=== PATIENT | female | born 1955 | race Caucasian/White ===

== ENCOUNTER 2025-03-24 12:26 | Outpatient (CLI) | payer MEDICARE, SELFPAY ==
--- NOTE | ~2025-03-24 | MMUS_ITS ---
EXAMINATION: MM diagnostic yvette RT w melina, US breast RT complete HISTORY: Palpable right breast mass TECHNIQUE: Additional 3-D tomosynthesis images of the right breast were performed and synthetic 2-D i mages were generated. CAD analysis was submitted and interpreted. High resolution complete right hardeep st ultrasound was performed. COMPARISON: Comparison to multiple prior studies sequentially, with oldest reviewed study dated 11/29. BREAST PARENCHYMAL COMPOSITION: Dense: The breasts are heterogeneously dense, which may obscure small masses FINDINGS: MAMMOGRAPHIC FINDINGS: There is a new irregular shaped mass in the subareolar location of the right breast. There are enlarg ed right axillary lymph nodes. There are no suspicious calcifications. ULTRASOUND: Complete US of all 4 quadrants of the right breast/s and retroareolar region was reviewed. At C7-9:00 , 3 cm from the nipple there is a complex irregular shaped hypoechoic vascular mass with parallel erica entation, mixed posterior attenuation measuring 4.6 x 1.4 x 3.2 cm. At 10:00, 8 cm from the nipple th ere is an oval parallel oriented hypoechoic 7 mm mass with no significant posterior features. There i s internal and marginal vascularity. There are multiple pathologic appearing lymph nodes which are en larged in the right axilla with effacement of the fatty hilum, suspicious for metastatic disease. IMPRESSION: 1. Complex right breast mass at 7-9:00, 3 cm from the nipple measuring up to 4.6 cm. Additional mass present at 10:00, 8 cm from the nipple measuring 7 mm, likely a satellite nodule. Multiple abnormal r ight axillary lymph nodes measuring up to 1.9 cm greatest dimension. 2. Ultrasound-guided biopsy of dominant right breast mass at 7-9:00 position as well as largest right axillary lymph node recommended. BI-RADS category 4, suspicious findings. Reviewed, dictated and finalized at location A. IMPRESSION: 1. Complex right breast mass at 7-9:00, 3 cm from the nipple measuring up to 4. 6 cm. Additional mass present at 10:00, 8 cm from the nipple measuring 7 mm, li clementine a satellite nodule. Multiple abnormal right axillary lymph nodes measuring up to 1.9 cm greatest dimension. 2. Ultrasound-guided biopsy of dominant right breast mass at 7-9:00 position as well as largest right axillary lymph node recommended. BI-RADS category 4, suspicious findings.
--- OUTSIDE RECORDS SUMMARY | 2025-03-24 12:31 | XMS_ITS | Clinical Summary ---
Author Organization [facility] Address [facility] [place] [address] Care Team Providers Care Plumbing Engineering Draftsperson Name Role Phone Leonard Morales MD Primary Care Provider [phone] Immunizations Immunization Administration Dates Next Due MODERNA COVID-19 (12+) MRNA, LNP-S, PF, 100 MCG/ 0.5 ML DOSE 12/13/2020,11/15/2020 Social History Tobacco Use Types Packs/Day Years Used Date Smoking Tobacco: Never Assessed Comments Unknown Sex and Gender Information Value Date Recorded Sex Assigned at Not on file Legal Sex Female 5:57 PM CDT Gender Identity Not on file Sexual Orientation Not on file Plan of Treatment Health Maintenance Due Date Last Done Comments Colorectal Cancer Screening Colonoscopy (10 Years) 1956 Hepatitis C 1974 DTaP, Tdap and Td Vaccines ( 1 - Tdap) 1975 Mammogram Screening 1996 Pneumococcal Vaccine: 50+ Years (1 of 1 - PCV) 2006 Zoster Vaccines (1 of 2) 2006 Dexa Scan (General) 2021 COVID-19 Vaccine (2023-2 5 season) 2024 12/13/2020, 11/15/2020 RSV Immunization or 60+ Years (1 - 1-dose 75+ series) 2031 Meningococcal B Vaccine Aged Out No l onger eligible based on patient's age to complete this topic Meningococcal Vaccine Aged Out No lorenzo manisha eligible based on patient's age to complete this topic RSV Immunizations Under 20 Months Aged Out No longer eligible b ased on patient's age to complete this topic Care Teams Plumbing Engineering Draftsperson Relationship Specialty Start Date End Date Leonard Morales MD [facility] General 04/10/16
--- OUTSIDE RECORDS SUMMARY | 2025-03-24 12:31 | XMS_ITS | Encounter Summary ---
Author Organization [facility] Care Team Providers Care Subassembly Assembler Name Role Phone Leonard Morales MD Primary Care Provider [phone] Kyle Rodriguez Primary Care Provider [phone] Lloyd Carrasco MD Unavailable [phone] Encounter Details Date Type Department Care Team (Latest Contact Info) Description 01/14/2019 Orders Only [facility]INCONV Provider, MD Dominga [address] [place], [place] [id number] Social History Tobacco Use Types Packs/Day Years Used Date Smoking Tobacco: Never Assessed Comments Unknown Sex and Gender Information Value Date Recorded Sex Assigned at Not on file Legal Sex Female 10:10 PM LOG ROPER Gender Identity Female 04/26/2022 10:45 AM CDT Sexual Orientation Straight 04/26/2022 10 :45 AM CDT documented as of this encounter Plan of Treatment Not on file documented as of this encounter Procedures Procedure Name Priority Date/Time Associated Diagnosis Comments SCAN - LABS 01/15/2019 12:00 AM LOG ROPER SCAN - LABS 01/15/2019 12:00 AM LOG ROPER documented in this encounter Results * SCAN - LABS (01/15/2019 12:00 AM LOG ROPER) Narrative 01/15/2019 12:00 AM LOG ROPER Ordered by an unspecified provider. Historical Provider Final Res ult * SCAN - LABS (01/15/2019 12:00 AM LOG ROPER) Narrative 01/15/2019 12:00 AM LOG ROPER Ordered by an unspecified provider. us Historical Provider Final Res ult documented in this encounter Visit Diagnoses Not on filedocumented in this encounter Care Teams Subassembly Assembler Relationship Specialty Start Date End Date Leonard Morales MD PCP - General Family Medicine 01/31/19 08/07/22 Kyle Rodriguez PA [address] [place] [address] PCP - General Family Medicine 08/08/22 Lloyd Carrasco MD [address] [place] [address] [place] [address] Dermatology 02/24/24 documented as of this encounter
--- OUTSIDE RECORDS SUMMARY | 2025-03-24 12:31 | XMS_ITS | Clinical Summary ---
Author Organization [facility] [facility] Address [address] [place] [address] Care Team Providers Care Small Offset Printer Name Role Phone Kyle Rodriguez Primary Care Provider [phone] Lloyd Carrasco MD Unavailable [phone] Allergies No known active allergies Medications methylPREDNISolo ne (MEDROL DOSEPACK) 4 mg DosepackIndicati ons:SI (sacroiliac) joint dysfunction Take as directed on package. 21 tablet 3 Active Additional Information Patient not taking.Reported on 03/08/2025 diclofenac sodium (VOLTAREN) 1 % gelIndications:S I (sacroiliac) joint dysfunction Apply 4 g topically 4 (four) times a day 100 g 2 3 Active Additional Information Patient not taking.Reported on 03/08/2025 ALPRAZolam (XANAX) 0.5 mg tabletIndication s:Anxiety Take 1 tablet (0.5 mg total) by mouth daily as needed for anxiety 30 tablet 4 Active risedronate (ACTONEL) 35 mg tabletIndication s:Age-related osteoporosis without current pathological fracture Take 1 tablet (35 mg total) by mouth every 7 days with water on empty stomach, nothing by mouth or lie down for next 30 minutes. 4 tablet 11 4 Active ciprofloxacin (CIPRO) 500 mg tablet Take 1 tablet (500 mg total) by mouth 2 (two) times a day for 5 days 10 tablet 5 025 Active Problems Problem Noted Date Diagnosed Date Kyphoscoliosis deformity of spine 08/26/2023 DDD (degenerative disc disease), lumbar 08/26/20 23 Age-related osteoporosis wit hout current pathological fracture 05/07/2022 Assessment & Plan (08/31/2024 3:44 PM CDT): Chronic condition not well controlled P.o. form Fosamax unable to tolerate Assessment & Plan (02/24/2024 1:56 PM CDT): Stat liquid fosamax. Assessment & Plan (08/26/2023 2:19 PM CDT): Chronic Intolerant to fosamax. Cannot swallow. Will need alternate. Patient given option and she will respond back on decision Assessment & Plan (05/07/2022 12:44 PM CDT): Chronic Start ca 1500mg a day Start vit d 5000 international units a day Start prolia Pure hypercholesterolemia 09/18/2021 Assessment & Plan (08/31/2024 11:09 PM CDT): Chronic and currently monitoring diet. Will follow labs. Assessment & Plan (05/07/2022 12:54 PM CDT): Chronic condition not at goal Patient prefers not to start statin therapy. She does agree to use red yeast rice and repeat in 6 months along with increasing exercise work on diet. Assessment & Plan (09/18/2021 2:30 PM AWNING MAKER): Chronic Work on diet and exercise. Repeat lipid panel in 6 mo. ANA (generalized anxiety disorder) 11/13/2019 Assessment & Plan (08/31/2024 11:07 PM CDT): Chronic Stable Continue xanax prn Assessment & Plan (11/14/2021 2:57 PM AWNING MAKER): Chronic Stable Continue xanax prn Assessment & Plan (01/27/2021 10:36 AM CDT): Chronic condition improved with use of buspirone. Continue with current regimen including BuSpar and Viibryd. Assessment & Plan (12/09/2020 9:09 AM AWNING MAKER): Refill xanax with #15 Start buspar 7.5mg bid for 1 week then increase 2tablets bid, Second script at 15mg bid Assessment & Plan (12/25/2019 10:09 AM AWNING MAKER): Start buspar 7.5mg bid She has not taken any xanax in the past 4 weeks. Assessment & Plan (11/13/2019 10:47 AM AWNING MAKER): Xanax 0.5mg every day prn #5 Flexural eczema 11/13/2019 Assessment & Plan (11/14/2021 2:52 PM AWNING MAKER): Chronic condition with current exerbation Start betamethasone lotion Assessment & Plan (11/13/2019 10:47 AM AWNING MAKER): Start betamethasone diproprionate oint Abnormal mammogram of left breast 01/16/2019 Age-related cataract of both eyes 09/12/2018 Grief at loss of child 09/12/2018 Assessment & Plan (12/25/2019 10:09 AM AWNING MAKER): Refer to [facility] counseling Assessment & Plan (11/13/2019 10:47 AM AWNING MAKER): Start viibryd starter stephanie and copay card Encounters Date Type Department Care Team Description 03/17/2025 Telephone [facility] Medical [facility] at [address] [place] [address] Kyle Rodriguez PA Additional Services Or Orders 03/08/2025 8:00 AM CDT Office Visit [facility] at [address] [place] [address] Kyle Rodriguez PA Medicare annual wellness visit, subsequent (Primary Dx); Mass of lower outer quadrant of right breast; Urethritis; Pure hypercholesterolemia from Last 3 Months Immunizations Immunization Administration Dates Next Due Influenza, Unspecified 08/31/2024(Deferr ed: Patient decision),08/26/2023(Deferred: Patient decision),07/12/2022(Deferred: Patient decision),07/12/2022(Deferred: Patient decision),09/18/2021(Deferred: Patient Refused) Moderna SARS-CoV-2 Monovalen t Vaccination (12+ YRS) 12/13/2020,11/15/2020 Pneumococcal Conjugate PCV 13 08/26/2023(Deferre d: Patient decision) Pneumococcal Conjugate Pcv20 08/26/2023( Deferred: Patient decision),02/18/2023(Deferred: Patient Refused) Pneumococcal Polysaccharide PPV23 2022(Deferred: Patient decision),02/18/2023(Deferred: Patient Refused) Surgical History Surgery Date Site/Laterality Comments CATARACT EXTRACTION Bilateral CHOLECYSTECTOMY BREAST EXCISIONAL BIOPSY 03/18/2014 Right Benign-several specimens. ([facility]) Medical History Medical History Date Comments Reactive depression Family History Medical History Relation Name Comments Hypertension Daughter Obesity Daughter Diabetes Father Prostate cancer Father Breast cancer Maternal cousin Breast cancer Mother 50's Diverticulitis Mother Breast cancer Mother's Sister Breast cancer Sister 1 Mental illness Sister 1 Other Sister 2 Breast cancer Sister 3 Relation Name Status Comments Daughter Alive Father Maternal cousin Mother Mother's Sister Sister 1 Alive Sister 2 Sister 3 Alive Son SUICIDE Social History Tobacco Use Types Packs/Day Years Used Date Smoking Tobacco: Former Cigarettes Q uit: 02/20/2019 Smokeless Tobacco: Never Tobacco Cessation:Counseling Given: Not Answered Alcohol Use Standard Drinks/Week Comments Yes 1 (1 standard drink = 0.6 oz pur e alcohol) 3-4 Times a week AUDIT-C Answer Date Recorded Q1: How often do you have a drink containing alc ohol? 2-3 times a week 03/08/2025 Q2: How many drinks containi ng alcohol do you have on a typical day when you are drinking? 1 or 2 03/08/2025 Q3: How often do you have si x or more drinks on one occasion? Never 03/08/2025 PHQ-2 Answer Date Recorded PHQ-2 Total Score (If total score is 3 or more points, staff should administer the PHQ-9) 3 03/08/2025 PHQ-9 Answer Date Recorded PHQ-9 Total Score 6 03/08/2025 Comments No Sex and Gender Information Value Date Recorded Sex Assigned at Not on file Legal Sex Female 10:10 PM AWNING MAKER Gender Identity Female 04/26/2022 10:45 AM CDT Sexual Orientation Straight 04/26/2022 10 :45 AM CDT Obstetrics History Para Term AB IAB SAB Ectopic Multiple Livin g Live Births 2 2 2 Date Outcome GA Total Labor Labor/2nd/3rd Weight Sex Type Anes PTL Gisel A1 A5 Name Clin Term Term Last Filed Vital Signs Vital Sign Reading Time Taken Comments Blood Pressure 152/60 03/08/2025 7:59 AM CDT Pulse 89 03/08/2025 7:59 AM CDT Temperature 36.3 C (97.3 F) 02/24/2024 1:00 PM CDT Respiratory Rate 16 03/08/2025 7:59 AM CDT Oxygen Saturation 98% 03/08/2025 7:59 AM CDT Inhaled Oxygen Concentration - - Weight 57.9 kg (127 lb 11.2 oz) 03/08/2025 7:59 AM CDT Height 165.1 cm (5' 5 ) 03/08/2025 7:59 AM CDT Body Mass Index 21.25 03/08/2025 7:59 AM CDT Plan of Treatment Health Maintenance Due Date Last Done Comments DTaP/Tdap/Td Vaccine (1 - Tdap) 1967 Hepatitis B Screening 1974 Pneumococcal vaccine 65+ (1 of 1 - PCV) 2006 Zoster Vaccine (1 of 2) 2006 Covid-19 Vaccine (5 - 2023-2 5 season) 2024 03/30/2022, 10/18/2021, 12/13/2020, Additional history exists Influenza Vaccine (Season Ended) 2025 Breast Cancer Screening-Mammogram 07/27/2025 07/27/2024, 07/25/2023, 11/29/2021, Additional history exists Depression Screening 03/08/2026 03/08/2025, 03/08/2025, 02/24/2024, Additional history exists Fall Risk Assessment 03/08/2026 03/08/2025, 02/24/2024, 02/18/2023, Additional history exists Well Visit 65+ 03/08/2026 03/08/2025, 02/09, 02/18/2023, Additional history exists Colon Cancer Screening-DNA Stool 04/21/2026 04/21/20 23, 03/19/2020 Osteoporosis Screening-Bone Density Scan 08/26/2026 08/26/2024, 03/23/2022 Hepatitis C Screening Completed 08/31/2021 Colon Cancer Screening-FIT Discontinued 04/21/2023, Procedures Procedure Name Priority Date/Time Associated Diagnosis Comments LIPID PANEL Routine 03/23/2025 12:41 PM CDT Medicare annual wellness visit, subsequent Pure hypercholesterolemia COMPREHENSIVE METABOLIC PANEL Routine 03/23/2025 12:41 PM CDT Medicare annual wellness visit, subsequent Pure hypercholesterolemia CBC WITH AUTO DIFFERENTIAL Routine 03/23/2025 12:41 PM CDT Medicare annual wellness visit, subsequent Pure hypercholesterolemia POCT URINALYSIS DIPSTICK Routine 03/08/2025 9:13 AM CDT Urethritis DEXA AXIAL SKELETON BONE DENSITY 1 OR MORE SITES Schedule Routine, Read Routine (OP Routine) 08/26/2024 3:37 PM CDT Age-related osteoporosis without current pathological fracture SCREENING MAMMOGRAM BILATERAL W SHIVAM Schedule Routine, Read Routine (OP Routine) 07/27/2024 8:21 AM CDT Screening mammogram, encounter for STOOL DNA COLOGUARD Routine 04/21/2023 6:30 AM CDT Colon cancer screening HEPATITIS C ANTIBODY Routine 08/31/2021 9:45 AM CDT Need for hepatitis C screening test from Last 3 Months or Most Recently Relevant to Health Maintenance Results * CBC with auto differential (03/23/2025 12:41 PM CDT) [facility] WBC 8.5 3.4 - 10.8 x10E3/uL [facility] - 01 RBC 4.46 3.77 - 5.28 x10E6/uL [facility] - 01 Hgb 14.2 11.1 - 15.9 g/dL [facility] - 01 Hct 42.9 34.0 - 46.6 % [facility] - 01 MCV 96 79 - 97 fL [facility] - 01 MCH 31.8 26.6 - 33.0 pg [facility] - 01 MCHC 33.1 31.5 - 35.7 g/dL [facility] - 01 Rdw 12.6 11.7 - 15.4 % [facility] - 01 Platelets 211 150 - 450 x10E3/uL [facility] - 01 Neutrophils pct 58 Not Estab. % [facility] - 01 Lymphs pct 27 Not Estab. % [facility] - 01 Monocytes pct 10 Not Estab. % [facility] - 01 Eosinophils pct 3 Not Estab. % [facility] - 01 Basophil pct 1 Not Estab. % [facility] - 01 Neutrophil abs 5.0 1.4 - 7.0 x10E3/uL [facility] - 01 Lymphs (Absolute) 2.3 0.7 - 3.1 x10E3/uL [facility] - 01 Monocyte abs 0.9 0.1 - 0.9 x10E3/uL [facility] - 01 Eosinophils, abs 0.3 0.0 - 0.4 x10E3/uL [facility] - 01 Basophils, abs 0.1 0.0 - 0.2 x10E3/uL [facility] - 01 Immature Granulocytes 1 Not Estab. % [facility] - 01 Immature Grans (Abs) 0.1 0.0 - 0.1 x10E3/uL [facility] - 01 Blood 03/23/2025 12:4 1 PM CDT 03/23/2025 Comment:KAUSHAL Quijano [facility] - 03/24/2025 5:08 AM CDT Performed at: 01 - [facility] [address] [id number] Channel Development Director: Albert Shore PhD, Phone: [phone] us Kyle KAT LAB BLOOD ORDERABLES Final Resu lt Performing Organization Address [facility]/ZIP Co de Phone Number [facility] - * (ABNORMAL) Lipid panel (03/23/2025 12:41 PM CDT) Cholesterol 193 100 - 199 mg/dL [facility] - 01 Triglycerides 145 0 - 149 mg/dL [facility] - 01 HDL Cholesterol 57 >39 mg/dL [facility] - 01 VLDL 25 5 - 40 mg/dL [facility] - 01 LDL, calculated 111(H) 0 - 99 mg/dL [facility] - 01 Blood 03/23/2025 12:4 1 PM CDT 03/23/2025 Comment:KAUSHAL Quijano [facility] - 03/24/2025 8:11 AM CDT Performed at: 01 - [address] [id number] Channel Development Director: Albert Shore PhD, Phone: [phone] us Kyle KAT LAB BLOOD ORDERABLES Final Resu lt Performing Organization Address [facility] Co de Phone Number [facility] - * (ABNORMAL) Comprehensive metabolic panel (03/23/2025 12:41 PM CDT) Pathologist [facility] Glucose 86 70 - 99 mg/dL [facility] - 01 BUN 7(L) 8 - 27 mg/dL [facility] - 01 Creatinine, Serum 0.53(L) 0.57 - 1.00 mg/dL [facility] - 01 eGFR 101 >59 mL/min/1.7 3 [facility] - 01 BUN/creat ratio 13 12 - 28 [facility] - 01 Sodium 141 134 - 144 mmol/L [facility] - 01 Potassium, sr 4.0 3.5 - 5.2 mmol/L [facility] - 01 Chloride 104 96 - 106 mmol/L [facility] - 01 CO2 25 20 - 29 mmol/L [facility] - 01 Calcium 9.4 8.7 - 10.3 mg/dL [facility] - 01 Protein, sr 6.3 6.0 - 8.5 g/dL [facility] - 01 Albumin 4.2 3.9 - 4.9 g/dL [facility] - 01 Globulin, Total 2.1 1.5 - 4.5 g/dL [facility] - 01 Bilirubin, Total 0.7 0.0 - 1.2 mg/dL [facility] - 01 Alk phos 78 44 - 121 IU/L [facility] - 01 AST 19 0 - 40 IU/L [facility] - 01 ALT 13 0 - 32 IU/L [facility] - 01 Blood 03/23/2025 12:4 1 PM CDT 03/23/2025 Comment:UC Narrative [facility] - 03/24/2025 8:11 AM CDT Performed at: - [address] [id number] Channel Development Director: Albert Shore PhD, Phone: [phone] Kyle KAT LAB BLOOD ORDERABLES Final Resu lt [facility] - * (ABNORMAL) POCT urinalysis dipstick (03/08/2025 9:13 AM CDT) Color, Urine, POC Dark Yellow Clarity, ur, POC Clear Clear Glucose, ur, POC Negative Negative MG/DL Bilirubin, ur, POC Small Negative, Small, Moderate, Large Ketones, ur, POC Trace(A) Negative Specific [place], POC 1.030 1.003 - 1.030 Blood, ur, POC Small(A) Negative pH, ur, POC 5.5 5.0 - 8.0 Protein, ur, POC 30.(A) Negative Urobilinogen, urine, POC 0.2 0.2 - 1.0 mg/dL Nitrite, ur, POC Negative Negative Leukocytes, ur, POC Trace(A) Negative Lot Number [id number] Urine 03/08/2025 9:13 AM CDT us Kyle KAT POINT OF CARE TEST ORDERABLES F inal Result * Dexa Axial Skeleton Bone Density 1 or 2 Site (08/26/2024 3:37 PM CDT) Anatomical Region Laterality Modality Body N/A Mammography 08/26/2024 6:31 PM CDT Narrative 08/26/2024 6:32 PM CDT EXAM DESCRIPTION: DEXA AXIAL SKELETON BONE DENSITY 1 OR MORE SITES REASON FOR STUDY: 69 y/o year old F with given history of: Post menopausal status. Patient has taken/is taking vitamin-D and calcium. Can Technician/Model: LucidEra A (S/N [id number]) CLINICAL INFORMATION: Current height: 64 inches Maximum height: 66.5 inches Weight: 136 pounds Risk factors: None COMPARISON: 03/23/2022 FINDINGS: AP LUMBAR SPINE L1-L4: Total BMD is 0.804 g/cm2 T-score is -2.2 This is a 6.9% increase in comparison to prior exam which is statistically significant. LEFT HIP: Total BMD is 0.580 g/cm2 T-score is -3.0 This is a 4.2% decrease in comparison to prior exam which is not statistically significant. Femoral neck BMD is 0.505 g/cm2 T-score is -3.1 FRAX: FRAX not reported due to T-scores of hip, femoral neck and/or spine being at or below -2.5 (Osteoporosis). IMPRESSION: Osteoporosis. REFERENCE: Bone mineral density: T-Score: Normal (T-score above or = -1.0) Low bone mass (T-score between -1.0 and -2.5) replaces the previously used term osteopenia Osteoporosis (T-score = or below -2.5) Z-Score: Within the expected range for age (Z-score above -2.0) Below the expected range for age (Z-score is -2.0 or below) Please see below follow up recommendations. Medical evaluation for secondary causes of low bone mineral density may be appropriate. FRAX is a World Health Organization validated fracture risk assessment tool that calculates a person's 10 year probability of a major osteoporosis related fracture and hip fracture. According to the National Osteoporosis Foundation guidelines, postmenopausal women and men age 50 or older with low bone mass and a 10 year probability of a major osteoporosis related fracture = or greater than 20% or a 10 year probability of a hip fracture = or greater than 3% should be considered for pharmacological treatment for the prevention of osteoporosis. For further information, including treatment recommendations, please refer to the 2019 ISCD Official Positions (http://www.iscd.org) and the NOF's Clinician's Guide to Prevention and Treatment of Osteoporosis (http://www.nof.org/professionals/clinical-guidelines) THIS IS AN ELECTRONICALLY VERIFIED FINAL REPORT 08/26/2024 6:32 PM - Electronically signed by Bonnie Travis M.D. TW: TW Report ID: [id number] Reading Location: [id number] Procedure Note Bonnie Travis MD - 08/26/2024 EXAM DESCRIPTION: DEXA AXIAL SKELETON BONE DENSITY 1 OR MORE SITES REASON FOR STUDY: 69 y/o year old F with given history of: Post menopausal status. Patient has taken/is taking vitamin-D and calcium. Can Technician/Model: LucidEra A (S/N [id number]) CLINICAL INFORMATION: Current height: 64 inches Maximum height: 66.5 inches Weight: 136 pounds Risk factors: None COMPARISON: 03/23/2022 FINDINGS: AP LUMBAR SPINE L1-L4: Total BMD is 0.804 g/cm2 T-score is -2.2 This is a 6.9% increase in comparison to prior exam which is statistically significant. LEFT HIP: Total BMD is 0.580 g/cm2 T-score is -3.0 This is a 4.2% decrease in comparison to prior exam which is notstatistically significant. Femoral neck BMD is 0.505 g/cm2 T-score is -3.1 FRAX: FRAX not reported due to T-scores of hip, femoral neck and/or spine beingat or below -2.5 (Osteoporosis). IMPRESSION: Osteoporosis. REFERENCE: Bone mineral density: T-Score: Normal (T-score above or = -1.0) Low bone mass (T-score between -1.0 and -2.5) replaces thepreviously used term osteopenia Osteoporosis (T-score = or below -2.5) Z-Score: Within the expected range for age (Z-score above -2.0) Below the expected range for age (Z-score is -2.0 or below) Please see below follow up recommendations. Medical evaluation forsecondary causes of low bone mineral density may be appropriate. FRAX is a World Health Organization validated fracture risk assessmenttool that calculates a person's 10 year probability of a major osteoporosisrelated fracture and hip fracture. According to the National OsteoporosisFoundation guidelines, postmenopausal women and men age 50 or older with low bonemass and a 10 year probability of a major osteoporosis related fracture = or greater than 20% or a 10 year probability of a hip fracture = or greaterthan 3% should be considered for pharmacological treatment for the preventionof osteoporosis. For further information, including treatment recommendations, please referto the 2019 ISCD Official Positions (http://www.iscd.org) and the NOF's Clinician's Guide to Prevention and Treatment of Osteoporosis (http://www.nof.org/professionals/clinical-guidelines) THIS IS AN ELECTRONICALLY VERIFIED FINAL REPORT 08/26/2024 6:32 PM - Electronically signed by Bonnie Travis M.D. TW: FLORI Report ID: [id number] Reading Location: [id number] Kyle KAT IM DXA PROCEDURES Final Result * Screening Mammogram Bilateral W Shivam (07/27/2024 8:21 AM CDT) Anatomical Region Laterality Modality Breast Bilateral Mammography Impressions 07/27/2024 9:00 AM CDT BI-RADS ATLAS category (overall): 2 - Benign There is no mammographic evidence of malignancy. A 1 year screening mammogram is recommended. The patient has been or will be contacted. We recommend annual screening mammography for women at average risk of breast cancer beginning at age 40, based on guidelines of the [place] [employer] (ACR Practice Parameter for the Performance of Screening and Diagnostic Mammography) and [place] [employer]. For women with and elevated risk of breast cancer, please refer to the ACR Practice Parameter for specific screening recommendations. The patient will be entered into a reminder system with a target due date of 1 year for her next screening exam. Narrative 07/27/2024 9:00 AM CDT Screening Mammogram Bilateral W Shivam: 07/27/24 The study was acquired using full field digital technology and interpreted from soft copy. 2D digital mammographic views, as well as 3D digital tomosynthesis were performed in the CC and MLO projections. CLINICAL: Screening mammogram. No relevant medical history has been documented for this patient. History of breast cancer in Mother, Sister, Sister, Mother's Sister, Maternal cousin. COMPARISONS: 07/25/2023 SCREENING MAMMOGRAM BILATERAL W SHIVAM 11/29/2021 SCREENING MAMMOGRAM BILATERAL W SHIVAM 10/01/2014 Diagnostic Mammogram 2D Right 03/18/2014 Radiologic Examination of Surgical Specimen 03/12/2014 Diagnostic Mammogram 2D Right 03/10/2014 Screening Mammogram 2D Bilateral BREAST TISSUE: The breasts are heterogeneously dense, which may obscure small masses. FINDINGS: Suboptimal examination secondary to difficulty with patient positioning related to the patient's physical condition/body habitus. There are postoperative findings in the right breast. There is no new suspicious finding in either breast within the limitations of this exam. us Kyle KAT IMG MAMMO PROCEDURES Final Resu lt * Stool DNA - Cologuard (04/21/2023 6:30 AM CDT) Stool DNA - Cologuard Negative Negative [employer] (CLIA #:[id number]) Comment: NEGATIVE TEST RESULT. A negative Cologuard result indicates a low likelihood that a colorectal cancer (CRC) or advanced adenoma (adenomatous polyps with more advanced pre-malignant features) is present. The chance that a person with a negative Cologuard test has a colorectal cancer is less than 1 in 1500 (negative predictive value >99.9%) or has an advanced adenoma is less than 5.3% (negative predictive value 94.7%). These data are based on a prospective cross-sectional study of 10,000 individuals at average risk for colorectal cancer who were screened with both Cologuard and colonoscopy. (Esteban Velez al, N Engl J Med 2014;370(14):6897-6094) The normal value (reference range) for this assay is negative. COLOGUARD RE-SCREENING RECOMMENDATION: Periodic colorectal cancer screening is an important part of preventive healthcare for asymptomatic individuals at average risk for colorectal cancer. Following a negative Cologuard result, the [place] [employer] and U.S. Multi-Society Task Force screening guidelines recommend a Cologuard re-screening interval of 3 years. References: [place] [employer] Guideline for Colorectal Cancer Screening: https://www.cancer.org/cancer/wncqe-wurqaa-yplrfz/ahuhbvzxh-ltjkyyqig-xcvajim/ac s-rec ommendations.html.; Jake DK, Cece CR, Jayde NavasK, Colorectal Cancer Screening: Recommendations for Physicians and Patients from the U.S. Multi-Society Task Force on Colorectal Cancer Screening , Am J Gastroenterology 2017; 112:4695-2356. TEST DESCRIPTION: Composite algorithmic analysis of stool DNA-biomarkers with hemoglobin immunoassay. Quantitative values of individual biomarkers are not reportable and are not associated with individual biomarker result reference ranges. Cologuard is intended for colorectal cancer screening of adults of either sex, 45 years or older, who are at average-risk for colorectal cancer (CRC). Cologuard has been approved for use by the U.S. FDA. The performance of Cologuard was established in a cross sectional study of average-risk adults aged 50-84. Cologuard performance in patients ages 45 to 49 years was estimated by sub-group analysis of near-age groups. Colonoscopies performed for a positive result may find as the most clinically significant lesion: colorectal cancer [4.0%], advanced adenoma (including sessile serrated polyps greater than or equal to 1cm diameter) [20%] or non- advanced adenoma [31%]; or no colorectal neoplasia [45%]. These estimates are derived from a prospective cross-sectional screening study of 10,000 individuals at average risk for colorectal cancer who were screened with both Cologuard and colonoscopy. (Esteban Velez al, N Engl J Med 2014;370(14):0404-9454.) Cologuard may produce a false negative or false positive result (no colorectal cancer or precancerous polyp present at colonoscopy follow up). A negative Cologuard test result does not guarantee the absence of CRC or advanced adenoma (pre-cancer). The current Cologuard screening interval is every 3 years. ([place] [employer] and U.S. Multi-Society Task Force). Cologuard performance data in a 10,000 patient pivotal study using colonoscopy as the reference method can be accessed at the following location: www.[employer].MeetCast/results. Additional description of the Cologuard test process, warnings and precautions can be found at www.cologuard.com. Stool 04/21/2023 6:30 AM CDT 04/23/2023 5:11 PM CDT us Kyle KAT LAB BODY FLUIDS AND STOOLS ORDE RABQAMAR Final Result [employer] (CLIA #:[id number]) [address] [place] [address] * Hepatitis C antibody (08/31/2021 9:45 AM CDT) [place] [facility] Hep C Ab <0.1 0.0 - 0.9 s/co ratio [facility] - 01 Comment: Negative: < 0.8 Indeterminate: 0.8 - 0.9 Positive: > 0.9 The CDC recommends that a positive HCV antibody result be followed up with a HCV Nucleic Acid Amplification test (113801). Blood specimen (specimen) 08/31/2021 9:45 AM CDT 08/31/2021 Narrative [facility] - 09/01/2021 5:07 AM CDT Performed at: 01 - [facility] [id number] Channel Development Director: Albert Shore PhD, Phone: [phone] us Kyle KAT LAB MICROBIOLOGY - GENERAL ORDChris RABLES Final Result [facility] - 01 from Last 3 Months or Most Recently Relevant to Health Maintenance [place] [address] MEDICARE AETNA SENIOR SUPPLEMENT Care Teams Small Offset Printer Relationship Specialty Start Date End Date Kyle Rodriguez PA [address] [facility] [place] [address] PCP - General Family Medicine 08/08/22 Lloyd Carrasco MD [address] [place] [address] [place] [address] Dermatology 02/24/24
--- OUTSIDE RECORDS SUMMARY | 2025-03-24 12:32 | XMS_ITS | Continuity of Care Document ---
Author Organization [facility] Address [address] [place] [address] [address] [place] [address] Phone Care Team Providers Care Supervisor Color Paste Mixing Name Role Phone Quintin Calvo MD Unavailable Unavailable Procedures Procedure Date CATARACT SURG W/IOL, 1 STAGE CATARACT SURG W/IOL, 1 STAGE OFFICE/OUTPATIENT VISIT, [facility] OPHTHALMIC BIOMETRY OPHTHALMIC BIOMETRY Advance Directives Directive Yes / No Effective Date File Name No Information Encounters Encounter Description Practice Location Reason(s) For Visit Diagnoses Date Provider Providers Copied on Encounter Ophthalmology [facility], [address] [place] [address], [place], [place], [address] [place] [address], tel:[phone] [facility] [place] No Information 8 Lubna Ribeiro. [address] [facility], [address], [place], [place], [id number], . tel:[phone] Referring Provider: Quintin Perez, [address] [place] [address] [address], [place], [address]. tel:[phone] [facility], [address] [place] [address] [address], [id number], tel:[phone] [facility] [place] No Information 8 Lubna Ribeiro. [address] [place] [address], [facility] [address], [id number], . tel:[phone] Referring Provider: Quintin Perez, [address] [place] [address] [address], [place], [address]. tel:[phone] OFFICE/OUTPAT IENT VISIT, NEW [facility], [address] [facility] [address], [place], [place], [id number], [place] tel:[phone] [facility] [place] No Information 8 Lubna Ribeiro. [address] [facility], [address], [place], [place], [address], [place]. tel:[phone] Referring Provider: Quintin ePrez, [address] [facility] [address], [place], [address]. tel:[phone] Family History Family Member Type Diagnosis Age At Onset No Information Payers Payer name Insurance type Covered libertarian ID Authoriza tion(s) No Information Social History [...]
--- OUTSIDE RECORDS SUMMARY | 2025-03-24 12:32 | XMS_ITS | Referral Summary ---
Author Organization [facility] [address] [facility] Address [address] [place] [address] Care Team Providers Care Flatwork Supervisor Name Role Phone Kyle Rodriguez Primary Care Provider [phone] Lloyd Carrasco MD Unavailable [phone] Encounters Date Type Department Care Team Description 03/17/[address] [facility] Family Medicine at [address] [place] [phone] Kyle Rodriguez PA Additional Services Or Orders 03/08/2025 8:00 AM CDT Office Visit [facility] Family Medicine at [address] [place] [phone] Kyle Rodriguez PA Medicare annual wellness visit, subsequent (Primary Dx); Mass of lower outer quadrant of right breast; Urethritis; Pure hypercholesterolemia from Last 3 Months Allergies No known active allergies Medications methylPREDNISolo [...] diet. Assessment & Plan (09/18/2021 2:30 PM LABEL CUTTER): Chronic Work on diet and exercise. Repeat lipid panel in 6 mo. ANA (generalized anxiety disorder) 11/13/2019 Assessment & Plan (08/31/2024 11:07 PM CDT): Chronic Stable Continue xanax prn Assessment & Plan (11/14/2021 2:57 PM LABEL CUTTER): Chronic Stable Continue xanax prn Assessment & Plan (01/27/2021 10:36 AM CDT): Chronic condition improved with use of buspirone. Continue with current regimen including BuSpar and Viibryd. Assessment & Plan (12/09/2020 9:09 AM LABEL CUTTER): Refill xanax with #15 Start buspar 7.5mg bid for 1 week then increase 2tablets bid, Second script at 15mg bid Assessment & Plan (12/25/2019 10:09 AM LABEL CUTTER): Start buspar 7.5mg bid She has not taken any xanax in the past 4 weeks. Assessment & Plan (11/13/2019 10:47 AM LABEL CUTTER): Xanax 0.5mg every day prn #5 Flexural eczema 11/13/2019 Assessment & Plan (11/14/2021 2:52 PM LABEL CUTTER): Chronic condition with current exerbation Start betamethasone lotion Assessment & Plan (11/13/2019 10:47 AM LABEL CUTTER): Start betamethasone diproprionate oint Abnormal mammogram of left breast 01/16/2019 Age-related cataract of both eyes 09/12/2018 Grief at loss of child 09/12/2018 Assessment & Plan (12/25/2019 10:09 AM LABEL CUTTER): Refer to [facility] counseling Assessment & Plan (11/13/2019 10:47 AM LABEL CUTTER): Start viibryd starter stephanie and copay card Immunizations Immunization Administration Dates Next Due Influenza, Unspecified 08/31/2024(Deferr ed: Patient decision),08/26/2023(Deferred: Patient decision),07/12/2022(Deferred: Patient decision),07/12/2022(Deferred: Patient decision),09/18/2021(Deferred: Patient Refused) Moderna SARS-CoV-2 Monovalen t Vaccination (12+ YRS) 12/13/2020,11/15/2020 Pneumococcal Conjugate PCV 13 08/26/2023(Deferre d: Patient decision) Pneumococcal Conjugate Pcv20 08/26/2023( Deferred: Patient decision),02/18/2023(Deferred: Patient Refused) Pneumococcal Polysaccharide PPV23 2022(Deferred: Patient decision),02/18/2023(Deferred: Patient Refused) Social History Tobacco Use Types Packs/Day Years [...] on file Legal Sex Female 10:10 PM LABEL CUTTER Gender Identity Female 04/26/2022 10:45 AM CDT Sexual Orientation Straight 04/26/2022 10 :45 AM CDT Last Filed Vital Signs Vital Sign Reading [...] 03/08/2025 7:59 AM CDT Plan of Treatment Not on file Procedures Procedure Name Priority Date/Time Associated Diagnosis [...] with auto differential (03/23/2025 12:41 PM CDT) [facility] WBC 8.5 3.4 - 10.8 x10E3/uL [...] - 03/24/2025 5:08 AM CDT Performed at: - [facility] [address] [id number] Lime Mixer Tender: Albert Shore PhD, Phone: [phone] Kyle KAT LAB BLOOD ORDERABLES Final Resu lt [facility] - * (ABNORMAL) Lipid panel [...] 03/24/2025 8:11 AM CDT Performed at: - [place] [id number] Lime Mixer Tender: Albert Shore PhD, Phone: [phone] Kyle KAT LAB BLOOD ORDERABLES Final Resu lt Performing Organization Address [facility]/ZIP Co de Phone Number [facility] - 01 * (ABNORMAL) Comprehensive metabolic panel (03/23/2025 12:41 PM CDT) Glucose 86 70 - 99 mg/dL [facility] [...] Blood 03/23/2025 12:4 1 PM CDT 03/23/2025 Comment: Narrative [facility] - 03/24/2025 8:11 AM CDT Performed at: [address] [id number] Lime Mixer Tender: Albert Shore PhD, Phone: [phone] Kyle KAT LAB BLOOD ORDERABLES Final [facility] * (ABNORMAL) POCT urinalysis dipstick (03/08/2025 9:13 AM CDT) Color, Urine, POC Dark Yellow Clarity, ur, POC Clear Clear Glucose, ur, POC Negative Negative MG/DL Bilirubin, ur, POC Small Negative, Small, Moderate, Large Ketones, ur, POC Trace(A) Negative Specific [place], POC 1.030 1.003 - 1.030 Blood, ur, POC Small(A) Negative pH, ur, POC 5.5 5.0 - 8.0 Protein, ur, POC 30.(A) Negative Urobilinogen, urine, POC 0.2 0.2 - 1.0 mg/dL Nitrite, ur, POC Negative Negative Leukocytes, ur, POC Trace(A) Negative Lot Number [id number] Urine 03/08/2025 9:13 AM CDT Kyle KAT POINT OF CARE TEST ORDERABLES [...] Patient has taken/is taking vitamin-D and calcium. Continuous Loft Operator/Model: [employer]ant[employer] A (S/N [id number]) CLINICAL INFORMATION: Current height: 64 inches Maximum [...] Bonnie Travis M.D. TW: TW Report ID: [id number] Reading Location: [place] [address] Procedure Note Bonnie Travis MD - 08/26/2024 EXAM DESCRIPTION: DEXA AXIAL SKELETON BONE DENSITY 1 OR MORE SITES REASON FOR STUDY: 69 y/o year old F with given history of: Post menopausal status. Patient has taken/is taking vitamin-D and calcium. Continuous Loft Operator/Model: [employer]ant[employer] A (S/N [id number]) CLINICAL INFORMATION: Current height: 64 inches Maximum [...] Bonnie Travis M.D. TW: FLORI Report ID: [id number] Reading Location: [id number] Kyle KAT IM DXA PROCEDURES Final Result [...] age 40, based on guidelines of the [place] [employer] (ACR Practice Parameter for the Performance of Screening and Diagnostic Mammography) and [place] [employer]nec[employer]. For women [...] CDT) Stool DNA - Cologuard Negative Negative [employer] (CLIA #:[id number]) Comment: NEGATIVE TEST RESULT. A negative Cologuard [...] (Esteban Velez al, N Engl J Med 2014;370(14):8036-3971) The normal value (reference range) for this assay is negative. COLOGUARD RE-SCREENING RECOMMENDATION: Periodic colorectal cancer screening is an important part of preventive healthcare for asymptomatic individuals at average risk for colorectal cancer. Following a negative Cologuard result, the [place] [employer] Society and U.S. Multi-Society Task Force screening guidelines recommend a Cologuard re-screening interval of 3 years. References: [place] [employer] Guideline for Colorectal Cancer Screening: https://www.cancer.org/cancer/frbfm-ovwiwy-brievh/kkiqpoqal-uzawuagsm-janbdnk/ac s-rec ommendations.html.; Jake DK, Cece WATKINS, Jayde NavasK, Colorectal Cancer Screening: Recommendations for Physicians and Patients from the U.S. Multi-Society Task Force on Colorectal Cancer Screening , Am J Gastroenterology 2017; 112:4658-0800. TEST DESCRIPTION: Composite algorithmic analysis of stool [...] screened with both Cologuard and colonoscopy. (Esteban Hernandez et al, N Engl J Med 2014;370(14):1180-6177.) Cologuard may produce a false negative or false positive result (no colorectal cancer or precancerous polyp present at colonoscopy follow up). A negative Cologuard test result does not guarantee the absence of CRC or advanced adenoma (pre-cancer). The current Cologuard screening interval is every 3 years. ([place] [employer] and U.S. Multi-Society Task Force). Cologuard performance data in a 10,000 patient pivotal study using colonoscopy as the reference method can be accessed at the following location: www.[employer].ProMed/results. Additional description of the Cologuard test process, warnings and precautions can be found at www.cologuard.com. Stool 04/21/2023 6:30 AM CDT 04/23/2023 5:11 PM CDT us Kyle KAT LAB BODY FLUIDS AND STOOLS ORDChris RABQAMAR Final Result [employer] [facility] (CLIA #:[id number]) [address] [place] [address] * Hepatitis C antibody (08/31/2021 9:45 AM CDT) [facility] Hep C Ab <0.1 0.0 - 0.9 s/co ratio [facility] - 01 Comment: Negative: < 0.8 Indeterminate: 0.8 - 0.9 Positive: > 0.9 The CDC recommends that a positive HCV antibody result be followed up with a HCV Nucleic Acid Amplification test (320113). Blood specimen (specimen) 08/31/2021 9:45 AM CDT 08/31/2021 Narrative [facility] - 09/01/2021 5:07 AM CDT Performed at: - [facility] [id number] Lime Mixer Tender: Albert Shore PhD, Phone: [phone] us Kyle KAT LAB MICROBIOLOGY - GENERAL ORDChris RABLES Final Result [facility] - 01 from Last 3 Months or Most Recently Relevant to Health [place] [address] MEDICARE AETNA SENIOR SUPPLEMENT Care Teams Flatwork Supervisor Relationship Specialty Start Date End Date Kyle Rodriguez PA [address] [facility] [place] [address] PCP - General Family Medicine 08/08/22 Lloyd Carrasco MD [address] [place] [address] [place] [address] Dermatology 02/24/24
== END 2025-03-24 12:27 | disposition home or self-care (01) ==
LOC: ANHIMG 12:30
PROVIDERS: PCP Physician Assistant Medical; Visit Provider Physician Assistant Medical
DX: N63.13 Unspecified lump in the right breast, lower outer quadrant (principal); N63.11 Unspecified lump in the right breast, upper outer quadrant
CPT/HCPCS: 76641; 77061; 77065; G0279

== ENCOUNTER 2025-04-23 09:53 | Outpatient (CLI) | payer MEDICARE, SELFPAY ==
--- NOTE | 2025-04-23 | ECHO_ITS ---
Patient Info Name: Love Mata Age: 70 years : 1955 Gender: Female Ht: 64 in Wt: 121 lbs BSA: 1.57 m2 HR: 84 bpm BP: 139 / 91 mmHg Technical Quality: Fair Exam Date: 04/23/2025 11:02 AM Patient Status: O Admit Date: 04/23/2025 Exam Type: CA echo doppler color flow Complete two-dimensional, color flow and Doppler transthoracic echocardiogram is performed. Sales Review Clerk: Anabel Sultana Attending Provider: Lilly Aguilar Summary 1. Complete two-dimensional, color flow and Doppler transthoracic echocardiogram is performed. 2. Left ventricular chamber dimension is normal. 3. Left ventricular systolic function is normal, estimated at 65-70. 4. The left ventricular diastolic function is grade I diastolic dysfunction. 5. Global longitudinal strain is normal at -21.1%. 6. E/e' 13 is mildly elevated. 7. The mitral valve has a mildly calcified annulus. 8. No pulmonary hypertension, estimated pulmonary arterial systolic pressure is 25 mmHg. 9. There is trace pulmonic regurgitation. Left Ventricle E/e' 13 is mildly elevated. Left ventricular chamber dimension is normal. Left ventricular systolic function is normal, estimated at 65-70. The left ventricular diastolic function is grade I diastolic dysfunction. Global longitudinal strain is normal at -21.1%. Right Ventricle Right ventricular chamber dimension is normal. Right ventricular systolic function is normal. Left Atria Left atrial chamber dimension is normal. Right Atria Right atrial chamber dimension is normal. Aortic Valve The aortic valve is trileaflet. There is no aortic valve stenosis. There is no aortic valve regurgitation. Pulmonic Valve There is trace pulmonic regurgitation. Mitral Valve The mitral valve has a mildly calcified annulus. There is no mitral valve stenosis. There is no mitral valve regurgitation. Tricuspid Valve There is no tricuspid valve regurgitation. No pulmonary hypertension, estimated pulmonary arterial systolic pressure is 25 mmHg. Pericardium/Pleural There is no pericardial effusion. Inferior Vena Cava Normal inferior vena cava with >50% collapse upon inspiration consistent with normal right atrial pressure, 5 mmHg. Aorta The aortic root size at the sinus of Valsalva is normal. Left Ventricular Outflow Tract Name Value Normal LVOT 2D LVOT Diameter 1.9 cm LVOT Doppler LVOT Peak Velocity 94 cm/s LVOT Peak Gradient 4 mmHg LVOT Mean Gradient 2 mmHg LVOT VTI 18 cm LVOT VTI/AV VTI Ratio 0.9 LVOT Stroke Volume 54 ml LVOT CO 4.0 l/min LVOT CI 2.5 l/min/m2 Pulmonic Valve Name Value Normal RVOT Doppler RVOT Peak Velocity 65 cm/s RVOT Peak Gradient 2 mmHg PV Doppler PV Peak Velocity 84 cm/s PV Peak Gradient 3 mmHg Mitral Valve Name Value Normal MV Regurgitation Doppler MR Peak Gradient 68 mmHg MV Diastolic Function MV E Peak Velocity 83 cm/s MV A Peak Velocity 141 cm/s MV E/A 0.6 MV Decel Time (PW) 256 ms Tricuspid Valve Name Value Normal TV Regurgitation Doppler TR Peak Velocity 222 cm/s TR Peak Gradient 20 mmHg Estimated PAP/RSVP RA Pressure 5 mmHg <=5 PA Systolic Pressure 25 mmHg <36 RV Systolic Pressure 25 mmHg <36 Aorta Name Value Normal Ascending Aorta Ao Root Diameter (MM) 3.6 cm Ao Root Diam Index (MM) 2.3 cm/m2 Aortic Valve Name Value Normal AV Doppler AV Peak Velocity 102 cm/s AV Peak Gradient 4 mmHg AV Mean Gradient 2 mmHg AV VTI 20 cm AV Area (Cont Eq VTI) 2.7 cm2 >=3.0 AV Area (Cont Eq Sunny) 2.7 cm2 AV DI (Sunny) 0.92 AV Regurgitation 2D LVOT Area 3.0 cm2 Ventricles Name Value Normal LV Dimensions 2D/MM IVS Diastolic Thickness (2D) 0.6 cm 0.6-1.0 LVID Diastole (2D) 3.8 cm 3.8-5.2 LVIW Diastolic Thickness (2D) 0.6 cm 0.6-0.9 LVID Systole (2D) 2.0 cm 2.2-3.5 LVOT Diameter 1.9 cm LV Mass (2D Cubed) 62.31 g 67.00-162.00 LV Mass Index (2D Cubed) 40 g/m2 43-95 Relative Wall Thickness (2D) 0.34 <=0.42 LV Fractional Shortening/Ejection Fraction 2D/MM LV Fractional Shortening (2D) 46 % 27-45 LV EF (2D Teichholz) 78 % LV Diastolic Volume (4C MOD) 55 ml LV EF (4C MOD) 56 % LV Diastolic Volume (2C MOD) 54 ml LV EF (2C MOD) 68 % LV Diastolic Volume (BP MOD) 56 ml 46-106 LV Diastolic Volume Index (BP MOD) 35 ml/m2 29-61 LV Systolic Volume (BP MOD) 21 ml 14-42 LV Systolic Volume Index (BP MOD) 13 ml/m2 8-24 LV EF (BP MOD) 62 % 54-74 LV Diastolic Length (4C) 6.3 cm LV Systolic Length (4C) 5.2 cm LV Stroke Volume (4C MOD) 31 ml Atria Name Value Normal LA Dimensions LA Dimension (MM) 2.4 cm 2.7-3.8 LA Volume (4C A-L) 32 ml LA Volume (BP A-L) 41 ml RA Dimensions RA Systolic Major [place] Length (4C) 3.0 cm 2.2-2.8 RA Area (4C) 7.0 cm2 <=18.0 EchoPAC Name Value Normal AutoEF LVCO_BiP_Q (Sess3HTQ) 2.8 l/min LVEF_BiP_Q (Wuzv2JZK) 64 % LVSV_BiP_Q (Tsnw6KUK) 38 ml LVVED_BiP_Q (Vppf9CBC) 59 ml LVVES_BiP_Q (Svtr1NDI) 22 ml HR_4Ch_Q (Okwv0TNW) 76 bpm LVCO_4Ch_Q (Jtty1LCJ) 2.5 l/min LVEF_4Ch_Q (Gxpu0IAF) 62 % LVLd_4Ch_Q (Tioa6TLZ) 6.7 cm LVLs_4Ch_Q (Fwun0GQO) 5.4 cm LVSV_4Ch_Q (Holk2HQX) 33 ml LVVED_4Ch_Q (Bdaq8UKR) 53 ml LVVES_4Ch_Q (Beox8KJF) 20 ml HR_2Ch_Q (Glgt5VKO) 72 bpm LVCO_2Ch_Q (Iqxc2DAA) 3.1 l/min LVEF_2Ch_Q (Xclg0PVX) 64 % LVLd_2Ch_Q (Lutd9AGV) 7.0 cm LVLs_2Ch_Q (Qdyd1ARC) 5.4 cm LVSV_2Ch_Q (Rkkh2WHL) 42 ml LVVED_2Ch_Q (Keer9KMK) 66 ml LVVES_2Ch_Q (Bcyg1ZMI) 23 ml TANIA LV Apical Anterior Longitudinal Strain (TANIA) -18.3 % LV Apical Anteroseptal Longitudinal Strain (TANIA) -29.1 % LV Apical Inferior Longitudinal Strain (TANIA) -33.3 % LV Apical Lateral Longitudinal Strain (TANIA) -18.7 % LV Apical Posterior Longitudinal Strain (TANIA) -24.0 % LV Apical Septal Longitudinal Strain (TANIA) -22.0 % AV Closure (TANIA) 354 ms LV Basal Anterior Longitudinal Strain (TANIA) -21.9 % LV Basal Anteroseptal Longitudinal Strain (TANIA) -21.4 % LV Basal Inferior Longitudinal Strain (TANIA) -20.6 % LV Basal Anterolateral Longitudinal Strain (TANIA) -17.2 % LV Basal Inferolateral Longitudinal Strain (TANIA) -21.4 % LV Basal Inferoseptal Longitudinal Strain (TANIA) -17.8 % LV Global Longitudinal Strain (2C TANIA) -21.6 % LV Global Longitudinal Strain (4C TANIA) -19.3 % LV Global Longitudinal Strain (APLAX TANIA) -22.5 % LV Global Longitudinal Strain (TANIA) -21.2 % LV Mid Anterior Longitudinal Strain (TANIA) -13.8 % LV Mid Anteroseptal Longitudinal Strain (TANIA) -22.6 % LV Mid Inferior Longitudinal Strain (TANIA) -25.3 % LV Mid Anterolateral Longitudinal Strain (TANIA) -21.3 % LV Mid Inferolateral Longitudinal Strain (TANIA) -21.0 % LV Mid Inferoseptal Longitudinal Strain (TANIA) -23.5 % Report Signatures
--- OUTSIDE RECORDS SUMMARY | 2025-04-23 10:03 | XMS_ITS | Clinical Summary ---
Author Organization [facility] [address] [facility] Address [address] [place] [address] Care Team Providers Care Blister Rust Eradicator Name Role Phone Kyle Rodriguez Primary Care Provider [phone] Lloyd Carrasco MD Unavailable [phone] Allergies No known active allergies Medications methylPREDNISolo [...] 30 minutes. 4 tablet 11 4 Active Active Problems Problem Noted Date Diagnosed Date [...] diet. Assessment & Plan (09/18/2021 2:30 PM COLOR CORRECTOR): Chronic Work on diet and exercise. Repeat lipid panel in 6 mo. ANA (generalized anxiety disorder) 11/13/2019 Assessment & Plan (08/31/2024 11:07 PM CDT): Chronic Stable Continue xanax prn Assessment & Plan (11/14/2021 2:57 PM COLOR CORRECTOR): Chronic Stable Continue xanax prn Assessment & Plan (01/27/2021 10:36 AM CDT): Chronic condition improved with use of buspirone. Continue with current regimen including BuSpar and Viibryd. Assessment & Plan (12/09/2020 9:09 AM COLOR CORRECTOR): Refill xanax with #15 Start buspar 7.5mg bid for 1 week then increase 2tablets bid, Second script at 15mg bid Assessment & Plan (12/25/2019 10:09 AM COLOR CORRECTOR): Start buspar 7.5mg bid She has not taken any xanax in the past 4 weeks. Assessment & Plan (11/13/2019 10:47 AM COLOR CORRECTOR): Xanax 0.5mg every day prn #5 Flexural eczema 11/13/2019 Assessment & Plan (11/14/2021 2:52 PM COLOR CORRECTOR): Chronic condition with current exerbation Start betamethasone lotion Assessment & Plan (11/13/2019 10:47 AM COLOR CORRECTOR): Start betamethasone diproprionate oint Abnormal mammogram of left breast 01/16/2019 Age-related cataract of both eyes 09/12/2018 Grief at loss of child 09/12/2018 Assessment & Plan (12/25/2019 10:09 AM COLOR CORRECTOR): Refer to glenroy herrera counseling Assessment & Plan (11/13/2019 10:47 AM COLOR CORRECTOR): Start viibryd starter stephanie and copay card Encounters Date Type Department Care Team Description 03/31/2025 Telephone [facility] Family Medicine at [address] [place] [address] Kyle Rodriguez PA Urine Culture not picked up from lock box 03/25/2025 Results Follow-Up [facility] Family Medicine at [address] [place] [address] Kyle Rodriguez PA Diagnostic Mammogram Right W Shivam 03/25/2025 Orders Only [facility] Family Medicine at [address] [place] [address] Kyle Rodriguez PA 03/25/2025 Orders Only [facility] Family Medicine at [address] [place] [address] Kyle Rodriguez PA Mass of lower outer quadrant of right breast 03/17/2025 Telephone [facility] Family Medicine at [address] [place] [address] Kyle Rodriguez PA Additional Services Or Orders 03/08/2025 8:00 AM CDT Office Visit [facility] Family Medicine at [address] [place] [address] Kyle Rodriguez PA Medicare annual wellness visit, [...] on file Legal Sex Female 10:10 PM COLOR CORRECTOR Gender Identity Female 04/26/2022 10:45 AM CDT [...] 7:59 AM CDT Height 165.1 cm (5' 5) 03/08/2025 7:59 AM CDT Body Mass Index [...] history exists Colon Cancer Screening-DNA Stool 04/21/2026 04/21/20, 03/19/2020 Osteoporosis Screening-Bone Density Scan 08/26/2026 08/26/2024, 03/23/2022 Hepatitis C Screening Completed 08/31/2021 Colon Cancer Screening-FIT Discontinued 04/21/2023, Procedures Procedure Name Priority Date/Time Associated Diagnosis Comments US BREAST RIGHT LIMITED Schedule Routine, Read Routine (OP Routine) 03/24/2025 Mass of lower outer quadrant of right breast DIAGNOSTIC MAMMOGRAM RIGHT W SHIVAM Schedule Routine, Read Routine (OP Routine) 03/24/2025 Mass of lower outer quadrant of right breast LIPID PANEL Routine 03/23/2025 12:41 PM CDT Medicare annual wellness visit, subsequent Pure hypercholesterolemia COMPREHENSIVE METABOLIC PANEL Routine 03/23/2025 12:41 PM CDT Medicare annual wellness visit, subsequent Pure hypercholesterolemia CBC WITH AUTO DIFFERENTIAL Routine 03/23/2025 12:41 PM CDT Medicare annual wellness visit, subsequent Pure hypercholesterolemia URINE CULTURE Routine 03/23/2025 12:41 PM CDT POCT URINALYSIS DIPSTICK Routine 03/08/2025 9:13 AM [...] Recently Relevant to Health Maintenance Results * Diagnostic Mammogram Right W Shivam (03/24/2025) Anatomical Region Laterality Modality Breast Right Mammography us Kyle KAT IMG MAMMO PROCEDURES Final Resu lt * US Breast Right Limited (03/24/2025) Anatomical Region Laterality Modality Breast Right Mammography Impressions 03/24/2025 See diagnostic mammogram results us Kyle KAT IMG MAMMO PROCEDURES Final Resu lt * CBC with auto differential (03/23/2025 12:41 PM CDT) WBC 8.5 3.4 - 10.8 x10E3/uL [facility] [...] CDT 03/23/2025 Comment:UC Narrative [facility] - 03/24/2025 5:08 AM CDT Performed at: [facility] [address] [id number] Bobbin Loose End Finder: Albert Shore PhD, Phone: [phone] us Kyle KAT LAB BLOOD ORDERABLES Final Resu lt [facility] - 01 * Urine culture (03/23/2025 12:41 PM CDT) Urine culture Final report [facility] - 01 Result 1 Comment [facility] - 01 Comment: Mixed urogenital krissy 10,000-25,000 colony forming units per mL 03/23/2025 12:4 1 PM CDT 03/23/2025 Comment:KAUSHAL Quijano [facility] - 03/25/2025 4:07 AM CDT Performed at: [address] [id number] Bobbin Loose End Finder: Albert Shore PhD, Phone: [phone] Kyle KAT LAB MICROBIOLOGY - GENERAL ORDE RABLES Final Result Performing Organization Address [facility] de Phone Number [facility] * (ABNORMAL) Lipid panel (03/23/2025 12:41 PM [...] - 03/24/2025 8:11 AM CDT Performed at: [address] [id number] Bobbin Loose End Finder: Albert Shore PhD, Phone: [phone] Kyle KAT LAB BLOOD ORDERABLES Final Resu lt Performing Organization Address [facility] de Phone Number [facility] - * [...] 8:11 AM CDT Performed at: 01 - [facility] [place] [id number] Bobbin Loose End Finder: Albert Shore PhD, Phone: [phone] us Kyle KAT LAB BLOOD ORDERABLES Final Resu lt [facility] - 01 * (ABNORMAL) POCT urinalysis dipstick (03/08/2025 9:13 AM CDT) Color, Urine, POC Dark Yellow Clarity, ur, POC Clear Clear Glucose, ur, POC Negative Negative MG/DL Bilirubin, ur, POC Small Negative, Small, Moderate, Large Ketones, ur, POC Trace(A) Negative Specific [place], POC 1.030 1.003 - 1.030 Blood, ur, POC Small(A) Negative pH, ur, POC 5.5 5.0 - 8.0 Protein, ur, POC 30.(A) Negative Urobilinogen, urine, POC 0.2 0.2 - 1.0 mg/dL Nitrite, ur, POC Negative Negative Leukocytes, ur, POC Trace(A) Negative Lot Number [id number] Urine 03/08/2025 9:13 AM CDT Kyle KAT [...] Patient has taken/is taking vitamin-D and calcium. Buffet Server/Model: TripleLift A (S/N [id number]) CLINICAL INFORMATION: Current height: 64 inches Maximum [...] Bonnie Travis M.D. TW: TW Report ID: [id number] Reading Location: [id number] Procedure Note Bonnie Travis MD - 08/26/2024 EXAM DESCRIPTION: DEXA AXIAL SKELETON BONE DENSITY 1 OR MORE SITES REASON FOR STUDY: 69 y/o year old F with given history of: Post menopausal status. Patient has taken/is taking vitamin-D and calcium. Buffet Server/Model: Hologic Horizon A (S/N [id number]) CLINICAL INFORMATION: Current height: 64 inches Maximum [...] Bonnie Travis M.D. TW: FLORI Report ID: [id number] Reading Location: [id number] Kyle KAT IMHannah DXA PROCEDURES Final Result * Screening Mammogram [...] age 40, based on guidelines of the [place] [employer] (ACR Practice Parameter for the Performance of Screening and Diagnostic Mammography) and [place] [employer]. For women [...] CDT) Stool DNA - Cologuard Negative Negative [facility] (CLIA #:[id number]) Comment: NEGATIVE TEST RESULT. A negative Cologuard [...] screened with both Cologuard and colonoscopy. (Esteban Whitehead, N Engl J Med 2014;370(14):6013-4610) The normal value (reference range) for this assay is negative. COLOGUARD RE-SCREENING RECOMMENDATION: Periodic colorectal cancer screening is an important part of preventive healthcare for asymptomatic individuals at average risk for colorectal cancer. Following a negative Cologuard result, the [place] Cancer Society and U.S. Multi-Society Task Force screening guidelines recommend a Cologuard re-screening interval of 3 years. References: [place] [employer] Guideline for Colorectal Cancer Screening: https://www.cancer.org/cancer/radnd-muruwj-uavzcq/swytyfykg-pnjmnpxwh-sycspna/ac s-rec ommendations.html.; Jake DK, Cece CR, Jayde NavasK, Colorectal Cancer Screening: Recommendations for Physicians and Patients from the U.S. Multi-Society Task Force on Colorectal Cancer Screening , Am J Gastroenterology 2017; 112:8611-7066. TEST DESCRIPTION: Composite algorithmic analysis of stool [...] were screened with both Cologuard and colonoscopy. (Imperiale T. et al, N Engl J Med 2014;370(14):1107-0864.) Cologuard may produce a false negative or false positive result (no colorectal cancer or precancerous polyp present at colonoscopy follow up). A negative Cologuard test result does not guarantee the absence of CRC or advanced adenoma (pre-cancer). The current Cologuard screening interval is every 3 years. ([place] Cancer Society and U.S. Multi-Society Task Force). Cologuard performance data in a 10,000 patient pivotal study using colonoscopy as the reference method can be accessed at the following location: www.NavSemi Energy.GenQual Corporation/results. Additional description of the Cologuard test process, warnings and precautions can be found at www.cologuard.com. Stool 04/21/2023 6:30 AM CDT 04/23/2023 5:11 PM CDT Kyle KAT LAB BODY FLUIDS AND STOOLS EMORY GILBERT Final Result Performing Organization Address [facility] de Phone Number [facility] (CLIA #:[id number]) [address] [place] [address] * Hepatitis C antibody (08/31/2021 9:45 AM CDT) Pathologist [facility] Hep C Ab <0.1 0.0 - 0.9 s/co ratio [facility] - 01 Comment: Negative: < 0.8 Indeterminate: 0.8 - 0.9 Positive: > 0.9 The CDC recommends that a positive HCV antibody result be followed up with a HCV Nucleic Acid Amplification test (156150). Blood specimen (specimen) 08/31/2021 9:45 AM CDT 08/31/2021 Narrative [facility] - 09/01/2021 5:07 AM CDT Performed at: [facility] [id number] Bobbin Loose End Finder: Albert Shore PhD, Phone: [phone] Kyle KAT LAB MICROBIOLOGY - GENERAL EMORY GILBERT Final Result [facility] - 01 from Last 3 Months or Most Recently Relevant to Health Maintenance Insurance MEDICARE AETNA SENIOR SUPPLEMENT Care Teams Blister Rust Eradicator Relationship Specialty Start Date End Date Kyle Rodriguez PA [address] [facility] [place] [address] PCP - General Family Medicine 08/08/22 Lloyd Carrasco MD [address] [place] [address] [place] [address] Dermatology 02/24/24
--- OUTSIDE RECORDS SUMMARY | 2025-04-23 10:03 | XMS_ITS | Encounter Summary ---
Author Organization [facility] Address [address] [place] [address] Care Team Providers Care Carpentry Specialist Name Role Phone Kyle Rodriguez Primary Care Provider [phone] Lloyd Carrasco MD Unavailable [phone] Encounter Details Date Type Department Care Team (Late st Contact Info) Description 03/25/2025 Results Follow-Up [facility] Family Medicine at [address] [place] [address] Kyle Rodriguez PA [address] [place] [address] Diagnostic Mammogram Right W Shivam Social History Tobacco Use Types Packs/Day Years Used Date Smoking Tobacco: Former Cigarettes Q uit: 02/20/2019 Smokeless Tobacco: Never Alcohol Use Standard Drinks/Week Comments Yes 1 [...] on file Legal 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
--- OUTSIDE RECORDS SUMMARY | 2025-04-23 10:03 | XMS_ITS | Referral Summary ---
Author Organization [facility] [address] [facility] Address [address] [place] [address] Care Team Providers Care Contour Stitcher Name Role Phone Kyle Rodriguez Primary Care Provider [phone] Lloyd Carrasco MD Unavailable [phone] Encounters Date Type Department Care Team Description 03/31/2025 Telephone [facility] Family Medicine at [address] [place] [address] Kyle Rodriguez PA Urine Culture not picked up from lock box 03/25/2025 Results Follow-Up [facility] Family Medicine at [address] [place] [address] Kyle Rodriguez PA Diagnostic Mammogram Right W Shivam 03/25/2025 Orders Only [facility] Family Medicine at [address] [place] [address] Kyle Rodriguez PA 03/25/2025 Orders Only [facility] Medical [facility] Family Medicine at [address] [place] [address] Kyle Rodriguez PA Mass of lower outer quadrant of right breast 03/17/2025 Telephone [facility] Family Medicine at [address] [place] [address] Kyle Rodriguez PA Additional Services Or Orders 03/08/2025 8:00 AM CDT Office Visit [facility] Family Medicine at [address] [place] [address] Kyle Rodriguez PA Medicare annual wellness visit, [...] diet. Assessment & Plan (09/18/2021 2:30 PM WATER LEAK REPAIRER): Chronic Work on diet and exercise. Repeat lipid panel in 6 mo. ANA (generalized anxiety disorder) 11/13/2019 Assessment & Plan (08/31/2024 11:07 PM CDT): Chronic Stable Continue xanax prn Assessment & Plan (11/14/2021 2:57 PM WATER LEAK REPAIRER): Chronic Stable Continue xanax prn Assessment & Plan (01/27/2021 10:36 AM CDT): Chronic condition improved with use of buspirone. Continue with current regimen including BuSpar and Viibryd. Assessment & Plan (12/09/2020 9:09 AM WATER LEAK REPAIRER): Refill xanax with #15 Start buspar 7.5mg bid for 1 week then increase 2tablets bid, Second script at 15mg bid Assessment & Plan (12/25/2019 10:09 AM WATER LEAK REPAIRER): Start buspar 7.5mg bid She has not taken any xanax in the past 4 weeks. Assessment & Plan (11/13/2019 10:47 AM WATER LEAK REPAIRER): Xanax 0.5mg every day prn #5 Flexural eczema 11/13/2019 Assessment & Plan (11/14/2021 2:52 PM WATER LEAK REPAIRER): Chronic condition with current exerbation Start betamethasone lotion Assessment & Plan (11/13/2019 10:47 AM WATER LEAK REPAIRER): Start betamethasone diproprionate oint Abnormal mammogram of left breast 01/16/2019 Age-related cataract of both eyes 09/12/2018 Grief at loss of child 09/12/2018 Assessment & Plan (12/25/2019 10:09 AM WATER LEAK REPAIRER): Refer to glenroy herrera counseling Assessment & Plan (11/13/2019 10:47 AM WATER LEAK REPAIRER): Start viibryd starter stephanie and copay card [...] on file Legal Sex Female 10:10 PM WATER LEAK REPAIRER Gender Identity Female 04/26/2022 10:45 AM CDT [...] - 03/24/2025 5:08 AM CDT Performed at: [facility] [id number] Rocket Motor Tester: Albert Shore PhD, Phone: [phone] us Kyle KAT LAB BLOOD ORDERABLES Final Resu lt [facility] - * Urine culture (03/23/2025 12:41 PM CDT) Urine culture Final report [facility] - Result 1 Comment [facility] - Comment: Mixed urogenital krissy 10,000-25,000 colony forming units per mL 03/23/2025 12:4 1 PM CDT 03/23/2025 Comment:KAUSHAL Quijano [facility] - 03/25/2025 4:07 AM CDT Performed at: [facility] [id number] Rocket Motor Tester: Albert Shore PhD, Phone: [phone] us Kyle KAT LAB MICROBIOLOGY - GENERAL ORDE RABLES Final Result Performing Organization Address [facility] Co de Phone Number [facility] - [...] - 03/24/2025 8:11 AM CDT Performed at: [facility] [id number] Rocket Motor Tester: Albert Shore PhD, Phone: [phone] Kyle KAT LAB BLOOD ORDERABLES Final Resu lt Performing Organization Address [facility]/ZIP Co de Phone Number [facility] - [...] 8:11 AM CDT Performed at: 01 - [address] [id number] Rocket Motor Tester: Albert Shore PhD, Phone: [phone] us Kyle KAT LAB BLOOD ORDERABLES Final Resu lt [facility] - 01 * (ABNORMAL) POCT urinalysis dipstick (03/08/2025 9:13 AM CDT) [facility] Signature Color, Urine, POC Dark Yellow Clarity, ur, POC Clear Clear Glucose, ur, POC Negative Negative MG/DL Bilirubin, ur, POC Small Negative, Small, Moderate, Large Ketones, ur, POC Trace(A) Negative Specific [place], POC 1.030 1.003 - 1.030 Blood, ur, POC Small(A) Negative pH, ur, POC 5.5 5.0 - 8.0 Protein, ur, POC 30.(A) Negative Urobilinogen, urine, POC 0.2 0.2 - 1.0 mg/dL Nitrite, ur, POC Negative Negative Leukocytes, ur, POC Trace(A) Negative Lot Number [id number] Urine 03/08/2025 9:13 AM CDT Kyle KAT [...] Patient has taken/is taking vitamin-D and calcium. Business Analytics Intern/Model: Parametric Sound A (S/N [id number]) CLINICAL INFORMATION: Current height: 64 inches Maximum [...] Bonnie Travis M.D. TW: TW Report ID: [id number] Reading Location: [id number] Procedure Note Bonnie Travis MD - 08/26/2024 EXAM DESCRIPTION: DEXA AXIAL SKELETON BONE DENSITY 1 OR MORE SITES REASON FOR STUDY: 69 y/o year old F with given history of: Post menopausal status. Patient has taken/is taking vitamin-D and calcium. Business Analytics Intern/Model: [employer] Horizon A (S/N [id number]) CLINICAL INFORMATION: Current height: 64 inches Maximum [...] see below follow up recommendations. [facility] causes of low bone mineral density may [...] Bonnie Travis M.D. TW: TW Report ID: [id number] Reading Location: [id number] Kyle KAT IMHannah DXA PROCEDURES Final Result [...] age 40, based on guidelines of the [place] [employer] (ACR Practice Parameter for the Performance of Screening and Diagnostic Mammography) and [place] [employer]stetricians and Gynecologists. For women [...] breast within the limitations of this exam. Kyle KAT IMG MAMMO PROCEDURES Final Resu lt * Stool DNA - Cologuard (04/21/2023 6:30 AM CDT) Stool DNA - Cologuard Negative Negative [facility] [employer] (CLIA #:[id number]) Comment: NEGATIVE TEST RESULT. A negative Cologuard [...] (Esteban Velez al, N Engl J Med 2014;370(14):4949-5870) The normal value (reference range) for this assay is negative. COLOGUARD RE-SCREENING RECOMMENDATION: Periodic colorectal cancer screening is an important part of preventive healthcare for asymptomatic individuals at average risk for colorectal cancer. Following a negative Cologuard result, the [place] Cancer Society and U.S. Multi-Society Task Force screening guidelines recommend a Cologuard re-screening interval of 3 years. References: [place] [employer] Guideline for Colorectal Cancer Screening: https://www.cancer.org/cancer/iekus-ytfftq-ljavce/ohnqhufyr-qpmyyaytg-abyulqz/ac s-rec ommendations.html.; Jake DK, Cece WATKINS, Jayde NavasK, Colorectal Cancer Screening: Recommendations for Physicians and Patients from the U.S. Multi-Society Task Force on Colorectal Cancer Screening , Am J Gastroenterology 2017; 112:0579-2408. TEST DESCRIPTION: Composite algorithmic analysis of stool [...] (Esteban Velez al, N Engl J Med 2014;370(14):9762-8382.) Cologuard may produce a false negative or false positive result (no colorectal cancer or precancerous polyp present at colonoscopy follow up). A negative Cologuard test result does not guarantee the absence of CRC or advanced adenoma (pre-cancer). The current Cologuard screening interval is every 3 years. ([place] [employer] Society and U.S. Multi-Society Task Force). Cologuard performance data in a 10,000 patient pivotal study using colonoscopy as the reference method can be accessed at the following location: www.Sykio.NewGoTos/results. Additional description of the Cologuard test process, warnings and precautions can be found at www.Servis1st Bankoguard.NewGoTos. Stool 04/21/2023 6:30 AM CDT 04/23/2023 5:11 PM CDT Kyle KAT LAB BODY FLUIDS AND STOOLS EMORY GILBERT Final Result [facility] (CLIA #:[id number]) [address] [place] [address] * Hepatitis C antibody (08/31/2021 9:45 AM CDT) [facility] Hep C Ab <0.1 0.0 - 0.9 s/co ratio [facility] - 01 Comment: Negative: < 0.8 Indeterminate: 0.8 - 0.9 Positive: > 0.9 The CDC recommends that a positive HCV antibody result be followed up with a HCV Nucleic Acid Amplification test (686158). Blood specimen (specimen) 08/31/2021 9:45 AM CDT 08/31/2021 Narrative [facility] - 09/01/2021 5:07 AM CDT Performed at: [facility] [id number] Rocket Motor Tester: Albert Shore PhD, Phone: [phone] Kyle KAT LAB MICROBIOLOGY - GENERAL EMORY GILBERT Final Result [facility] - 01 from Last 3 Months or Most Recently Relevant to Health Maintenance Insurance MEDICARE AETNA SENIOR SUPPLEMENT Care Teams Contour Stitcher Relationship Specialty Start Date End Date Kyle Rodriguez PA [address] [place] [address] PCP - General Family Medicine 08/08/22 Lloyd Carrasco MD [address] [place] [address] [place] [address] Dermatology 02/24/24
--- OUTSIDE RECORDS SUMMARY | 2025-04-23 10:03 | XMS_ITS | Encounter Summary ---
Author Organization [facility] Care Team Providers Care Complaint Supervisor Name Role Phone Leonard Morales MD Primary Care Provider [phone] Kyle Rodriguez Primary Care Provider [phone] Lloyd Carrasco MD Unavailable [phone] Encounter Details Date Type Department Care Team (Latest Contact Info) Description 01/14/2019 Orders Only [facility] Provider, MD Dominga [address] [place], [place] [id number] Social History Tobacco Use Types Packs/Day Years Used Date Smoking Tobacco: Never Assessed Comments Unknown Sex and Gender Information Value Date Recorded Sex Assigned at Not on file 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 Historical Provider Final Res ult * SCAN - LABS (01/15/2019 12:00 AM SNOWSPORT INSTRUCTOR) Narrative 01/15/2019 12:00 AM SNOWSPORT INSTRUCTOR Ordered by an unspecified provider. us Historical Provider Final Res ult documented in this encounter Visit Diagnoses Not on filedocumented in this encounter Care Teams Complaint Supervisor Relationship Specialty Start Date End Date Leonard Morales MD PCP - General Family Medicine 01/31/19 08/07/22 Kyle Rodriguez PA [address] [facility] [place] [address] PCP - General Family Medicine 08/08/22 Lloyd Carrasco MD [address] [place] [address] [place] [address] Dermatology 02/24/24 documented as of this encounter
--- OUTSIDE RECORDS SUMMARY | 2025-04-23 10:03 | XMS_ITS | Clinical Summary ---
Author Organization [facility] Kelvin meneses [facility] Address [address] [place] [address] Care Team Providers Care Tank Officer Name Role Phone Unavailable Primary Care Provider Unavailabl e Social History Tobacco Use Types Packs/Day Years Used Date Smoking Tobacco: Never Assessed Comments Unknown Sex and Gender Information Value Date Recorded Sex Assigned at Not on file Legal Sex Female 8:44 AM CDT Gender Identity Not on file Sexual Orientation Not on file Plan of Treatment Upcoming Encounters Date Type Department Care Team (Late st Contact Info) Description 05/06/2025 4:00 PM CDT Office Visit [facility] Oncology and Hematology - [place] [address] [address] Deandre Duff MD [address] [facility] [address] [place] [address] Health Maintenance Due Date Last Done Comments DTAP/TDAP/TD VACCINES (1 - Tdap) 1975 BREAST CANCER SCREENING 1996 COLORECTAL SCREENING 2001 Colorectal Cancer Screening 2001 FIT-DNA Q 3 years 2001 FIT/FOBT Q 1 year 2001 Flex Sig/CT Colonography Q 5 years 2001 PNEUMOCOCCAL VACCINE 50+ YEARS (1 of 1 - PCV) 04/02/20 06 ZOSTER VACCINE (1 of 2) 2006 OSTEOPOROSIS SCREENING 2021 INFLUENZA VACCINE (#1) 2024 RSV VACCINE (60+ or ) (1 - 1-dose 75+ series) 2031 Insurance MEDICARE PART A AND B T MEDICARE SUPP AESSI
--- OUTSIDE RECORDS SUMMARY | 2025-04-23 10:03 | XMS_ITS | Continuity of Care Document ---
Author Organization [facility] Address [address] [place] [address] [address] [place] [address] Phone Care Team Providers Care Display Fabrication Supervisor Name Role Phone Quintin Calvo MD Unavailable Unavailable Procedures Procedure Date CATARACT SURG W/IOL, 1 STAGE CATARACT SURG W/IOL, 1 STAGE OFFICE/OUTPATIENT VISIT, [facility] OPHTHALMIC BIOMETRY OPHTHALMIC BIOMETRY Advance Directives Directive Yes / No Effective Date File Name No Information Encounters Encounter Description Practice Location Reason(s) For Visit Diagnoses Date Provider Providers Copied on Encounter Ophthalmology [facility], [address] [place] [address], [place], [place], [address] [place] [address], tel:[phone] [facility] [place] No Information 8 Lubna Ribeiro. [address] [facility], [address], [place], [place], [id number], . tel:[phone] Referring Provider: Quintin Perez, [address] [place] [address] [address], [place], [address]. tel:[phone] Ophthalmology [facility], [address] [place] [address] [address], [place], [id number], tel:[phone] [facility] [place] No Information 8 Lubna Ribeiro. [address] [place] [address], [facility] [address], [id number], . tel:[phone] Referring Provider: Quintin Perez, [address] [place] [address] [address], [place], [address]. tel:[phone] OFFICE/OUTPAT IENT VISIT, NEW [facility], [address] [facility] [address], [place], [place], [id number], [place] tel:[phone] [facility] [place] No Information 8 Lubna Ribeiro. [address] [facility], [address], [place], [place], [id number], [place]. tel:[phone] Referring Provider: Quintin Perez, [address] [facility] [address], [place], [address]. tel:[phone] Family History Family Member Type Diagnosis Age [...]
== END 2025-04-23 09:54 | disposition home or self-care (01) ==
PROVIDERS: PCP Physician Assistant Medical; Visit Provider Surgery
DX: C50.911 Malignant neoplasm of unspecified site of right female breast (principal); C77.3 Secondary and unspecified malignant neoplasm of axilla and upper limb lymph nodes; Z51.11 Encounter for antineoplastic chemotherapy
CPT/HCPCS: 93306

== ENCOUNTER 2025-04-23 09:59 | Outpatient (CLI) | payer MEDICARE, SELFPAY ==
--- OUTSIDE RECORDS SUMMARY | 2025-04-23 10:09 | XMS_ITS | Continuity of Care Document ---
Author Organization [facility] Address [address] [place] [address] [address] [place] [address] Phone Care Team Providers Care Front Desk Auxiliary Name Role Phone Quintin Calvo MD Unavailable Unavailable Procedures Procedure Date CATARACT SURG W/IOL, 1 STAGE CATARACT SURG W/IOL, 1 STAGE OFFICE/OUTPATIENT VISIT, [facility] OPHTHALMIC BIOMETRY OPHTHALMIC BIOMETRY Advance Directives Directive Yes / No Effective Date File Name No Information Encounters Encounter Description Practice Location Reason(s) For Visit Diagnoses Date Provider Providers Copied on Encounter Ophthalmology [facility], [address] [place] [address], [place], [place], [address] [place] [address], tel:[phone] [facility] [place] No Information 8 Lubna Ribeiro. [address] [facility], [address], [place], [place], [id number], . tel:[phone] Referring Provider: Quintin Perez, [address] [place] [address] [address], [place], [address]. tel:[phone] Ophthalmology [facility], [address] [place] [address] [address], [place], [id number], tel:[phone] [facility] [place] No Information 8 Lubna Ribeiro. [address] [place] [address], [facility] [address], [place], [id number], . tel:[phone] Referring Provider: Quintin Perez, [address] [place] [address] [address], [place], [address]. tel:[phone] OFFICE/OUTPAT IENT VISIT, NEW [facility], [address], [place], [place], [id number], [place] tel:[phone] [facility] [place] No Information 8 Lubna Ribeiro. [address] [facility], [address], [place], [place], [address], [place]. tel:[phone] Referring Provider: Quintin Perez, [address] [facility] [address], [place], [address]. tel:[phone] Family History Family Member Type Diagnosis Age At Onset No Information Payers Payer name Insurance type Covered constitution party ID Authoriza tion(s) No Information Social [...]
[2025-04-23 10:24] LABS: Basophils Absolute Auto 0.1 K/mm3 (0.0-0.1); Basophils Percent Auto 1.2 % (0.2-1.2); Eosinophils Absolute Auto 0.2 K/mm3 (0-0.3); Eosinophils Percent Auto 2.1 % (0-4.4); Hematocrit 45.9 % (37.0-47.0); Hemoglobin 15.3 g/dL (12.0-15.0); Immature Granulocyte Absolute 0.02 K/mm3 (0.00-0.031); Immature Granulocyte Percent A 0.3 % (0-0.5); Lymphocytes Absolute Auto 1.74 K/mm3 (0.9-3.2); Lymphocytes Percent Auto 22.4 % (18.3-44.2); Mean Corpuscular HGB Conc 33.3 g/dl (32-36); Mean Corpuscular Hemoglobin 31.3 pg (26-34); Mean Corpuscular Volume 93.9 fl (80-100); Mean Platelet Volume 10.2 fl (7.4-10.4); Monocytes Absolute Auto 0.6 K/mm3 (0.1-0.6); Monocytes Percent Auto 7.6 % (2.6-8.5); Neutrophils Absolute Auto 5.2 K/mm3 (1.3-6.7); Neutrophils Percent Auto 66.4 % (45.5-73.1); Platelet Count Result 229 k/mm3 (150-375); Red Blood Count 4.89 M/mm3 (4.2-5.4); Red Cell Distribution Width 12.5 % (11.5-14.5); White Blood Count 7.8 K/mm3 (4.5-10.0)
[2025-04-23 10:35] LABS: INR 0.9; Prothrombin Time 12.6 Seconds (11.1-14.7)
[2025-04-23 10:36] LABS: Partial Thromboplastin Time 31.7 Seconds (22.3-36.8)
== END 2025-04-23 10:00 | disposition home or self-care (01) ==
LOC: ANHSURGERY 10:02 → ANHLAB 10:05 → ANHSURGERY 10:13
PROVIDERS: Anesthesiology; PCP Physician Assistant Medical; Visit Provider Surgery
DX: C50.911 Malignant neoplasm of unspecified site of right female breast (principal)
CPT/HCPCS: 36415; 85025; 85610; 85730

== ENCOUNTER 2025-04-27 08:57 | Outpatient (CLI) | payer MEDICARE, SELFPAY ==
--- NOTE | ~2025-04-27 | PE_ITS ---
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 Right-s ided breast cancer. TECHNIQUE: Blood glucose level was 94 mg/dL. 10.508 mCi of 18-fluorodeoxyglucose (18-FDG) was adminis tered i.v. Low dose computed tomography (CT) images were acquired from the base of the brain to the p roximal thighs for attenuation correction and anatomic localization. Positron emission tomography (PE T) images were acquired in the same distribution beginning 53 minutes after injection. Images includi ng fused PET/CT images were reconstructed in axial, coronal, and sagittal planes. Automated exposure control technique was employed. The dose-length product was 484.81mGy-cm. COMPARISON: None FINDINGS: Head/neck: There is symmetric increased activity in the oral cavity and ocular muscles without CT correlate, lik francesca physiologic. A few subcentimeter bilateral thyroid nodules without abnormal FDG activity. There a re few normal-sized but mildly FDG avid inferior right jugular chain and right supraclavicular lymph nodes with maximal SUV values of 5.3 and 4.9 respectively, nonetheless suspicious for metastatic dise ase. Chest: Asymmetric severe left upper lobe emphysema with very large left apical bulla. Mild bibasilar discoid atelectasis. No suspicious pulmonary nodules, pneumonia, pulmonary edema or pleural effusion. Mild c ardiomegaly. No pericardial effusion. Thoracic aorta is normal in caliber. No pathologically enlarged or FDG avid lymphadenopathy at the mediastinum, bilateral nelli and left side of the chest. There are multiple normal-sized but FDG avid right subpectoral lymph nodes and enlarged and FDG avid right axi llary lymph nodes consistent with metastatic disease. For reference the largest right axillary lymph node measures 2.5 x 2.1 cm with maximal SUV of 20.7. There is also increased FDG uptake such with asy mmetric soft tissue densities at the right breast underlying and extending laterally from the right n ipple with maximal SUV values of 9.5 consistent with primary breast cancer. Abdomen/pelvis/proximal thighs: Physiologic renal accumulation and excretion of FDG activity in the kidneys, bladder and along portio ns of ureters. Cholecystectomy clips at the gallbladder fossa. Normal degree and heterogenous pattern of increased uptake throughout the liver without radiologic correlate or dominant FDG avid lesion. T he pancreas, spleen and bilateral adrenal glands are normal. Mild uptake scattered throughout the bow els without radiologic correlate, also likely physiologic. Normal appendix. Uterus and bilateral adne xa are unremarkable. No other abnormal foci of increased FDG uptake or pathologically enlarged lympha denopathy in the abdomen, pelvis or proximal thighs. Musculoskeletal: There is approximately 35 degree upper thoracic levoscoliosis with moderate spondylosis. No suspiciou s lytic, blastic or abnormally FDG avid bone lesions to suggest osseous metastatic disease. IMPRESSION: 1. FDG avid asymmetric soft tissue densities at the right breast consistent with primary breast cance r. 2. Multiple enlarged and prominently FDG avid right axillary lymph nodes with additional normal-sized but FDG avid lymph nodes in the right subpectoral, supraclavicular and inferior right jugular region consistent with metastatic disease. Reviewed, dictated and finalized at location A. IMPRESSION: 1. FDG avid asymmetric soft tissue densities at the right breast consistent wit h primary breast cancer. 2. Multiple enlarged and prominently FDG avid right axillary lymph nodes with a dditional normal-sized but FDG avid lymph nodes in the right subpectoral, supra clavicular and inferior right jugular region consistent with metastatic disease .
--- OUTSIDE RECORDS SUMMARY | 2025-04-27 09:27 | XMS_ITS | Encounter Summary ---
Author Organization [facility] Address [address] [place] [address] Care Team Providers Care Chain Mortiser Operator Name Role Phone Kyle Rodriguez Primary Care Provider [phone] Lloyd Carrasco MD Unavailable [phone] Encounter Details Date Type Department Care Team (Late st Contact Info) Description 03/25/2025 Results Follow-Up [facility] Family Medicine at [address] [place] [address] Kyle Rodriguez PA [address] [place] [address] Diagnostic Mammogram Right W Shivam Social [...] on file Legal Sex Female 10:10 PM STOCK CONTROLLER Gender Identity Female 04/26/2022 10:45 AM CDT Sexual Orientation Straight 04/26/2022 10 :45 AM CDT documented as of this encounter Plan of Treatment Not on file documented as of this encounter Visit Diagnoses Not on filedocumented in this encounter Care Teams Chain Mortiser Operator Relationship Specialty Start Date End Date Kyle Rodriguez PA [address] [facility] [place] [address] PCP - General Family Medicine 08/08/22 Lloyd Carrasco MD [address] [place] [address] Dermatology 02/24/24 documented as of this encounter
--- OUTSIDE RECORDS SUMMARY | 2025-04-27 09:27 | XMS_ITS | Clinical Summary ---
Author Organization [facility] [facility] Address [address] [place] [address] Care Team Providers Care Gas Engineer Name Role Phone Kyle Rodriguez Primary Care Provider [phone] Lloyd Carrasco MD Unavailable [phone] Allergies No known active allergies Medications methylPREDNISolo [...] diet. Assessment & Plan (09/18/2021 2:30 PM EDGE KITTER): Chronic Work on diet and exercise. Repeat lipid panel in 6 mo. ANA (generalized anxiety disorder) 11/13/2019 Assessment & Plan (08/31/2024 11:07 PM CDT): Chronic Stable Continue xanax prn Assessment & Plan (11/14/2021 2:57 PM EDGE KITTER): Chronic Stable Continue xanax prn Assessment & Plan (01/27/2021 10:36 AM CDT): Chronic condition improved with use of buspirone. Continue with current regimen including BuSpar and Viibryd. Assessment & Plan (12/09/2020 9:09 AM EDGE KITTER): Refill xanax with #15 Start buspar 7.5mg bid for 1 week then increase 2tablets bid, Second script at 15mg bid Assessment & Plan (12/25/2019 10:09 AM EDGE KITTER): Start buspar 7.5mg bid She has not taken any xanax in the past 4 weeks. Assessment & Plan (11/13/2019 10:47 AM EDGE KITTER): Xanax 0.5mg every day prn #5 Flexural eczema 11/13/2019 Assessment & Plan (11/14/2021 2:52 PM EDGE KITTER): Chronic condition with current exerbation Start betamethasone lotion Assessment & Plan (11/13/2019 10:47 AM EDGE KITTER): Start betamethasone diproprionate oint Abnormal mammogram of left breast 01/16/2019 Age-related cataract of both eyes 09/12/2018 Grief at loss of child 09/12/2018 Assessment & Plan (12/25/2019 10:09 AM EDGE KITTER): Refer to [facility] counseling Assessment & Plan (11/13/2019 10:47 AM EDGE KITTER): Start viibryd starter stephanie and copay card Encounters Date Type Department Care Team Description 03/31/2025 Telephone [facility] Family Medicine at [address] [place] [address] Kyle Rodriguez PA Urine Culture not picked up from lock box 03/25/2025 Results Follow-Up [facility] Family Medicine at [address] [place] [address] Kyle Rodriguez PA Diagnostic Mammogram Right W Shivam 03/25/2025 Orders Only [facility] Family Medicine at [address] [place] [address] Kyle Rodriguez PA 03/25/2025 Orders Only [facility] Family Medicine at [address] [place] [address] Kyle Rodriguez PA Mass of lower outer quadrant of right breast 03/17/2025 Telephone [facility] Family Medicine at [address] [place] [address] Kyle Rodriguez PA Additional Services Or Orders 03/08/2025 8:00 AM CDT Office Visit [facility] Family Medicine at [address] [place] [address] Kyle Rodriguez PA Medicare annual wellness visit, [...] on file Legal Sex Female 10:10 PM EDGE KITTER Gender Identity Female 04/26/2022 10:45 AM CDT [...] 03/24/2025 5:08 AM CDT Performed at: [facility] [address] [id number] Community Support Associate: Albert Shore PhD, Phone: [phone] us Kyle KAT LAB BLOOD ORDERABLES Final Resu lt [facility] - 01 * Urine culture (03/23/2025 12:41 PM CDT) Urine culture Final report [facility] - 01 Result 1 Comment [facility] - 01 Comment: Mixed urogenital krissy 10,000-25,000 colony forming units per mL 03/23/2025 12:4 1 PM CDT 03/23/2025 Comment:KAUSHAL Quijano [facility] - 03/25/2025 4:07 AM CDT Performed at: [facility] [id number] Community Support Associate: Albert Shore PhD, Phone: [phone] Kyle KAT LAB MICROBIOLOGY - GENERAL ORDE RABLES Final Result Performing Organization Address [facility] de Phone Number [facility] * (ABNORMAL) [...] - 03/24/2025 8:11 AM CDT Performed at: [facility] [id number] Community Support Associate: Albert Shore PhD, Phone: [phone] Kyle KAT LAB BLOOD ORDERABLES Final Resu lt Performing Organization Address [facility] de Phone Number [facility] - * [...] 8:11 AM CDT Performed at: 01 - [place] [id number] Community Support Associate: Albert Shore PhD, Phone: [phone] us Kyle KAT LAB BLOOD ORDERABLES Final Resu lt [facility] - 01 * (ABNORMAL) POCT urinalysis dipstick (03/08/2025 9:13 AM CDT) Color, Urine, POC Dark Yellow Clarity, ur, POC Clear Clear Glucose, ur, POC Negative Negative MG/DL Bilirubin, ur, POC Small Negative, Small, Moderate, Large Ketones, ur, POC Trace(A) Negative Specific [place], POC 1.030 1.003 - 1.030 Blood, ur, POC Small(A) Negative pH, ur, POC 5.5 5.0 - 8.0 Protein, ur, POC 30.(A) Negative Urobilinogen, urine, POC 0.2 0.2 - 1.0 mg/dL Nitrite, ur, POC Negative Negative Leukocytes, ur, POC Trace(A) Negative Lot Number [id number] Urine 03/08/2025 9:13 AM CDT Kyle KAT [...] Patient has taken/is taking vitamin-D and calcium. Paving Machine Operator/Model: Opsona A (S/N [id number]) CLINICAL INFORMATION: Current height: 64 inches Maximum [...] Bonnie Travis M.D. TW: TW Report ID: [id number] Reading Location: [id number] Procedure Note Bonnie Travis MD - 08/26/2024 EXAM DESCRIPTION: DEXA AXIAL SKELETON BONE DENSITY 1 OR MORE SITES REASON FOR STUDY: 69 y/o year old F with given history of: Post menopausal status. Patient has taken/is taking vitamin-D and calcium. Paving Machine Operator/Model: Hologic Horizon A (S/N [id number]) CLINICAL INFORMATION: Current height: 64 inches Maximum [...] Bonnie Travis M.D. TW: FLORI Report ID: [id number] Reading Location: [id number] Kyle KAT IMHannah DXA PROCEDURES Final Result [...] age 40, based on guidelines of the [place] [employer] (ACR Practice Parameter for the Performance of Screening and Diagnostic Mammography) and [place] [employer]nec[employer]. For women [...] CDT) Stool DNA - Cologuard Negative Negative [facility] (CLIA #:[id number]) Comment: NEGATIVE TEST RESULT. A negative Cologuard [...] colonoscopy. (Esteban Whitehead, N Engl J Med 2014;370(14):3888-9231) The normal value (reference range) for this assay is negative. COLOGUARD RE-SCREENING RECOMMENDATION: Periodic colorectal cancer screening is an important part of preventive healthcare for asymptomatic individuals at average risk for colorectal cancer. Following a negative Cologuard result, the [place] Cancer Society and U.S. Multi-Society Task Force screening guidelines recommend a Cologuard re-screening interval of 3 years. References: [place] [employer] Guideline for Colorectal Cancer Screening: https://www.cancer.org/cancer/duwfh-sueiwi-wzpsba/xtihjyeka-qperedwng-utglfra/ac s-rec ommendations.html.; Jake DK, Cece CR, Jayde NavasK, Colorectal Cancer Screening: Recommendations for Physicians and Patients from the U.S. Multi-Society Task Force on Colorectal Cancer Screening , Am J Gastroenterology 2017; 112:1582-0728. TEST DESCRIPTION: Composite algorithmic analysis of stool [...] T. et al, N Engl J Med 2014;370(14):4547-3503.) Cologuard may produce a false negative or false positive result (no colorectal cancer or precancerous polyp present at colonoscopy follow up). A negative Cologuard test result does not guarantee the absence of CRC or advanced adenoma (pre-cancer). The current Cologuard screening interval is every 3 years. ([place] Cancer Society and U.S. Multi-Society Task Force). Cologuard performance data in a 10,000 patient pivotal study using colonoscopy as the reference method can be accessed at the following location: www.Entrenarme.Dekkun/results. Additional description of the Cologuard test process, warnings and precautions can be found at www.cologuard.com. Stool 04/21/2023 6:30 AM CDT 04/23/2023 5:11 PM CDT Kyle KAT LAB BODY FLUIDS AND STOOLS EMORY GILBERT Final Result Performing Organization Address [facility] de Phone Number [facility] (CLIA #:[id number]) [address] [place] [address] * Hepatitis C antibody (08/31/2021 9:45 AM CDT) Pathologist [facility] Hep C Ab <0.1 0.0 - 0.9 s/co ratio [facility] - 01 Comment: Negative: < 0.8 Indeterminate: 0.8 - 0.9 Positive: > 0.9 The CDC recommends that a positive HCV antibody result be followed up with a HCV Nucleic Acid Amplification test (153105). Blood specimen (specimen) 08/31/2021 9:45 AM CDT 08/31/2021 Narrative [facility] - 09/01/2021 5:07 AM CDT Performed at: [facility] [address] [id number] Community Support Associate: Albert Shore PhD, Phone: [phone] Kyle KAT LAB MICROBIOLOGY - GENERAL EMORY GILBERT Final Result [facility] - 01 from Last 3 Months or Most Recently Relevant to Health Maintenance Insurance MEDICARE AET[employer] SENIOR SUPPLEMENT Care Teams Gas Engineer Relationship Specialty Start Date End Date Kyle Rodriguez PA [address] [place] [address] PCP - General Family Medicine 08/08/22 Lloyd Carrasco MD [address] [place] [address] [place] [address] Dermatology 02/24/24
--- OUTSIDE RECORDS SUMMARY | 2025-04-27 09:27 | XMS_ITS | Encounter Summary ---
Author Organization [facility] Facility Care Team Providers Care Project Scheduler Name Role Phone Leonard Morales MD Primary Care Provider [phone] Kyle Rodriguez Primary Care Provider [phone] Lloyd Carrasco MD Unavailable [phone] Encounter Details Date Type Department Care Team (Latest Contact Info) Description 01/14/2019 Orders Only [facility] Provider, MD Dominga [address] [place], [place] [id number] Social History Tobacco Use Types Packs/Day Years Used Date Smoking Tobacco: Never Assessed Comments Unknown Sex and Gender Information Value Date Recorded Sex Assigned at Not on file Legal Sex Female 10:10 PM PASSENGER LOCOMOTIVE ENGINEER Gender Identity Female 04/26/2022 10:45 AM CDT Sexual Orientation Straight 04/26/2022 10 :45 AM CDT documented as of this encounter Plan of Treatment Not on file documented as of this encounter Procedures Procedure Name Priority Date/Time Associated Diagnosis Comments SCAN - LABS 01/15/2019 12:00 AM PASSENGER LOCOMOTIVE ENGINEER SCAN - LABS 01/15/2019 12:00 AM PASSENGER LOCOMOTIVE ENGINEER documented in this encounter Results * SCAN - LABS (01/15/2019 12:00 AM PASSENGER LOCOMOTIVE ENGINEER) Narrative 01/15/2019 12:00 AM PASSENGER LOCOMOTIVE ENGINEER Ordered by an unspecified provider. Historical Provider Final Res ult * SCAN - LABS (01/15/2019 12:00 AM PASSENGER LOCOMOTIVE ENGINEER) Narrative 01/15/2019 12:00 AM PASSENGER LOCOMOTIVE ENGINEER Ordered by an unspecified provider. us Historical Provider Final Res ult documented in this encounter Visit Diagnoses Not on filedocumented in this encounter Care Teams Project Scheduler Relationship Specialty Start Date End Date Leonard Morales MD PCP - General Family Medicine 01/31/19 08/07/22 Kyle Rodriguez PA [address] [place] [address] PCP - General Family Medicine 08/08/22 Lloyd Carrasco MD [address] [place] [address] [place] [address] Dermatology 02/24/24 documented as of this encounter
--- OUTSIDE RECORDS SUMMARY | 2025-04-27 09:27 | XMS_ITS | Clinical Summary ---
Author Organization [facility] Kelvin meneses [facility] Address [address] [place] [address] Care Team Providers Care Bioinformatics Team Member Name Role Phone Unavailable Primary Care Provider [...] Description 05/06/2025 4:00 PM CDT Office Visit [facility] Oncology and Hematology - [place] [address] [address] Deandre Duff MD [address] [facility] [address] [place] [address] Health Maintenance Due Date Last [...]
--- OUTSIDE RECORDS SUMMARY | 2025-04-27 09:27 | XMS_ITS | Referral Summary ---
Author Organization [facility] [place] [address] [facility] Address [address] [place] [address] Care Team Providers Care Condenser Tube Tender Name Role Phone Kyle Rodriguez Primary Care Provider [phone] Lloyd Carrasco MD Unavailable [phone] Encounters Date Type Department Care Team Description 03/31/2025 Telephone [facility] Family Medicine at [address] [place] [address] Kyle Rodriguez PA Urine Culture not picked up from lock box 03/25/2025 Results Follow-Up [facility] Family Medicine at [address] [place] [address] Kyle Rodriguez PA Diagnostic Mammogram Right W Shivam 03/25/2025 Orders Only [facility] Family Medicine at [address] [place] [address] Kyle Rodriguez PA 03/25/2025 Orders Only [facility] Medical [facility] Family Medicine at [address] [place] [address] Kyle Rodriguez PA Mass of lower outer quadrant of right breast 03/17/2025 Telephone [facility] Family Medicine at [address] [place] [address] Kyle Rodriguez PA Additional Services Or Orders 03/08/2025 8:00 AM CDT Office Visit [facility] Family Medicine at [address] [place] [address] Kyle Rodriguez PA Medicare annual [...] diet. Assessment & Plan (09/18/2021 2:30 PM ALTERNATIVE DISPUTE RESOLUTION MEDIATOR): Chronic Work on diet and exercise. Repeat lipid panel in 6 mo. ANA (generalized anxiety disorder) 11/13/2019 Assessment & Plan (08/31/2024 11:07 PM CDT): Chronic Stable Continue xanax prn Assessment & Plan (11/14/2021 2:57 PM ALTERNATIVE DISPUTE RESOLUTION MEDIATOR): Chronic Stable Continue xanax prn Assessment & Plan (01/27/2021 10:36 AM CDT): Chronic condition improved with use of buspirone. Continue with current regimen including BuSpar and Viibryd. Assessment & Plan (12/09/2020 9:09 AM ALTERNATIVE DISPUTE RESOLUTION MEDIATOR): Refill xanax with #15 Start buspar 7.5mg bid for 1 week then increase 2tablets bid, Second script at 15mg bid Assessment & Plan (12/25/2019 10:09 AM ALTERNATIVE DISPUTE RESOLUTION MEDIATOR): Start buspar 7.5mg bid She has not taken any xanax in the past 4 weeks. Assessment & Plan (11/13/2019 10:47 AM ALTERNATIVE DISPUTE RESOLUTION MEDIATOR): Xanax 0.5mg every day prn #5 Flexural eczema 11/13/2019 Assessment & Plan (11/14/2021 2:52 PM ALTERNATIVE DISPUTE RESOLUTION MEDIATOR): Chronic condition with current exerbation Start betamethasone lotion Assessment & Plan (11/13/2019 10:47 AM ALTERNATIVE DISPUTE RESOLUTION MEDIATOR): Start betamethasone diproprionate oint Abnormal mammogram of left breast 01/16/2019 Age-related cataract of both eyes 09/12/2018 Grief at loss of child 09/12/2018 Assessment & Plan (12/25/2019 10:09 AM ALTERNATIVE DISPUTE RESOLUTION MEDIATOR): Refer to [facility] counseling Assessment & Plan (11/13/2019 10:47 AM ALTERNATIVE DISPUTE RESOLUTION MEDIATOR): Start viibryd starter stephanie and copay card [...] on file Legal Sex Female 10:10 PM ALTERNATIVE DISPUTE RESOLUTION MEDIATOR Gender Identity Female 04/26/2022 10:45 AM CDT [...] - 03/24/2025 5:08 AM CDT Performed at: [facility] [id number] Performance Management Consultant: Albert Shore PhD, Phone: [phone] us Kyle KAT LAB BLOOD ORDERABLES Final Resu lt [facility] - * Urine culture (03/23/2025 12:41 PM CDT) Urine culture Final report [facility] - Result 1 Comment [facility] - Comment: Mixed urogenital krissy 10,000-25,000 colony forming units per mL 03/23/2025 12:4 1 PM CDT 03/23/2025 Comment:KAUSHAL Quijano [facility] - 03/25/2025 4:07 AM CDT Performed at: [facility] [id number] Performance Management Consultant: Albert Shore PhD, Phone: [phone] us Kyle KAT LAB MICROBIOLOGY - GENERAL ORDE RABLES Final Result Performing Organization Address [facility] Co de Phone Number [facility] - [...] - 03/24/2025 8:11 AM CDT Performed at: [facility] [id number] Performance Management Consultant: Albert Shore PhD, Phone: [phone] Kyle KAT LAB BLOOD ORDERABLES Final Resu lt Performing Organization Address [facility]/ZIP Co de Phone Number [facility] - [...] 8:11 AM CDT Performed at: 01 - [facility] [id number] Performance Management Consultant: Albert Shore PhD, Phone: [phone] us Kyle KAT LAB BLOOD ORDERABLES Final Resu lt [facility] - 01 * (ABNORMAL) POCT urinalysis dipstick (03/08/2025 9:13 AM CDT) [facility] Signature Color, Urine, POC Dark Yellow Clarity, ur, POC Clear Clear Glucose, ur, POC Negative Negative MG/DL Bilirubin, ur, POC Small Negative, Small, Moderate, Large Ketones, ur, POC Trace(A) Negative Specific [place], POC 1.030 1.003 - 1.030 Blood, ur, POC Small(A) Negative pH, ur, POC 5.5 5.0 - 8.0 Protein, ur, POC 30.(A) Negative Urobilinogen, urine, POC 0.2 0.2 - 1.0 mg/dL Nitrite, ur, POC Negative Negative Leukocytes, ur, POC Trace(A) Negative Lot Number [id number] Urine 03/08/2025 9:13 AM CDT Kyle KAT [...] Patient has taken/is taking vitamin-D and calcium. Management Specialist/Model: SpiceCSM A (S/N [id number]) CLINICAL INFORMATION: Current height: 64 inches Maximum [...] Bonnie Travis M.D. TW: TW Report ID: [id number] Reading Location: [id number] Procedure Note Bonnie Travis MD - 08/26/2024 EXAM DESCRIPTION: DEXA AXIAL SKELETON BONE DENSITY 1 OR MORE SITES REASON FOR STUDY: 69 y/o year old F with given history of: Post menopausal status. Patient has taken/is taking vitamin-D and calcium. Management Specialist/Model: [address] [facility] FACC [employer] Horizon A (S/N [id number]) CLINICAL INFORMATION: Current height: 64 inches Maximum [...] see below follow up recommendations. [facility] causes of low bone mineral density may [...] Bonnie Travis M.D. TW: TW Report ID: [id number] Reading Location: [id number] Kyle KAT IMHannah DXA PROCEDURES Final Result [...] age 40, based on guidelines of the [place] [employer] (ACR Practice Parameter for the Performance of Screening and Diagnostic Mammography) and [place] [employer]. For women [...] CDT) Stool DNA - Cologuard Negative Negative [employer] (CLIA #:[id number]) Comment: NEGATIVE TEST RESULT. A negative Cologuard [...] (Esteban Velez al, N Engl J Med 2014;370(14):1731-2285) The normal value (reference range) for this assay is negative. COLOGUARD RE-SCREENING RECOMMENDATION: Periodic colorectal cancer screening is an important part of preventive healthcare for asymptomatic individuals at average risk for colorectal cancer. Following a negative Cologuard result, the [place] [employer] and U.S. Multi-Society Task Force screening guidelines recommend a Cologuard re-screening interval of 3 years. References: [place] [employer] Guideline for Colorectal Cancer Screening: https://www.cancer.org/cancer/fjkzf-gnmivb-idglpp/xqoxyugcs-psvawsuhk-ckenmxy/ac s-rec ommendations.html.; Jake DK, Cece WATKINS, Jayde NavasK, Colorectal Cancer Screening: Recommendations for Physicians and Patients from the U.S. Multi-Society Task Force on Colorectal Cancer Screening , Am J Gastroenterology 2017; 112:9638-7071. TEST DESCRIPTION: Composite algorithmic analysis of stool [...] (Esteban Velez al, N Engl J Med 2014;370(14):7824-3207.) Cologuard may produce a false negative or false positive result (no colorectal cancer or precancerous polyp present at colonoscopy follow up). A negative Cologuard test result does not guarantee the absence of CRC or advanced adenoma (pre-cancer). The current Cologuard screening interval is every 3 years. ([place] [employer] Society and U.S. Multi-Society Task Force). Cologuard performance data in a 10,000 patient pivotal study using colonoscopy as the reference method can be accessed at the following location: www.Swopboard.StudioEX/results. Additional description of the Cologuard test process, warnings and precautions can be found at www.radRounds Radiology Networkoguard.StudioEX. Stool 04/21/2023 6:30 AM CDT 04/23/2023 5:11 PM CDT Kyle KAT LAB BODY FLUIDS AND STOOLS EMORY GILBERT Final Result [facility] (CLIA #:[id number]) [address] [place] [address] * Hepatitis C antibody (08/31/2021 9:45 AM CDT) [facility] Hep C Ab <0.1 0.0 - 0.9 s/co ratio [facility] - 01 Comment: Negative: < 0.8 Indeterminate: 0.8 - 0.9 Positive: > 0.9 The CDC recommends that a positive HCV antibody result be followed up with a HCV Nucleic Acid Amplification test (691760). Blood specimen (specimen) 08/31/2021 9:45 AM CDT 08/31/2021 Narrative [facility] - 09/01/2021 5:07 AM CDT Performed at: [facility] [id number] Performance Management Consultant: Albert Shore PhD, Phone: [phone] Kyle KAT LAB MICROBIOLOGY - GENERAL EMORY GILBERT Final Result [facility] - 01 from Last 3 Months or Most Recently Relevant to Health Maintenance Insurance MEDICARE AETNA SENIOR SUPPLEMENT Care Teams Condenser Tube Tender Relationship Specialty Start Date End Date Kyle Rodriguez PA [address] [place] [address] PCP - General Family Medicine 08/08/22 Lloyd Carrasco MD [address] [place] [address] [place] [address] Dermatology 02/24/24
[2025-04-27 09:38] LABS: Glucose Point of Care 94 mg/dl (65-105)
== END 2025-04-27 08:58 | disposition home or self-care (01) ==
LOC: ANHIMG 08:58
PROVIDERS: PCP Physician Assistant Medical; Visit Provider Surgery
DX: C50.911 Malignant neoplasm of unspecified site of right female breast (principal); C77.3 Secondary and unspecified malignant neoplasm of axilla and upper limb lymph nodes
CPT/HCPCS: 78815; A9552

== ENCOUNTER 2025-04-28 01:04 | Day surgery (SDC) | payer MEDICARE, SELFPAY ==
[2025-04-22 13:23] VITALS: BMI 20.8
--- NOTE | 2025-04-22 13:43 | PC.NURSE ---
Report to the Outpatient Waiting Room, entrance under the green pavilion located off [facility], at time ___11:30AM____ on date __04/28/25 . Planned Procedure Time: ___1:30PM .? Time changes happen often and if your time is changed the preop area will call you the afternoon before. - You and your visitor will be asked to self-screen and do not enter if you have any COVID symptoms. Please call surgeon if you need to reschedule. - A mask is optional within the hospital at this time. Patients may have clear liquids (water, carbonated beverages, clear teas, apple juice) until 3 hours prior to surgery (10:30AM) with a maximum of 20 ounces. - No food from midnight until time of surgery and no smoking, or chewing tobacco (or any form of nicotine). No chewing gum, candy or mints. Take only the following medications with a SIP of water on the morning of surgery: NONE DO NOT STOP ANY OF YOUR OTHER PRESCRIPTION MEDICATIONS PRIOR TO SURGERY EXCEPT THE FOLLOWING Hold all vitamins and supplements for 3 days per anesthesiologist. Medications to discontinue per physician NONE Date to take last dose Please no make-up, nail indonesian, hairspray, perfume, deodorant, or body powder the day of surgery.? No jewelry (including any body piercings) or valuables the day of surgery, leave them at home.? Please take a shower or bath the night before, or the morning of, surgery with an antibacterial soap.? Wear comfortable, loose fitting clothing.? Children are encouraged to wear pajamas. - Jewelry must be removed prior to entering the operating room.? Rings and piercings that are not removed may be cut off. - The hospital will not accept responsibility for valuables.? - Please leave all valuables, including medications, at home the day of surgery. If you are going home after surgery, a licensed form setter/driver must drive you home.? - NO public transportation without another adult if you receive anesthesia. - We recommend that an adult stay with you for 24 hours following discharge. - We also recommend that you do not drive, make important decision, drink alcoholic beverages, or take any drugs that were not prescribed by your health care provider for at least 24 hours after your discharge time. Follow any additional instructions given to you from your surgeon. Telephone instructions given to ____PATIENT and asked if any additional questions and then verbalized understanding. Patient advised to call surgeon office or pre surgery nurse liaison [phone] if any additional questions.
--- NOTE | ~2025-04-28 | XR_ITS ---
INTRAOPERATIVE FLUOROSCOPY: CLINICAL HISTORY: 70 years old Female; INSERTION MEDIPORT PLACEMENT PROCEDURE COMMENTS: Limited intraoperative fluoroscopy of the chest was performed. CUMULATIVE DOSE: 5.4 mGy FLUOROSCOPY TIME: 53 seconds FINDINGS/IMPRESSION: Please refer to operative note for further details. Reviewed, dictated and finalized at location A.
--- NOTE | ~2025-04-28 | XR_ITS ---
EXAMINATION: XR chest port-a-cath/central DATE: 04/28/2025 14:55 INDICATION: Port catheter insertion TECHNIQUE: frontal view of the chest was obtained. COMPARISON: PET/CT dated 04/27/2025 FINDINGS: Left internal jugular central venous port catheter with distal tip at the midsuperior vena cava. Ther e is emphysema, severe at the left mid and upper lung zones with prominent increased lucency and arch itectural distortion. No airspace opacities, pulmonary edema, pleural effusion or pneumothorax. Heart size is normal. 40 degree upper thoracic levoscoliosis. IMPRESSION: 1. Left internal jugular central venous port catheter with distal tip in the midsuperior vena cava. 2. Emphysema, severe in the left mid and upper lung zones. No acute cardiopulmonary disease. Reviewed, dictated and finalized at location A. IMPRESSION: 1. Left internal jugular central venous port catheter with distal tip in the mi dsuperior vena cava. 2. Emphysema, severe in the left mid and upper lung zones. No acute cardiopulmo nary disease.
--- OUTSIDE RECORDS SUMMARY | 2025-04-28 01:08 | XMS_ITS | Referral Summary ---
Author Organization [facility] [place] [address] [facility] Address [address] [place] [address] Care Team Providers Care Volunteer Services Coordinator Name Role Phone Kyle Rodriguez Primary Care Provider [phone] Lloyd Carrasco MD Unavailable [phone] Encounters Date Type Department Care Team Description 03/31/2025 Telephone [facility] Family Medicine at [address] [place] [address] Kyle Rodriguez PA Urine Culture not picked up from lock box 03/25/2025 Results Follow-Up [facility] Family Medicine at [address] [place] [address] Kyle Rodriguez PA Diagnostic Mammogram Right W Shivam 03/25/2025 Orders Only [facility] Family Medicine at [address] [place] [address] Kyle Rodriguez PA 03/25/2025 Orders Only [facility] Family Medicine at [address] [place] [address] Kyle Rodriguez PA Mass of lower outer quadrant of right breast 03/17/2025 Telephone [facility] Family Medicine at [address] [place] [address] Kyle Rodriguez PA Additional Services Or Orders 03/08/2025 8:00 AM CDT Office Visit [facility] Family Medicine at [address] [place] [address] Kyle Rodriguez PA Medicare annual [...] diet. Assessment & Plan (09/18/2021 2:30 PM HEDIS NURSE): Chronic Work on diet and exercise. Repeat lipid panel in 6 mo. ANA (generalized anxiety disorder) 11/13/2019 Assessment & Plan (08/31/2024 11:07 PM CDT): Chronic Stable Continue xanax prn Assessment & Plan (11/14/2021 2:57 PM HEDIS NURSE): Chronic Stable Continue xanax prn Assessment & Plan (01/27/2021 10:36 AM CDT): Chronic condition improved with use of buspirone. Continue with current regimen including BuSpar and Viibryd. Assessment & Plan (12/09/2020 9:09 AM HEDIS NURSE): Refill xanax with #15 Start buspar 7.5mg bid for 1 week then increase 2tablets bid, Second script at 15mg bid Assessment & Plan (12/25/2019 10:09 AM HEDIS NURSE): Start buspar 7.5mg bid She has not taken any xanax in the past 4 weeks. Assessment & Plan (11/13/2019 10:47 AM HEDIS NURSE): Xanax 0.5mg every day prn #5 Flexural eczema 11/13/2019 Assessment & Plan (11/14/2021 2:52 PM HEDIS NURSE): Chronic condition with current exerbation Start betamethasone lotion Assessment & Plan (11/13/2019 10:47 AM HEDIS NURSE): Start betamethasone diproprionate oint Abnormal mammogram of left breast 01/16/2019 Age-related cataract of both eyes 09/12/2018 Grief at loss of child 09/12/2018 Assessment & Plan (12/25/2019 10:09 AM HEDIS NURSE): Refer to [facility] counseling Assessment & Plan (11/13/2019 10:47 AM HEDIS NURSE): Start viibryd starter stephanie and copay card [...] on file Legal Sex Female 10:10 PM HEDIS NURSE Gender Identity Female 04/26/2022 10:45 AM CDT [...] - 03/24/2025 5:08 AM CDT Performed at: [facility] [id number] Enrollment Advisor: Albert Shore PhD, Phone: [phone] us Kyle KAT LAB BLOOD ORDERABLES Final Resu lt [facility] - * Urine culture (03/23/2025 12:41 PM CDT) Urine culture Final report [facility] - Result 1 Comment [facility] - Comment: Mixed urogenital krissy 10,000-25,000 colony forming units per mL 03/23/2025 12:4 1 PM CDT 03/23/2025 Comment:KAUSHAL Quijano [facility] - 03/25/2025 4:07 AM CDT Performed at: [facility] [id number] Enrollment Advisor: Albert Shore PhD, Phone: [phone] us Kyle KAT LAB MICROBIOLOGY - GENERAL ORDE RABLES Final Result Performing Organization Address [facility] Co de Phone Number [facility] - [...] - 03/24/2025 8:11 AM CDT Performed at: [facility] [id number] Enrollment Advisor: Albert Shore PhD, Phone: [phone] Kyle KAT LAB BLOOD ORDERABLES Final Resu lt Performing Organization Address [facility]/ZIP Co de Phone Number [facility] - [...] 8:11 AM CDT Performed at: 01 - [address] [id number] Enrollment Advisor: Albert Shore PhD, Phone: [phone] us Kyle KAT LAB BLOOD ORDERABLES Final Resu lt [facility] - 01 * (ABNORMAL) POCT urinalysis dipstick (03/08/2025 9:13 AM CDT) [facility] Signature Color, Urine, POC Dark Yellow Clarity, ur, POC Clear Clear Glucose, ur, POC Negative Negative MG/DL Bilirubin, ur, POC Small Negative, Small, Moderate, Large Ketones, ur, POC Trace(A) Negative Specific [place], POC 1.030 1.003 - 1.030 Blood, ur, POC Small(A) Negative pH, ur, POC 5.5 5.0 - 8.0 Protein, ur, POC 30.(A) Negative Urobilinogen, urine, POC 0.2 0.2 - 1.0 mg/dL Nitrite, ur, POC Negative Negative Leukocytes, ur, POC Trace(A) Negative Lot Number [id number] Urine 03/08/2025 9:13 AM CDT Kyle KAT [...] Patient has taken/is taking vitamin-D and calcium. Animal Rehabilitator/Model: KissMyAds A (S/N [id number]) CLINICAL INFORMATION: Current height: 64 inches Maximum [...] Bonnie Travis M.D. TW: TW Report ID: [id number] Reading Location: [id number] Procedure Note Bonnie Travis MD - 08/26/2024 EXAM DESCRIPTION: DEXA AXIAL SKELETON BONE DENSITY 1 OR MORE SITES REASON FOR STUDY: 69 y/o year old F with given history of: Post menopausal status. Patient has taken/is taking vitamin-D and calcium. Animal Rehabilitator/Model: HoloStrava Horizon A (S/N [id number]) CLINICAL INFORMATION: Current height: 64 inches Maximum [...] see below follow up recommendations. [facility] of low bone mineral density may [...] Bonnie Travis M.D. TW: TW Report ID: [id number] Reading Location: [id number] Kyle KAT IMHannah DXA PROCEDURES Final Result [...] age 40, based on guidelines of the [place] [employer] (ACR Practice Parameter for the Performance of Screening and Diagnostic Mammography) and [place] [employer]. For women [...] CDT) Stool DNA - Cologuard Negative Negative [employer] (CLIA #:[id number]) Comment: NEGATIVE TEST RESULT. A negative Cologuard [...] (Esteban Velez al, N Engl J Med 2014;370(14):1129-2721) The normal value (reference range) for this assay is negative. COLOGUARD RE-SCREENING RECOMMENDATION: Periodic colorectal cancer screening is an important part of preventive healthcare for asymptomatic individuals at average risk for colorectal cancer. Following a negative Cologuard result, the [place] [employer] and U.S. Multi-Society Task Force screening guidelines recommend a Cologuard re-screening interval of 3 years. References: [place] [employer] Guideline for Colorectal Cancer Screening: https://www.cancer.org/cancer/rxwpc-xegjwe-odwrnx/zgwnoqmkc-ldepwvcmb-thxntll/ac s-rec ommendations.html.; Jake DK, Cece WATKINS, Jayde NavasK, Colorectal Cancer Screening: Recommendations for Physicians and Patients from the U.S. Multi-Society Task Force on Colorectal Cancer Screening , Am J Gastroenterology 2017; 112:9341-2892. TEST DESCRIPTION: Composite algorithmic analysis of stool [...] (Esteban Velez al, N Engl J Med 2014;370(14):8332-2303.) Cologuard may produce a false negative or false positive result (no colorectal cancer or precancerous polyp present at colonoscopy follow up). A negative Cologuard test result does not guarantee the absence of CRC or advanced adenoma (pre-cancer). The current Cologuard screening interval is every 3 years. ([place] [employer] and U.S. Multi-Society Task Force). Cologuard performance data in a 10,000 patient pivotal study using colonoscopy as the reference method can be accessed at the following location: www.Sleep Solutions.Lytro/results. Additional description of the Cologuard test process, warnings and precautions can be found at www.Aquatic Informaticsoguard.Lytro. Stool 04/21/2023 6:30 AM CDT 04/23/2023 5:11 PM CDT Kyle KAT LAB BODY FLUIDS AND STOOLS EMORY GILBERT Final Result [employer] [facility] (CLIA #:[id number]) [address] [place] [address] * Hepatitis C antibody (08/31/2021 9:45 AM CDT) [facility] Hep C Ab <0.1 0.0 - 0.9 s/co ratio [facility] - 01 Comment: Negative: < 0.8 Indeterminate: 0.8 - 0.9 Positive: > 0.9 The CDC recommends that a positive HCV antibody result be followed up with a HCV Nucleic Acid Amplification test ([id number]). Blood specimen (specimen) 08/31/2021 9:45 AM CDT 08/31/2021 Narrative [facility] - 09/01/2021 5:07 AM CDT Performed at: [facility] [id number] Enrollment Advisor: Albert Shore PhD, Phone: [phone] Kyle KAT LAB MICROBIOLOGY - GENERAL EMORY GILBERT Final Result [facility] - 01 from Last 3 Months or Most Recently Relevant to Health Maintenance Insurance MEDICARE AETNA SENIOR SUPPLEMENT Care Teams Volunteer Services Coordinator Relationship Specialty Start Date End Date Kyle Rodriguez PA [address] [place] [address] PCP - General Family Medicine 08/08/22 Lloyd Carrasco MD [address] [place] [address] [place] [address] Dermatology 02/24/24
--- OUTSIDE RECORDS SUMMARY | 2025-04-28 01:08 | XMS_ITS | Encounter Summary ---
Author Organization [facility] Healthcare Address [address] [place] [address] Care Team Providers Care Alliance Consultant Name Role Phone Kyle Rodriguez Primary Care Provider [phone] Lloyd Carrasco MD Unavailable [phone] Encounter Details Date Type Department Care Team (Late st Contact Info) Description 03/25/2025 Results Follow-Up [facility] Family Medicine at [address] [place] [address] Kyle Rodriguez PA [address] [place] [address] Diagnostic Mammogram Right W Shivam Social [...] on file Legal Sex Female 10:10 PM SILK WINDING MACHINE OPERATOR Gender Identity Female 04/26/2022 10:45 AM CDT Sexual Orientation Straight 04/26/2022 10 :45 AM CDT documented as of this encounter Plan of Treatment Not on file documented as of this encounter Visit Diagnoses Not on filedocumented in this encounter Care Teams Alliance Consultant Relationship Specialty Start Date End Date Kyle Rodriguez PA [address] [place] [address] PCP - General Family Medicine 08/08/22 Lloyd Carrasco MD [address] [place] [address] Dermatology 02/24/24 documented as of this encounter
--- OUTSIDE RECORDS SUMMARY | 2025-04-28 01:08 | XMS_ITS | Continuity of Care Document ---
Author Organization [facility] Address [address] [place] [address] [address] [place] [address] Phone Care Team Providers Care Medical Office Receptionist Assistant Name Role Phone Quintin Calvo MD Unavailable Unavailable Procedures Procedure Date CATARACT SURG W/IOL, 1 STAGE CATARACT SURG W/IOL, 1 STAGE OFFICE/OUTPATIENT VISIT, [facility] OPHTHALMIC BIOMETRY OPHTHALMIC BIOMETRY Advance Directives Directive Yes / No Effective Date File Name No Information Encounters Encounter Description Practice Location Reason(s) For Visit Diagnoses Date Provider Providers Copied on Encounter Ophthalmology [facility], [address] [place] [address], [place], [place], [address] [place] [address], tel:[phone] [facility] [place] No Information 8 Lubna Ribeiro. [address] [facility], [address], [place], [place], [id number], . tel:[phone] Referring Provider: Quintin Perez, [address] [place] [address] [address], [place], [address]. tel:[phone] Ophthalmology [facility], [address] [place] [address] [address], [id number], tel:[phone] [facility] [place] No Information 8 Lubna Ribeiro. [address] [place] [address], [facility] [address], [id number], . tel:[phone] Referring Provider: Quintin Perez, [address] [place] [address] [address], [place], [address]. tel:[phone] OFFICE/OUTPAT IENT VISIT, NEW [facility], [address], [place], [place], [id number], [place] tel:[phone] [place] No Information 8 Lubna Ribeiro. [address] [facility], [address], [place], [place], [id number], [place]. tel:[phone] Referring Provider: Quintin Perez, [address] [facility] [address], [place], [address]. tel:[phone] Family History Family Member Type Diagnosis Age [...]
--- OUTSIDE RECORDS SUMMARY | 2025-04-28 01:08 | XMS_ITS | Encounter Summary ---
Author Organization [facility] Care Team Providers Care Associate Juvenile Court Judge Name Role Phone Leonard Morales MD Primary Care Provider [phone] Kyle Rodriguez Primary Care Provider [phone] Lloyd Carrasco MD Unavailable [phone] Encounter Details Date Type Department Care Team (Latest Contact Info) Description 01/14/2019 Orders Only [facility] CLINCONV Provider, MD Dominga [address] [place], [place] [id number] Social History Tobacco Use Types Packs/Day Years Used Date Smoking Tobacco: Never Assessed Comments Unknown Sex and Gender Information Value Date Recorded Sex Assigned at Not on file Legal Sex Female 10:10 PM BIOMEDICAL ENGINEERING TECHNICIAN Gender Identity Female 04/26/2022 10:45 AM CDT Sexual Orientation Straight 04/26/2022 10 :45 AM CDT documented as of this encounter Plan of Treatment Not on file documented as of this encounter Procedures Procedure Name Priority Date/Time Associated Diagnosis Comments SCAN - LABS 01/15/2019 12:00 AM BIOMEDICAL ENGINEERING TECHNICIAN SCAN - LABS 01/15/2019 12:00 AM BIOMEDICAL ENGINEERING TECHNICIAN documented in this encounter Results * SCAN - LABS (01/15/2019 12:00 AM BIOMEDICAL ENGINEERING TECHNICIAN) Narrative 01/15/2019 12:00 AM BIOMEDICAL ENGINEERING TECHNICIAN Ordered by an unspecified provider. Historical Provider Final Res ult * SCAN - LABS (01/15/2019 12:00 AM BIOMEDICAL ENGINEERING TECHNICIAN) Narrative 01/15/2019 12:00 AM BIOMEDICAL ENGINEERING TECHNICIAN Ordered by an unspecified provider. us Historical Provider Final Res ult documented in this encounter Visit Diagnoses Not on filedocumented in this encounter Care Teams Associate Juvenile Court Judge Relationship Specialty Start Date End Date Leonard Morales MD PCP - General Family Medicine 01/31/19 08/07/22 Kyle Rodriguez PA [address] [place] [address] PCP - General Family Medicine 08/08/22 Lloyd Carrasco MD [address] [place] [address] [place] [address] Dermatology 02/24/24 documented as of this encounter
--- OUTSIDE RECORDS SUMMARY | 2025-04-28 01:08 | XMS_ITS | Clinical Summary ---
Author Organization [facility] [address] [facility] Address [address] [place] [address] Care Team Providers Care Racing Manager Name Role Phone Kyle Rodriguez Primary Care Provider [phone] Lloyd Carrasco MD Unavailable [phone] Allergies No known active allergies Medications methylPREDNISolo [...] diet. Assessment & Plan (09/18/2021 2:30 PM PRESS OPERATOR HELPER): Chronic Work on diet and exercise. Repeat lipid panel in 6 mo. ANA (generalized anxiety disorder) 11/13/2019 Assessment & Plan (08/31/2024 11:07 PM CDT): Chronic Stable Continue xanax prn Assessment & Plan (11/14/2021 2:57 PM PRESS OPERATOR HELPER): Chronic Stable Continue xanax prn Assessment & Plan (01/27/2021 10:36 AM CDT): Chronic condition improved with use of buspirone. Continue with current regimen including BuSpar and Viibryd. Assessment & Plan (12/09/2020 9:09 AM PRESS OPERATOR HELPER): Refill xanax with #15 Start buspar 7.5mg bid for 1 week then increase 2tablets bid, Second script at 15mg bid Assessment & Plan (12/25/2019 10:09 AM PRESS OPERATOR HELPER): Start buspar 7.5mg bid She has not taken any xanax in the past 4 weeks. Assessment & Plan (11/13/2019 10:47 AM PRESS OPERATOR HELPER): Xanax 0.5mg every day prn #5 Flexural eczema 11/13/2019 Assessment & Plan (11/14/2021 2:52 PM PRESS OPERATOR HELPER): Chronic condition with current exerbation Start betamethasone lotion Assessment & Plan (11/13/2019 10:47 AM PRESS OPERATOR HELPER): Start betamethasone diproprionate oint Abnormal mammogram of left breast 01/16/2019 Age-related cataract of both eyes 09/12/2018 Grief at loss of child 09/12/2018 Assessment & Plan (12/25/2019 10:09 AM PRESS OPERATOR HELPER): Refer to [facility] counseling Assessment & Plan (11/13/2019 10:47 AM PRESS OPERATOR HELPER): Start viibryd starter stephanie and copay card Encounters Date Type Department Care Team Description 03/31/2025 Telephone [facility] Family Medicine at [address] [place] [address] Kyle Rodriguez PA Urine Culture not picked up from lock box 03/25/2025 Results Follow-Up [facility] Family Medicine at [address] [place] [address] Kyle Rodriguez PA Diagnostic Mammogram Right W Shivam 03/25/2025 Orders Only [facility] Family Medicine at [address] [place] [address] Kyle Rodriguez PA 03/25/2025 Orders Only [facility] Family Medicine at [address] [place] [address] Kyle Rodriguez PA Mass of lower outer quadrant of right breast 03/17/2025 Telephone [facility] Family Medicine at [address] [place] [address] Kyle Rodriguez PA Additional Services Or Orders 03/08/2025 8:00 AM CDT Office Visit [facility] Family Medicine at [address] [place] [address] Kyle Rodriguez PA Medicare annual wellness visit, [...] on file Legal Sex Female 10:10 PM PRESS OPERATOR HELPER Gender Identity Female 04/26/2022 10:45 AM CDT [...] 5:08 AM CDT Performed at: [facility] [address] [id number] Car Shunter: Albert Shore PhD, Phone: [phone] us Kyle KAT LAB BLOOD ORDERABLES Final Resu lt [facility] - 01 * Urine culture (03/23/2025 12:41 PM CDT) Urine culture Final report [facility] - 01 Result 1 Comment [facility] - 01 Comment: Mixed urogenital krissy 10,000-25,000 colony forming units per mL 03/23/2025 12:4 1 PM CDT 03/23/2025 Comment:KAUSHAL Quijano [facility] - 03/25/2025 4:07 AM CDT Performed at: [address] [id number] Car Shunter: Albert Shore PhD, Phone: [phone] Kyle KAT LAB MICROBIOLOGY - GENERAL ORDE RABLES Final Result Performing Organization Address [facility] de Phone Number [facility] * (ABNORMAL) [...] - 03/24/2025 8:11 AM CDT Performed at: [address] [id number] Car Shunter: Albert Shore PhD, Phone: [phone] Kyle KAT LAB BLOOD ORDERABLES Final Resu lt Performing Organization Address [facility] de Phone Number [facility] - * [...] CDT Performed at: 01 - [place] [id number] Car Shunter: Albert Shore PhD, Phone: [phone] us Kyle KAT LAB BLOOD ORDERABLES Final Resu lt [facility] - 01 * (ABNORMAL) POCT urinalysis dipstick (03/08/2025 9:13 AM CDT) Color, Urine, POC Dark Yellow Clarity, ur, POC Clear Clear Glucose, ur, POC Negative Negative MG/DL Bilirubin, ur, POC Small Negative, Small, Moderate, Large Ketones, ur, POC Trace(A) Negative Specific Hollis, POC 1.030 1.003 - 1.030 Blood, ur, POC Small(A) Negative pH, ur, POC 5.5 5.0 - 8.0 Protein, ur, POC 30.(A) Negative Urobilinogen, urine, POC 0.2 0.2 - 1.0 mg/dL Nitrite, ur, POC Negative Negative Leukocytes, ur, POC Trace(A) Negative Lot Number [id number] Urine 03/08/2025 9:13 AM CDT Kyle KAT [...] Patient has taken/is taking vitamin-D and calcium. Order Caller/Model: SocialDiabetes A (S/N [id number]) CLINICAL INFORMATION: Current height: 64 inches Maximum [...] Bonnie Travis M.D. TW: TW Report ID: [id number] Reading Location: [id number] Procedure Note Bonnie Travis MD - 08/26/2024 EXAM DESCRIPTION: DEXA AXIAL SKELETON BONE DENSITY 1 OR MORE SITES REASON FOR STUDY: 69 y/o year old F with given history of: Post menopausal status. Patient has taken/is taking vitamin-D and calcium. Order Caller/Model: Hologic Horizon A (S/N [id number]) CLINICAL INFORMATION: Current height: 64 inches Maximum [...] Bonnie Travis M.D. TW: FLORI Report ID: [id number] Reading Location: [id number] Kyle KAT IMHannah DXA PROCEDURES Final Result [...] CDT) Stool DNA - Cologuard Negative Negative [facility] (CLIA #:[id number]) Comment: NEGATIVE TEST RESULT. A negative Cologuard [...] colonoscopy. (Esteban Whitehead, N Engl J Med 2014;370(14):1920-2636) The normal value (reference range) for this [...] Cancer Society Guideline for Colorectal Cancer Screening: https://www.cancer.org/cancer/ofvye-sgwkqu-ywhwgs/lxrxpwerj-rzklqcfew-fdybjyy/ac s-rec ommendations.html.; Jake DK, Cece CR, Jayde NavasK, Colorectal Cancer Screening: Recommendations for Physicians and Patients from the U.S. Multi-Society Task Force on Colorectal Cancer Screening , Am J Gastroenterology 2017; 112:1486-4777. TEST DESCRIPTION: Composite algorithmic analysis of stool [...] T. et al, N Engl J Med 2014;370(14):0248-4744.) Cologuard may produce a false negative or [...] can be accessed at the following location: www.GiveNext.WeHack.It/results. Additional description of the Cologuard test process, warnings and precautions can be found at www.cologuard.com. Stool 04/21/2023 6:30 AM CDT 04/23/2023 5:11 PM CDT Kyle KAT LAB BODY FLUIDS AND STOOLS EMORY GILBERT Final Result Performing Organization Address [facility] de Phone Number [facility] (CLIA #:[id number]) [address] [place] [address] * Hepatitis C antibody (08/31/2021 9:45 AM CDT) Pathologist [facility] Hep C Ab <0.1 0.0 - 0.9 s/co ratio [facility] - 01 Comment: Negative: < 0.8 Indeterminate: 0.8 - 0.9 Positive: > 0.9 The CDC recommends that a positive HCV antibody result be followed up with a HCV Nucleic Acid Amplification test (285597). Blood specimen (specimen) 08/31/2021 9:45 AM CDT 08/31/2021 Narrative [facility] - 09/01/2021 5:07 AM CDT Performed at: [facility] [id number] Car Shunter: Albert Shore PhD, Phone: [phone] Kyle KAT LAB MICROBIOLOGY - GENERAL EMORY GILBERT Final Result [facility] - 01 from Last 3 Months or Most Recently Relevant to Health [place] [address] [employer] Care Teams Racing Manager Relationship Specialty Start Date End Date Kyle Rodriguez PA [address] [place] [address] PCP - General Family Medicine 08/08/22 Lloyd Carrasco MD [address] [place] [address] [place] [address] Dermatology 02/24/24
--- OUTSIDE RECORDS SUMMARY | 2025-04-28 01:08 | XMS_ITS | Clinical Summary ---
Author Organization [facility] Kelvin meneses [facility] Address [address] [place] [address] Care Team Providers Care Gas Booster Engineer Name Role Phone Unavailable Primary Care Provider [...] Description 05/06/2025 4:00 PM CDT Office Visit [facility] [place] [address] [address] Deandre Duff MD [address] [facility] [address] [place] [address] Health Maintenance Due Date Last [...]
[2025-04-28 12:21] VITALS: BMI 20.6
[2025-04-28 12:23] VITALS: BP 131/78; PULSE 74; TEMP 37; O2SAT 99
--- NOTE | 2025-04-28 12:53 | WPDHPUPDATE1 ---
History and Physical Update Update Date/Time: 04/28/25 12:53 - Mediport placement with ultrasound and fluoroscopy guidance. History and Physical has been reviewed, including an updated exam of the patient. There are NO changes in the patient's condition. Risks, benefits, and alternatives have been discussed and questions answered. Patient agrees to proceed with procedure.
--- NOTE | 2025-04-28 12:59 | WPDANESEPPF ---
Anes - Initial Pre Proc Eval Procedure: Operation Date: 04/28/25 13:30 Proposed Procedures p Mediport Placement with Fluoroscopy and Ultrasound Guidance - Lilly Aguilar MD Date/Time: 04/28/25 12:59 Surgeon: Lilly Aguilar MD Pre Op Diagnosis: invasive ductal CA right breast Patient Data Age: 70 Gender: F Height: 1.63 m Weight: 54.6 kg Last Vital Signs Temp 37.0 C 04/28/25 12:23 Pulse 74 04/28/25 12:23 BP 131/78 04/28/25 12:23 Pulse Ox 99 04/28/25 12:23 Allergies Allergy/AdvReac Type Severity Reaction Status Date / Time No Known Allergies Allergy Verified 04/28/25 12:19 Home Medications ?Medication ?Instructions ?Recorded ?Confirmed ?Type No Home Medications 04/13/25 04/22/25 History Patient hx anesthesia problems: none Family hx anesthesia problems: none Results Review: All pre-operative results and documents have been reviewed as part of the pre-operative evaluation. [facility] Past Medical History Medical History (Updated 04/28/25 @ 13:14 by Mustapha Ying DO) Emphysema of lung asymptomatic Stage III breast cancer in female Social History Social History (Updated 04/21/25 @ 14:32 by Edna Cee CMA) Smoking packs per day: 0.2 Smoking cigarettes per day: 4.0 Years smoked: 10 Smoking pack-years: 2.00 Smoking status: Former smoker Tobacco type: cigarettes Smoking end date: 05/11/15 Alcohol intake: current Drinks per week: 2 Substance use: never Do You Feel Safe in your Home?: Yes Lack of Transportation: No Lack of Food: Never True Current Housing: I Have Housing Concerned About Future Housing: No Difficulty Paying Gas/Electric Bills: No Difficulty Paying for Meds: No Currently Unemployed: No Education: Trade/Vocational Certificate Difficulty w/ Childcare or Family Care: No Living arrangements: with family Additional living arrangements comments: DAUGHTER & GRANDSON Spiritual care concerns: No Anes - Eval Final PreProcedure Day of Procedure 04/28/25 12:59 Patient weight: normal Heart: regular rate and rhythm Lungs: clear to auscultation and normal air movement Airway: Mallampati scale class II Neurological: alert and oriented Last oral intake: >/= 8 hours ASA classification: III Emergent: no Anesthetic plan: proceed Anesthesia type and monitoring: general GIVS and standard monitoring Results Review: All pre-operative results and documents have been reviewed as part of the pre-operative evaluation. Informed Consent: The patient's anesthetic plan and its attendant risks and benefits were discussed with the patient/family/POA. Questions were solicited and answers provided to the satisfaction of the patient/family/POA.
[2025-04-28] MEDS: ceFAZolin 2 GM/D5W 50 ML 2 GM/50 ML BAG IVPB (13:28)
[2025-04-28] MEDS: BUPIVACAINE/EPINEPHRINE 0.5% 30 ML VIAL INFILTRATE (13:58)
[2025-04-28] MEDS: HEPARIN SODIUM 5,000 UNITS/ML VIAL 5000 UNITS IRRIGATION (13:59)
[2025-04-28] MEDS: HEPARIN SODIUM, PORCINE 10,000 UNITS/10 ML VIAL 4000 UNITS IV PUSH (14:00)
--- NOTE | 2025-04-28 14:39 | W.PM.PROC2 ---
Procedure Note - Detailed Date of Procedure 04/28/25 Pre-op Diagnosis invasive ductal CA right breast Post-op Diagnosis Same Procedure Performed Left internal jugular venous MediPort placement under ultrasound guidance and fluoroscopy. Surgeon Lilly Aguilar MD Anesthesia MAC Description of Procedure Patient was identified in the preoperative holding area brought to the operating room suite. She was laid supine in the OR table sequential compression devices were applied. Anesthesia was induced without difficulty. The left neck and upper chest were prepped and draped in a sterile fashion. Attention was turned to the left neck. Ultrasound was used to identify the internal jugular vein and a small incision was made overlying this area. Local anesthetic was infiltrated in the subcutaneous tissue and a needle was then slowly advanced under ultrasound guidance into the lumen of the internal jugular vein. Once dark venous blood was aspirated the syringe was removed and a guidewire was introduced into the internal jugular vein. Fluoroscopy images were obtained to verify the position of the wire going down into the superior vena cava. Once this was confirmed a small pocket was made by making a small incision with a 15 blade in the left upper chest. Dissection was carried down through the subcutaneous tissue and a small pocket was created for the future port. Hemostasis was assured. I then proceed to tunnel the catheter from this pocket to the neck after injecting local anesthetic in the subcutaneous tissue of the neck. Fluoroscopy images were obtained to measure the length of the catheter with the tip at the cavoatrial junction. The catheter was then cut distally at approximately 26 cm and connected to port. The port was then flushed with saline. An introducer with the peel-away sheath was then introduced into internal jugular vein under fluoroscopy guidance using the previously placed wire. The wire was removed as well as the introducer leaving the peel-away sheath. The catheter was then introduced into the IJ via the peel-away sheath which was slowly removed. Once the catheter was in good position, I was able to aspirate dark venous blood and easily flushed the port using the medina needle. A x-ray picture was taking to ensure there is no kinks throughout the catheter and the catheter tip was in good position at the superior aspect of the cavoatrial junction. Once this was performed the port was then secured to pectoralis fascia using interrupted silk sutures and placed into the subcutaneous pocket. The port was again aspirated and flushed with heparinized saline. The deep dermal layer was closed with interrupted Vicryl and the skin was closed with 4-0 Monocryl in a subcuticular fashion. The small incision in the neck was closed with a single interrupted Monocryl suture. Dermabond was applied to all the incisions. Patient was then awoken from anesthesia taken to the recovery area stable condition. All needles, instruments, and sponge counts were correct as reported by the operating room staff. Patient tolerated the procedure well with no immediate complications. Estimated Blood Loss 2 Complications No immediate complications Condition Stable Disposition PACU [facility] Billing Surgery - Charge Forward: Surgery Billing (CPT 26709, 50633)
[2025-04-28 14:42] VITALS: BP 120/68; PULSE 69; RESP 14; O2SAT 98
[2025-04-28] MEDS: LACTATED RINGERS 1,000 ML 30 ML IV CONT (14:42)
[2025-04-28 15:10] VITALS: BP 128/72; PULSE 74; RESP 14; O2SAT 97
[2025-04-28 15:40] VITALS: BP 127/67; PULSE 71; RESP 14
== END 2025-04-28 15:50 | disposition home or self-care (01) ==
PROVIDERS: PCP Physician Assistant Medical; Visit Provider Surgery
PROC: (CPT 36561; principal; 2025-04-28 13:30)
DX: C50.911 Malignant neoplasm of unspecified site of right female breast (principal); C77.3 Secondary and unspecified malignant neoplasm of axilla and upper limb lymph nodes; J43.9 Emphysema, unspecified; Z87.891 Personal history of nicotine dependence; Z85.3 Personal history of malignant neoplasm of breast
CPT/HCPCS: 36561; 77001; C1788; J0690; J1100; J1644; J2003; J2250; J2405; J2704; J3010; J7030; J7120

== ENCOUNTER 2025-05-02 12:28 | Emergency (ER) | payer MEDICARE, SELFPAY ==
--- NOTE | ~2025-05-02 | XR_ITS ---
Portable chest x-ray Comparison: 04/28/2025 Clinical History: Line placement Findings: Left-sided Mediport unchanged. Stable severe emphysema of the left lung with extensive hyp erlucency. Right lung remains clear. Cardiomediastinal silhouette is stable. Bones and soft tissues are unremarkable. Impression: No acute abnormality. Stable severe emphysema of the left lung in particular. Stable Mediport. Reviewed, dictated and finalized at location . Impression: No acute abnormality. Stable severe emphysema of the left lung in particular. Stable Mediport.
[2025-05-02 12:30] VITALS: BP 140/80; PULSE 82; RESP 16; TEMP 36.3; O2SAT 98
--- NOTE | 2025-05-02 12:58 | ED.GENADULT ---
HPI - General Adult General Chief complaint: Recheck/Abnormal Lab/Rx Stated complaint: INFECTED PORT SITE Time Seen by Provider: 05/02/25 12:40 History of Present Illness HPI narrative: This is a 70-year-old female with a history of invasive ductal carcinoma presenting with possible Port-A-Cath infection. Port-A-Cath was placed on [address] Lilly Aguilar. Patient notes he has had erythema and some drainage from the incision site. It is painful to the touch. She has put topical antibiotics on. She denies systemic signs of illness such as fevers chills nausea vomiting or diarrhea. Patient has tried to reach Dr. Aguilar but has been unsuccessful. Related Data Allergies Allergy/AdvReac Type Severity Reaction Status Date / Time No Known Allergies Allergy Verified 05/02/25 12:32 [facility] Past Medical History Medical History Emphysema of lung asymptomatic Stage III breast cancer in female Social History Social History Smoking packs per day: 0.2 Smoking cigarettes per day: 4.0 Years smoked: 10 Smoking pack-years: 2.00 Smoking status: Former smoker Tobacco type: cigarettes Smoking end date: 05/11/15 Alcohol intake: current Drinks per week: 2 Substance use: never Do You Feel Safe in your Home?: Yes Lack of Transportation: No Lack of Food: Never True Current Housing: I Have Housing Concerned About Future Housing: No Difficulty Paying Gas/Electric Bills: No Difficulty Paying for Meds: No Currently Unemployed: No Education: Trade/Vocational Certificate Difficulty w/ Childcare or Family Care: No Living arrangements: with family Additional living arrangements comments: DAUGHTER & GRANDSON Spiritual care concerns: No Exam Narrative: APPEARANCE: No apparent distress. Head: atraumatic. EYES: EOMI, NOSE: Atraumatic NECK: Trachea midline RESPIRATORY: No increased rate of breathing CTAB CARDIOVASCULAR: RRR, no peripheral edema ABDOMINAL: Non-distended MUSCULOSKELETAl: No obvious deformities NEURO: Alert. Moving 4/4 extremities SKIN:: Na anterior chest wall patient has erythema and redness over the incision site with scant clear drainage PSYCHIATRIC: Normal affect Course Vital Signs Vital signs: Vital Signs Temperature 97.4 F L 05/02/25 12:30 Pulse Rate 82 05/02/25 12:30 Respiratory Rate 16 05/02/25 12:30 Blood Pressure 140/80 05/02/25 12:30 Pulse Oximetry 98 05/02/25 12:30 Temperature 97.4 F L 05/02/25 12:30 Pulse Rate 82 05/02/25 12:30 Respiratory Rate 16 05/02/25 12:30 Blood Pressure 140/80 05/02/25 12:30 Pulse Oximetry 98 05/02/25 12:30 Medical Decision Making MDM Narrative Medical decision making narrative: -Course: 70-year-old female presenting with possible infected Port-A-Cath. Physical exam shows erythema and some scant drainage from the incision site. Fluctuant mass. Patient is not having fevers elevated white count CRP or ESR. Case was discussed with her breast surgeon. She will receive a dose of IV antibiotics and placed on Augmentin. She will follow-up at the breast surgery clinic tomorrow morning or Saturday. Given return precautions. Dr. Castellanos then called back and requested the patient receive a dose of IV Zosyn, IV clindamycin and discharged on Bactrim. She will see the patient clinic tomorrow. -DDX includes but is not limited to: Cellulitis, infected Port-A-Cath Vital Signs Vital Signs: Vital Signs Temperature 97.4 F L 05/02/25 12:30 Pulse Rate 82 05/02/25 12:30 Respiratory Rate 16 05/02/25 12:30 Blood Pressure 140/80 05/02/25 12:30 Pulse Oximetry 98 05/02/25 12:30 Temperature 97.4 F L 05/02/25 12:30 Pulse Rate 82 05/02/25 12:30 Respiratory Rate 16 05/02/25 12:30 Blood Pressure 140/80 05/02/25 12:30 Pulse Oximetry 98 05/02/25 12:30 Lab Data 05/02/25 13:12 05/02/25 13:11 Labs: Lab Results 05/02/25 05/02/25 05/02/25 Range/Units 13:11 13:12 13:12 WBC 9.8 (4.5-10.0) K/mm3 RBC 4.76 (4.2-5.4) M/mm3 Hgb 14.8 (12.0-15.0) g/dL Hct 44.3 (37.0-47.0) % MCV 93.1 (80-100) fl MCH 31.1 (26-34) pg MCHC 33.4 (32-36) g/dl RDW 12.6 (11.5-14.5) % Plt Count 193 (150-375) k/mm3 MPV 10.3 (7.4-10.4) fl Immature Gran % (Auto) 0.4 (0-0.5) % Neut % (Auto) 63.4 (45.5-73.1) % Lymph % (Auto) 21.1 (18.3-44.2) % Highlands % (Auto) 10.2 H (2.6-8.5) % Eos % (Auto) 3.8 (0-4.4) % Baso % (Auto) 1.1 (0.2-1.2) % Lymph # (Auto) 2.07 (0.9-3.2) K/mm3 Highlands # (Auto) 1.0 H (0.1-0.6) K/mm3 Eos # (Auto) 0.4 H (0-0.3) K/mm3 Baso # (Auto) 0.1 (0.0-0.1) K/mm3 Abs Immat Gran (auto) 0.04 H (0.00-0.031) K/mm3 Absolute Neuts (auto) 6.2 (1.3-6.7) K/mm3 Absolute Nucleated RBC 0.000 (0.0-0.012) K/mm3 Nucleated RBC % 0.0 (0.0-0.2) % ESR 11 Cancelled (0-20) mm/hr Sodium 141 (137-145) mmol/L Potassium 4.0 (3.4-5.0) mmol/L Chloride 107 (98-107) mmol/L Carbon Dioxide 27 (22-30) mmol/L Anion Gap 7 (4-12) mmol/L BUN 13 (7-17) mg/dL Creatinine 0.57 L (0.7-1.0) mg/dL Estim Creat Clear Calc 68 ml/min Estimated GFR > 60 (59 - ) Glucose 108 (65-110) mg/dL Calcium 9.5 (8.4-10.2) mg/dL Total Bilirubin 0.5 (0.2-1.3) mg/dL AST 25 (14-36) U/L ALT 16 (6-35) U/L Alkaline Phosphatase 53 (38-126) U/L C-Reactive Protein < 0.5 (<1.0) mg/dL Total Protein 7.0 (6.3-8.2) g/dL Albumin 4.0 (3.5-5.1) g/dL Discharge Plan Discharge Clinical Impression: Encounter for care related to Port-a-Cath, Cellulitis Patient Disposition: Home Condition: Stable Instructions: Antibiotic Form, Cellulitis (ED) Additional Instructions: You were seen in the emergency department for possible infection Port-A-Cath. Please take Bactrim as directed. Please call the Breast Clinic tomorrow morning and see them clinic either Saturday or Saturday. If you feel like you are getting worse, develops fevers, weakness or any other symptoms he can return to the ED for re-evaluation. Patient Language: Frisian Prescriptions: New amoxicillin-pot clavulanate 875-125 mg tablet 1 tablet PO Q12H Qty: 20 0RF sulfamethoxazole-trimethoprim [Bactrim DS] 800-160 mg tablet 1 tablet PO Q12H Qty: 14 0RF No Action oxycodone-acetaminophen 5-325 mg tablet 1 tablet PO Q6H PRN (Reason: pain) Qty: 12 0RF Follow-up/Referrals: Michael,[facility] [Primary Care Provider] -
[2025-05-02 13:19] LABS: Basophils Absolute Auto 0.1 K/mm3 (0.0-0.1); Basophils Percent Auto 1.1 % (0.2-1.2); Eosinophils Absolute Auto 0.4 K/mm3 (0-0.3); Eosinophils Percent Auto 3.8 % (0-4.4); Hematocrit 44.3 % (37.0-47.0); Hemoglobin 14.8 g/dL (12.0-15.0); Immature Granulocyte Absolute 0.04 K/mm3 (0.00-0.031); Immature Granulocyte Percent A 0.4 % (0-0.5); Lymphocytes Absolute Auto 2.07 K/mm3 (0.9-3.2); Lymphocytes Percent Auto 21.1 % (18.3-44.2); Mean Corpuscular HGB Conc 33.4 g/dl (32-36); Mean Corpuscular Hemoglobin 31.1 pg (26-34); Mean Corpuscular Volume 93.1 fl (80-100); Mean Platelet Volume 10.3 fl (7.4-10.4); Monocytes Percent Auto 10.2 % (2.6-8.5); Neutrophils Absolute Auto 6.2 K/mm3 (1.3-6.7); Neutrophils Percent Auto 63.4 % (45.5-73.1); Platelet Count Result 193 k/mm3 (150-375); Red Blood Count 4.76 M/mm3 (4.2-5.4); Red Cell Distribution Width 12.6 % (11.5-14.5); White Blood Count 9.8 K/mm3 (4.5-10.0)
[2025-05-02 13:29] LABS: Alanine Aminotransferase 16 U/L (6-35); Alkaline Phosphatase 53 U/L (38-126); Anion Gap 7 mmol/L (4-12); Aspartate Amino Transferase 25 U/L (14-36); Bilirubin,Total 0.5 mg/dL (0.2-1.3); Blood Urea Nitrogen 13 mg/dL (7-17); Calcium 9.5 mg/dL (8.4-10.2); Carbon Dioxide 27 mmol/L (22-30); Chloride 107 mmol/L (98-107); Estimated CRCL calculation 68 ml/min; Estimated Glomerular Filt Rate > 60; Glucose 108 mg/dL (65-110); Sodium 141 mmol/L (137-145)
[2025-05-02 13:31] LABS: CRP < 0.5 mg/dL (<1.0)
[2025-05-02 13:50] LABS: Erythrocyte Sedimentation Rate 11 mm/hr (0-20)
[2025-05-02] MEDS: ceFAZolin SODIUM 1 GM VIAL IV PUSH (14:22)
[2025-05-02] MEDS: PIPERACILLN/TAZ 3.375GM/NS50ML 3.375 GM/50 ML BAG IVPB (15:21)
[2025-05-02] MEDS: CLINDAMYCIN 900 MG/D5W 50 ML 900 MG/50 ML PIGGYBACK 50 MG IVPB (15:21)
[2025-05-02 15:55] VITALS: BP 118/68; PULSE 73; RESP 18; O2SAT 96
== END 2025-05-02 15:57 | disposition home or self-care (01) ==
PROVIDERS: Emergency Provider Emergency Medicine; PCP Physician Assistant Medical
DX: T82.7XXA Infection and inflammatory reaction due to other cardiac and vascular devices, implants and grafts, initial encounter (principal); Z85.3 Personal history of malignant neoplasm of breast; Z87.891 Personal history of nicotine dependence; J43.9 Emphysema, unspecified
CPT/HCPCS: 36415; 71045; 80053; 85025; 85652; 86140; 96365; 96368; 96375; 99284; J0690; J2543

== ENCOUNTER 2025-09-15 10:56 | Outpatient (CLI) | payer MEDICARE, SELFPAY ==
--- NOTE | ~2025-09-15 | MR_ITS ---
MR breast BI wo/w con 09/20/2025 07:41 MANAGER PROGRAMS INDICATION: Malignant neoplasm of the right breast. TECHNIQUE: MRI of the breasts perform using standard protocol pre-and post IV contrast with the following sequences: Axial T2 STIR, axial T1, axial vibrant T1 with fat suppression precontrast and multiphasic postcontrast. 10 cc MultiHance administered intravenously. COMPARISON: Comparison to multiple prior studies sequentially, with oldest reviewed study dated 11/29/2021. FINDINGS: Right breast: There are no abnormalities on the precontrast sequences. There is moderate background parenchymal enhancement. There are no suspicious masses or enhancement in the right breast. Correlate for history of prior treatment, i.E. lumpectomy and radiation therapy. There are enlarged right axillary lymph nodes with some of the lymph nodes having effaced fatty hilum, suspicious for metastatic disease. LEFT BREAST: No signal abnormalities on precontrast sequences. There is moderate background parenchymal enhancement. There is extensive nodular enhancement of the left breast, although likely background enhancement correlation with complete left breast ultrasound recommended to exclude underlying mass, particularly in view of contralateral breast cancer. No evidence of signal abnormalities in the axillary or internal mammary node distributions. IMPRESSION: 1: Right breast: Enlarged right axillary lymph nodes with effacement of the fatty hilum, suspicious for metastatic disease from known malignancy. BI-RADS category 6- Known biopsy proven malignancy: Appropriate action should be taken. 2: Left breast: Extensive nodular enhancement of the left breast which may represent background enhancement, although in view of contralateral breast cancer, correlation with complete left breast ultrasound recommended. BI-RADS CATEGORY 0 - INCOMPLETE STUDY, NEED ADDITIONAL IMAGING EVALUATION. Reviewed, dictated and finalized at location B. GER PROGRAMS IMPRESSION: 1: Right breast: Enlarged right axillary lymph nodes with effacement of the fa tty hilum, suspicious for metastatic disease from known malignancy. BI-RADS cat egory 6- Known biopsy proven malignancy: Appropriate action should be taken. 2: Left breast: Extensive nodular enhancement of the left breast which may rep resent background enhancement, although in view of contralateral breast cancer, correlation with complete left breast ultrasound recommended. BI-RADS CATEGORY 0 - INCOMPLETE STUDY, NEED ADDITIONAL IMAGING EVALUATION.
--- OUTSIDE RECORDS SUMMARY | 2025-09-16 10:38 | XMS_ITS | Encounter Summary ---
Author Organization [facility] Facility Care Team Providers Care Senior Scheduler Name Role Phone Leonard Morales MD Primary Care Provider [phone] Kyle Rodriguez Primary Care Provider [phone] Lloyd Carrasco MD Unavailable [phone] Encounter Details Date Type Department Care Team (Latest Contact Info) Description 01/14/2019 Orders Only [facility] CLINCONV Provider, MD Dominga [address] [place] [id number] Social History Tobacco Use Types Packs/Day Years Used Date Smoking Tobacco: Never Assessed Comments Unknown Sex and Gender Information Value Date Recorded Sex Assigned at Not on file Legal Sex Female 10:[address] LIGHT INSPECTOR Gender Identity Female 04/26/2022 10:45 AM CDT Sexual Orientation Straight 04/26/2022 10 :45 AM CDT documented as of this encounter Plan of Treatment Not on file documented as of this encounter Procedures Procedure Name Priority Date/Time Associated Diagnosis Comments SCAN - LABS 01/15/2019 12:[address] LIGHT INSPECTOR SCAN - LABS 01/15/2019 12:[address] LIGHT INSPECTOR documented in this encounter Results * SCAN - LABS (01/15/2019 12:[address] LIGHT INSPECTOR) Narrative 01/15/2019 12:[address] LIGHT INSPECTOR Ordered by an unspecified provider. Historical Provider Final Res ult * SCAN - LABS (01/15/2019 12:[address] LIGHT INSPECTOR) Narrative 01/15/2019 12:[address] LIGHT INSPECTOR Ordered by an unspecified provider. us Historical Provider Final Res ult documented in this encounter Visit Diagnoses Not on filedocumented in this encounter Care Teams Senior Scheduler Relationship Specialty Start Date End Date Leonard Morales MD PCP - General Family Medicine 01/31/19 08/07/22 Kyle Rodriguez PA [address] [place] [address] [place] [id number] PCP - General Family Medicine 08/08/22 Lloyd Carrasco MD [address] [place] [address] [place] [phone] Dermatology 02/24/24 documented as of this encounter
--- OUTSIDE RECORDS SUMMARY | 2025-09-16 10:38 | XMS_ITS | Clinical Summary ---
Author Organization [facility] [address] [place] [address] Address [address] [place] [address] Care Team Providers Care Handle Attacher Name Role Phone Kyle Rodriguez Primary Care Provider [phone] Lloyd Carrasco MD Unavailable [phone] Allergies Active Allergy Reactions Criticality Noted Date Comments Tissue Adhesive Rash Medium 07/05/2025 Medications ALPRAZolam (XANAX) 0.5 mg tabletIndicatio ns:Anxiety Take 1 tablet (0.5 mg total) by mouth daily as needed for anxiety 30 tablet 02/24/2024 Active Active Problems Problem Noted Date Diagnosed Date Acute superficial gastritis without hemorrhage 0 07/05/2025 Kyphoscoliosis deformity of spine 08/26/2023 DDD (degenerative [...] diet. Assessment & Plan (09/18/2021 2:30 PM SURGERY SCHEDULER): Chronic Work on diet and exercise. Repeat lipid panel in 6 mo. ANA (generalized anxiety disorder) 11/13/2019 Assessment & Plan (08/31/2024 11:07 PM CDT): Chronic Stable Continue xanax prn Assessment & Plan (11/14/2021 2:57 PM SURGERY SCHEDULER): Chronic Stable Continue xanax prn Assessment & Plan (01/27/2021 10:36 AM CDT): Chronic condition improved with use of buspirone. Continue with current regimen including BuSpar and Viibryd. Assessment & Plan (12/09/2020 9:09 AM SURGERY SCHEDULER): Refill xanax with #15 Start buspar 7.5mg bid for 1 week then increase 2tablets bid, Second script at 15mg bid Assessment & Plan (12/25/2019 10:09 AM SURGERY SCHEDULER): Start buspar 7.5mg bid She has not taken any xanax in the past 4 weeks. Assessment & Plan (11/13/2019 10:47 AM SURGERY SCHEDULER): Xanax 0.5mg every day prn #5 Flexural eczema 11/13/2019 Assessment & Plan (11/14/2021 2:52 PM SURGERY SCHEDULER): Chronic condition with current exerbation Start betamethasone lotion Assessment & Plan (11/13/2019 10:47 AM SURGERY SCHEDULER): Start betamethasone diproprionate oint Abnormal mammogram of left breast 01/16/2019 Age-related cataract of both eyes 09/12/2018 Grief at loss of child 09/12/2018 Assessment & Plan (12/25/2019 10:09 AM SURGERY SCHEDULER): Refer to [facility] counseling Assessment & Plan (11/13/2019 10:47 AM SURGERY SCHEDULER): Start viibryd starter stephanie and copay card Encounters Date Type Department Care Team Description 07/05/2025 12:45 PM CDT Office Visit [facility] Family Medicine at [address] [phone] Kyle Rodriguez PA Age-related osteoporosis without current pathological fracture (Primary Dx); Acute superficial gastritis without hemorrhage; ANA (generalized anxiety disorder); Pure hypercholesterolemia from Last 3 Months Immunizations [...] more points, staff should administer the PHQ-9) 0 07/05/2025 PHQ-9 Answer Date Recorded PHQ-9 Total Score 6 03/08/2025 Comments No Sex and Gender Information Value Date Recorded Sex Assigned at Not on file Legal Sex Female 10:10 PM SURGERY SCHEDULER Gender Identity Female 04/26/2022 10:45 AM CDT Sexual Orientation Straight 04/26/2022 10 :45 AM CDT Obstetrics History Para Term AB IAB SAB Ectopic Multiple Livin g Live Births 2 2 2 Date Outcome GA Total Labor Labor/2nd/3rd Weight Sex Type Anes PTL Gisel A1 A5 Name Clin Term Term Last Filed Vital Signs Vital Sign Reading Time Taken Comments Blood Pressure 110/64 07/05/2025 12:47 PM CDT Pulse 79 07/05/2025 12:47 PM CDT Temperature 36.7 C (98.1 F) 07/05/2025 12:47 PM CDT Respiratory Rate 16 07/05/2025 12:47 PM CDT Oxygen Saturation 98% 07/05/2025 12:47 PM CDT Inhaled Oxygen Concentration - - Weight 53.7 kg (118 lb 6.4 oz) 07/05/2025 12:47 PM CDT Height 165.1 cm (5' 5) 07/05/2025 12:47 PM CDT Body Mass Index 19.7 07/05/2025 12:47 PM CDT Plan of Treatment Health Maintenance Due Date Last Done Comments DTaP/Tdap/Td Vaccine (1 - Tdap) 1967 Hepatitis B Screening 1974 Pneumococcal vaccine 65+ (1 of 2 - PCV) 1975 Zoster Vaccine (1 of 2) 1975 Covid-19 Vaccine (5 - 2024-2 6 season) 2025 03/30/2022, 10/18/2021, 12/13/2020, Additional history exists Influenza Vaccine (#1) 2025 Breast Cancer Screening-Mammogram 07/27/2025 07/27/2024, 07/25/2023, 11/29/2021, Additional history exists Fall Risk Assessment 03/08/2026 03/08/2025, 02/24/2024, 02/18/2023, Additional history exists Well Visit 65+ 03/08/2026 03/08/2025, 02/09, 02/18/2023, Additional history exists Colon Cancer Screening-DNA Stool 04/21/2026 04/21/20 23, 03/19/2020 Depression Screening 07/05/2026 07/05/2025, 03/08/2025, 03/08/2025, Additional history exists Osteoporosis Screening-Bone Density Scan 08/26/2026 08/26/2024, 03/23/2022 Hepatitis C Screening Completed 08/31/2021 Colon Cancer Screening-FIT Discontinued 04/21/2023, Procedures Procedure Name Priority Date/Time Associated Diagnosis Comments DEXA AXIAL SKELETON BONE DENSITY 1 OR [...] Recently Relevant to Health Maintenance Results * Dexa Axial Skeleton Bone Density 1 or 2 Site (08/26/2024 3:37 PM CDT) Anatomical Region Laterality Modality Body N/A Mammography 08/26/2024 6:31 PM CDT Narrative 08/26/2024 6:32 PM CDT EXAM DESCRIPTION: DEXA AXIAL SKELETON BONE DENSITY 1 OR MORE SITES REASON FOR STUDY: 69 y/o year old F with given history of: Post menopausal status. Patient has taken/is taking vitamin-D and calcium. Nca Certified Concierge/Model: vip.com A (S/N [id number]) CLINICAL INFORMATION: Current height: 64 inches Maximum [...] Bonnie Travis M.D. TW: TW Report ID: [id number] Reading Location: [id number] Procedure Note Bonnie Travis MD - 08/26/2024 EXAM DESCRIPTION: DEXA AXIAL SKELETON BONE DENSITY 1 OR MORE SITES REASON FOR STUDY: 69 y/o year old F with given history of: Post menopausal status. Patient has taken/is taking vitamin-D and calcium. Nca Certified Concierge/Model: vip.com A (S/N [id number]) CLINICAL INFORMATION: Current height: 64 inches Maximum [...] Bonnie Travis M.D. TW: FLORI Report ID: [id number] Reading Location: [id number] Kyle KILGORE DXA PROCEDURES Final Result * Screening Mammogram [...] age 40, based on guidelines of the [place] [employer] (ACR Practice Parameter for the Performance of Screening and Diagnostic Mammography) and [place] [employer] Obstetricians and Gynec[employer]. For women [...] CDT) Stool DNA - Cologuard Negative Negative [facility] (CLIA #:[id number]) Comment: NEGATIVE TEST RESULT. A negative Cologuard [...] Hernandez et al, N Engl J Med 2014;370(14):2544-3534) The normal value (reference range) for this assay is negative. COLOGUARD RE-SCREENING RECOMMENDATION: Periodic colorectal cancer screening is an important part of preventive healthcare for asymptomatic individuals at average risk for colorectal cancer. Following a negative Cologuard result, the [place] Cancer Society and U.S. Multi-Society Task Force screening guidelines recommend a Cologuard re-screening interval of 3 years. References: [place] [employer] Guideline for Colorectal Cancer Screening: https://www.cancer.org/cancer/xppbv-cpdwxz-osbsae/wjjyqgzyd-zbkgtefpz-pqoqjev/ac s-rec ommendations.html.; Jake DK, Cece WATKINS, Jayde NavasK, Colorectal Cancer Screening: Recommendations for Physicians and Patients from the U.S. Multi-Society Task Force on Colorectal Cancer Screening , Am J Gastroenterology 2017; 112:8956-9644. TEST DESCRIPTION: Composite algorithmic analysis of stool [...] (Esteban Velez al, N Engl J Med 2014;370(14):5932-8415.) Cologuard may produce a false negative or false positive result (no colorectal cancer or precancerous polyp present at colonoscopy follow up). A negative Cologuard test result does not guarantee the absence of CRC or advanced adenoma (pre-cancer). The current Cologuard screening interval is every 3 years. ([place] [employer] Society and U.S. Multi-Society Task Force). Cologuard performance data in a 10,000 patient pivotal study using colonoscopy as the reference method can be accessed at the following location: www.Depositphotos/results. Additional description of the Cologuard test process, warnings and precautions can be found at www.cologBlueTalonrd.Rentalroost.com. Stool 04/21/2023 6:30 AM CDT 04/23/2023 5:11 PM CDT Kyle KAT [facility] BODY FLUIDS AND STOOLS [facility] Final Result [facility] (CLIA #:[id number]) [address] [place] [address] * Hepatitis C antibody (08/31/2021 9:45 AM CDT) Pathologist [facility] [place] Hep C Ab <0.1 0.0 - 0.9 s/co ratio [facility] - 01 Comment: Negative: < 0.8 Indeterminate: 0.8 - 0.9 Positive: > 0.9 The CDC recommends that a positive HCV antibody result be followed up with a HCV Nucleic Acid Amplification test (175775). Blood specimen (specimen) 08/31/2021 9:45 AM CDT 08/31/2021 Narrative [facility] - 09/01/2021 5:07 AM CDT Performed at: [address] [place] [id number] Tree Killer: Albert Shore PhD, Phone: [phone] us Kyle [facility] MICROBIOLOGY - GENERAL [facility] Final Result [facility] - 01 from Last 3 Months or Most Recently Relevant to Health Maintenance Insurance MEDICARE [place] [address] Care Teams Handle Attacher Relationship Specialty Start Date End Date Kyle Rodriguez PA [address] [facility] [place] [address] PCP - General Family Medicine 08/08/22 Lloyd Carrasco MD [address] [facility] [address] [place] [address] [place] [address] Dermatology 02/24/24
--- OUTSIDE RECORDS SUMMARY | 2025-09-16 10:38 | XMS_ITS | Clinical Summary ---
Author Organization [facility] Address [facility] [place] [address] Care Team Providers Care Gi Asst Name Role Phone Leonard Morales MD Primary Care Provider [phone] Immunizations Immunization Administration Dates Next Due MODERNA [...] 2006 Dexa Scan (General) 2021 COVID-19 Vaccine (3 - 2024-2 6 season) 2025 12/13/2020, 11/15/2020 Influenza Adult (#1) 2025 RSV Immunization or 60+ Years (1 - 1-dose 75+ series) 2031 Hepatitis A Vaccines Aged Out No long er eligible based on patient's age to complete this topic Meningococcal B Vaccine Aged Out No l onger eligible based on patient's age to complete this topic Meningococcal Vaccine Aged Out No lorenzo manisha eligible based on patient's age to complete this topic RSV Immunizations Under 20 Months Aged Out No longer eligible b ased on patient's age to complete this topic Care Teams Gi Asst Relationship Specialty Start Date End Date Leonard Morales MD PCP - General 04/10/16
--- OUTSIDE RECORDS SUMMARY | 2025-09-16 10:38 | XMS_ITS | Encounter Summary ---
Author Organization [facility] Healthcare Address [address] [place] [address] Care Team Providers Care Environmental Sciences Professor Name Role Phone Kyle Rodriguez Primary Care Provider [phone] Lloyd Carrasco MD Unavailable [phone] Encounter Details Date Type Department Care Team (Late st Contact Info) Description 04/23/2025 Orders Only [facility] [place] Health Information Management [address] [place] [id number] Scanning, Provider Social History Tobacco Use Types Packs/Day Years [...] on file Legal Sex Female 10:10 PM PRIVATE EQUITY ANALYST Gender Identity Female 04/26/2022 10:45 AM CDT Sexual Orientation Straight 04/26/2022 10 :45 AM CDT documented as of this encounter Plan of Treatment Not on file documented as of this encounter Procedures Procedure Name Priority Date/Time Associated Diagnosis Comments CARDIOLOGY DOCUMENT SCAN 04/23/2025 documented in this encounter Results * Cardiology Document Scan (04/23/2025) Anatomical Region Laterality Modality Other us Provider Scanning CV CARDIAC SERVICES PROCEDURES Final Result documented in this encounter Visit Diagnoses Not on filedocumented in this encounter Care Teams Environmental Sciences Professor Relationship Specialty Start Date End Date Kyle Rodriguez PA [address] [facility] [address] [place] [address] [place] [id number] PCP - General Family Medicine 08/08/22 Lloyd Carrasco MD [address] [facility] [address] [place] [address] Dermatology 02/24/24 documented as of this encounter
--- OUTSIDE RECORDS SUMMARY | 2025-09-16 10:38 | XMS_ITS | Encounter Summary ---
Author Organization [facility] Address 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) Procedures NM [place] [address] [address] [facility] [address] [place] [address] Phone: tel: fax: Referral ID Status Reason Start Date Expiration Date V isits Requested Visits Authorized [id number] Authorized 09/14/2025 10/15/2026 1 1 AND TROLLEY DISPATCHER Encounter Details Date Type Department Care Team (Late st Contact Info) Description 09/14/2025 Prep for Surgery [facility] Breast Surgery Raul Quezada [address] [address] [facility] [address] [place] [address] [place] [address] [address] [facility] [address] [place] [address] Malignant neoplasm of right female breast, unspecified estrogen receptor status, unspecified site of breast (CMS/HCC) (Primary Dx); 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) Social History Tobacco Use Types Packs/Day Years Used Date Smoking Tobacco: Never Smokeless Tobacco: Never Alcohol Use Standard Drinks/Week Comments Yes 0 (1 standard drink = 0.6 oz pur e alcohol) occasional Comments Unknown Sex and Gender Information Value Date Recorded Sex Assigned at Not on file Legal Sex Female 8:44 AM CDT Gender Identity Not on file Sexual Orientation Not on file documented as of this encounter Plan of Treatment Upcoming Encounters Date Type Department Care Team (Late st Contact Info) Description 09/20/2025 2:00 PM BUS AND TROLLEY DISPATCHER Office Visit [facility] Plastic Surgery at the [facility] [address] [place] [address] Abhijit Callahan MD [address] [facility] [address] [place] [address] 10/12/2025 7:00 AM BUS AND TROLLEY DISPATCHER Appointment [facility] RAUL QUEZADA [address] [facility] [address] [place] [phone] Akosua Ko, Occupational Therapist 10/20/2025 9:45 AM BUS AND TROLLEY DISPATCHER Office Visit [facility] Oncology and Hematology - [place] [address] [facility] [address] [place] [phone] Deandre Duff MD [address] [facility] [address] [place] [address] 11/16/2025 9:00 AM BUS AND TROLLEY DISPATCHER Appointment [facility] RAUL QUEZADA [address] [facility] [address] [place] [address] Sabine Freeman, Laboratory Chemist 11/26/2025 10:00 AM BUS AND TROLLEY DISPATCHER Appointment [facility] RAUL QUEZADA [address] [facility] [address] [place] [address] Sabine Freeman, Laboratory Chemist 12/03/2025 10:00 AM BUS AND TROLLEY DISPATCHER Appointment [facility] RAUL QUEZADA [address] [address] [place] [address] Elisa Smith, Laboratory Chemist 12/10/2025 10:00 AM BUS AND TROLLEY DISPATCHER Appointment 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) 1 Occurrences starting 09/14/2025 until 09/14/2026 Scheduled Procedures Name Priority Associated Diagnoses Date/Ti me BREAST MASTECTOMY SIMPLE BILATERAL Malignant neoplasm of right female breast, unspecified estrogen receptor status, unspecified site of breast (CMS/HCC) 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) SENTINEL LYMPH NODE BIOPSY MAPPING Malignant neoplasm of right female breast, unspecified estrogen receptor status, unspecified site of breast (CMS/HCC) 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
--- OUTSIDE RECORDS SUMMARY | 2025-09-16 10:38 | XMS_ITS | Encounter Summary ---
Author Organization [facility] Address [address] [place] [address] Care Team Providers Care Component Engineer Name Role Phone Unavailable Primary Care Provider Unavailabl e Encounter Details Date Type Department Care Team (Late st Contact Info) Description 09/14/2025 Chart Note [facility] Breast Surgery Raul Barragan [address] [place] [address] Vianney Granger, RN Social History Tobacco Use Types Packs/Day Years [...] st Contact Info) Description 09/20/2025 2:00 PM HOTEL CASINO FLOORPERSON Office Visit [facility] Plastic Surgery at the [facility] Medicine [address] [place] [address] Abhijit Callahan MD [address] [facility] [address] [place] [address] 10/12/2025 7:00 AM HOTEL CASINO FLOORPERSON Appointment [facility] RAUL BARRAGAN [address] [address] [place] [address] Akosua Ko, Occupational Therapist 10/20/2025 9:45 AM HOTEL CASINO FLOORPERSON Office Visit [facility] Oncology and Hematology - [place] [address] [facility] [address] [place] [address] Deandre Duff MD [address] [facility] [address] [place] [address] 11/16/2025 9:00 AM HOTEL CASINO FLOORPERSON Appointment [facility] RAUL BARRAGAN [address] [place] [address] Sabine Freeman, Twister Frame Tender 11/26/2025 10:00 AM HOTEL CASINO FLOORPERSON Appointment [facility] RAUL BARRAGAN [address] [place] [address] Sabine Freeman, Twister Frame Tender 12/03/2025 10:00 AM HOTEL CASINO FLOORPERSON Appointment [facility] RAUL DAMIEN [address] [place] [address] Elisa Smith, Twister Frame Tender 12/10/2025 10:00 AM HOTEL CASINO FLOORPERSON Appointment [facility] RAUL DAMIEN [address] [place] [address] Sabine Freeman, Twister Frame Tender Scheduled Procedures Name Priority Associated Diagnoses Date/Ti [...]
--- OUTSIDE RECORDS SUMMARY | 2025-09-16 10:38 | XMS_ITS | Encounter Summary ---
Author Organization [facility] [employer] [facility] Address [address] [place] [address] Care Team Providers Care Director Of Quality Control Name Role Phone Unavailable Primary Care Provider Unavailabl e Encounter Details Date Type Department Care Team (Late st Contact Info) Description 09/13/2025 Orders Only [facility] Oncology and Hematology - [place] [address] [facility] [address] [place] [address] Deandre Duff MD [address] [facility] [address] [place] [address] Malignant neoplasm of upper-outer quadrant of right breast in female, estrogen receptor positive (CMS/HCC) Social History Tobacco Use Types Packs/Day [...] st Contact Info) Description 09/20/2025 2:00 PM EXPLOSIVE OPERATOR BOMB Office Visit [facility] Plastic Surgery at the [facility] [address] [place] [address] Abhijit Callahan MD [address] [facility] [address] [place] [address] 10/12/2025 7:00 AM EXPLOSIVE OPERATOR BOMB Appointment [facility] RAUL DAMIEN [address] [address] [place] [address] Akosua Ko, Occupational Therapist 10/20/2025 9:45 AM EXPLOSIVE OPERATOR BOMB Office Visit [facility] Oncology and Hematology - [place] [address] [facility] [address] [place] [address] Deandre Duff MD [address] [facility] [address] [place] [address] 11/16/2025 9:00 AM EXPLOSIVE OPERATOR BOMB Appointment [facility] RAUL DAMIEN [address] [address] [place] [address] Sabine Freeman, Director Veterinary 11/26/2025 10:00 AM EXPLOSIVE OPERATOR BOMB Appointment [facility] RAUL DAMIEN [address] [address] [place] [address] Sabine Freeman, Director Veterinary 12/03/2025 10:00 AM EXPLOSIVE OPERATOR BOMB Appointment [facility] RAUL PETERSON [address] [address] [place] [address] Elisa Smith, Director Veterinary 12/10/2025 10:00 AM EXPLOSIVE OPERATOR BOMB Appointment [facility] RAUL PETERSON [address] [address] [place] [address] Sabine Freeman, Director Veterinary Scheduled Procedures Name Priority Associated Diagnoses Date/Ti [...] encounter Visit Diagnoses Diagnosis Malignant neoplasm of upper-outer quadrant of right breast in female, estrogen receptor positive (CMS/HCC) documented in this encounter
--- OUTSIDE RECORDS SUMMARY | 2025-09-16 10:38 | XMS_ITS | Clinical Summary ---
[facility] Address [address] [place] [address] Care Team Providers Care Semiautomatic Stitcher Operator Name Role Phone Unavailable Primary Care Provider Unavailabl e Allergies Active Allergy Reactions Criticality Noted Date Comments Haptens - Plastic And Glue Series Rash High 06/28/2025 dermatitis/rash after skin adhesive when port implanted.. Medications ALPRAZolam (XANAX) 0.5 mg tablet Take 0.5 mg by mouth. 4 Active lidocaine-prilo narinder (EMLA) 2.5-2.5 % CreamIndication s:Malignant neoplasm of upper-outer quadrant of right breast in female, estrogen receptor positive (CMS/HCC) Apply a quarter size amount to port site 30 minutes before access. 30 Gram 1 5 Active Additional Information Patient not taking.Reported on 09/14/2025 ondansetron (ZOFRAN ODT) 8 mg Tablet, Rapid DissolveIndicat ions:Malignant neoplasm of upper-outer quadrant of right breast in female, estrogen receptor positive (CMS/HCC) Dissolve 1 tablet on top of tongue then swallow with saliva every 8 hours as needed for nausea or vomiting 30 Tablet 1 5 Active dexAMETHasone (DECADRON) 4 mg tablet Take 1 tablet bid starting day before chemo for 3 days 24 Tablet 5 Active Additional Information Patient not taking.Reported on 09/14/2025 famotidine (PEPCID) 10 mg tablet Take 10 mg by mouth 2 times daily. Active loratadine (CLARITIN) 10 mg tablet Take 10 mg by mouth daily. 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) 09/14/2025 Chart Note [facility] Breast Surgery Raul Barragan [address] [address] [facility] [address] [place] [address] Vianney Granger RN 09/14/2025 Prep for Surgery [facility] Breast Surgery Raul Barragan [address] [address] [facility] [address] [address] Lilliam Interiano MD Malignant neoplasm of right female breast, unspecified estrogen receptor status, unspecified site of breast (CMS/HCC) (Primary Dx); 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) 09/13/2025 Orders Only [facility] Oncology and Hematology - [place] [address] [place] [address] Deandre Duff MD Malignant neoplasm of upper-outer quadrant of right breast in female, estrogen receptor positive (CMS/HCC) 09/09/2025 Orders Only [facility] Oncology and Hematology [place] [address] [place] [address] Deandre Duff MD 09/08/2025 9:00 AM CDT Office Visit [facility] Oncology and Hematology - [place] [address] [place] [address] Deandre Duff MD Malignant neoplasm of upper-outer quadrant of right breast in female, estrogen receptor positive (CMS/HCC) (Primary Dx) 09/08/2025 Orders Only [facility] Breast Surgery Raul Barragan [address] [address] [facility] [address] [address] Provider, Abstract 09/06/2025 Chart Note [facility] Raul Barragan [address] [place] [address] Kriss Khan 09/03/2025 Orders Only [facility] Breast Surgery Raul Barragan [address] [place], [place] [address] Provider, Abstract 09/02/2025 Orders Only [facility] Oncology and Hematology - [place] [address] [place] [address] Deandre Duff MD 09/01/2025 External Device Data STL ABSTRACTION Provider, Abstract 08/31/2025 External Device Data STL ABSTRACTION Provider, Abstract 08/30/2025 Orders Only [facility] Oncology and Hematology - [place] [address] [place] [phone] Deandre Duff MD Malignant neoplasm of upper-outer quadrant of right breast in female, estrogen receptor positive (CMS/HCC) 08/26/2025 Orders Only [facility] Oncology and Hematology - [place] [address] [place] [address] Deandre Duff MD 08/25/2025 9:30 AM CDT Office Visit [facility] Oncology and Hematology - [place] Linda [address] [place] [address] Deandre Duff MD Malignant neoplasm of upper-outer quadrant of right breast in female, estrogen receptor positive (CMS/HCC) (Primary Dx) 08/25/2025 Orders Only [facility] Oncology and Hematology - [place] Linda [address] [place] [address] Deandre Duff MD 08/16/2025 Orders Only [facility] Oncology and Hematology - [place] [address] [place] [address] Deandre Duff MD Malignant neoplasm of upper-outer quadrant of right breast in female, estrogen receptor positive (CMS/HCC) 08/13/2025 Orders Only [facility] Oncology and Hematology - [place] [address] [place] [address] Deandre Duff MD 08/11/2025 9:15 AM CDT Office Visit [facility] Oncology and Hematology [facility] [address] [place] [address] Deandre Duff MD Malignant neoplasm of upper-outer quadrant of right breast in female, estrogen receptor positive (CMS/HCC) (Primary Dx) 08/04/2025 Orders Only [facility] Oncology and Hematology - [place] [address] [place] [address] Deandre Duff MD 08/02/2025 Orders Only [facility] Oncology and Hematology - [place] [address] [place] [address] Deandre Duff MD Malignant neoplasm of upper-outer quadrant of right breast in female, estrogen receptor positive (CMS/HCC) 07/29/2025 Orders Only [facility] Oncology and Hematology - [place] [address] [place] [address] Deandre Duff MD 07/28/2025 10:15 AM CDT Office Visit [facility] Oncology and Hematology - [place] [address] [place] [address] Deandre Duff MD Malignant neoplasm of upper-outer quadrant of right breast in female, estrogen receptor positive (CMS/HCC) (Primary Dx) 07/27/2025 External Device Data STL ABSTRACTION Provider, Abstract 07/19/2025 Orders Only [facility] Oncology and Hematology - [place] [address] [place] [address] Deandre Duff MD Malignant neoplasm of upper-outer quadrant of right breast in female, estrogen receptor positive (CMS/HCC) 07/14/2025 Orders Only [facility] Oncology and Hematology - [place] [address] [place] [address] Deandre Duff MD 07/07/2025 8:45 AM CDT Office Visit [facility] Oncology and Hematology - [place] [address] [place] [address] Deandre Duff MD Malignant neoplasm of upper-outer quadrant of right breast in female, estrogen receptor positive (CMS/HCC) (Primary Dx) 07/07/2025 Orders Only [facility] Oncology and Hematology - [place] [address] Deandre Duff MD 07/05/2025 Orders Only [facility] Oncology and Hematology - [place] [address] Deandre Duff MD Malignant neoplasm of upper-outer quadrant of right breast in female, estrogen receptor positive (CMS/HCC) 07/01/2025 Orders Only [facility] Oncology and Hematology - [place] [address] [place] [address] Deandre Duff MD 06/23/2025 8:45 AM CDT Office Visit [facility] Oncology and Hematology - [place] [address] [place] [address] Deandre Duff MD Malignant neoplasm of upper-outer quadrant of right breast in female, estrogen receptor positive (CMS/HCC) (Primary Dx) 06/23/2025 Orders Only [facility] Oncology and Hematology - [place] [address] [place] [address] Deandre Duff MD 06/21/2025 Orders Only [facility] Oncology and Hematology - [place] [address] Deandre Duff MD Malignant neoplasm of upper-outer quadrant of right breast in female, estrogen receptor positive (CMS/HCC) from Last 3 Months Family History Medical History Relation Name Comments No Known Problems Child 1 No Known Problems Child 2 Diabetes Father Prostate Cancer Father Breast Cancer Mother Heart Disease Mother No Known Problems Sister 1 Breast Cancer Sister 2 Breast Cancer Sister 3 Heart Disease Sister 3 Relation Name Status Comments Child 1 Child 2 Alive Father Mother Sister 1 Sister 2 Alive Sister 3 Alive Social History Tobacco Use Types Packs/Day Years Used Date Smoking Tobacco: Never Smokeless Tobacco: Never Tobacco Cessation:Counseling Given: Not Answered Alcohol Use Standard Drinks/Week Comments Yes 0 (1 standard drink = 0.6 oz pur e alcohol) occasional Comments Unknown Sex and Gender Information Value Date Recorded Sex Assigned at Not on file Legal Sex Female 8:44 AM CDT Gender Identity Not on file Sexual Orientation Not on file Last Filed Vital Signs Vital Sign Reading Time Taken Comments Blood Pressure 114/72 09/14/2025 2:43 PM COMMERCIAL INSULATOR Pulse 88 09/08/2025 8:42 AM CDT Temperature 37.1 C (98.7 F) 09/08/2025 8:42 AM CDT Respiratory Rate 15 09/08/2025 8:42 AM CDT Oxygen Saturation 97% 09/08/2025 8:42 AM CDT Inhaled Oxygen Concentration - - Weight 56.2 kg (124 lb) 09/14/2025 2:43 PM COMMERCIAL INSULATOR Height 162.6 cm (5' 4) 09/14/2025 2:43 PM COMMERCIAL INSULATOR Body Mass Index 21.28 09/14/2025 2:43 PM COMMERCIAL INSULATOR Plan of Treatment Upcoming Encounters Date Type Department Care Team (Late st Contact Info) Description 09/20/2025 2:00 PM COMMERCIAL INSULATOR Office Visit [facility] Plastic Surgery at the [facility] [address] [place] [address] Abhijit Callahan MD [address] [facility] [address] [place] [address] 10/12/2025 7:00 AM COMMERCIAL INSULATOR Appointment [facility] SV RAUL BARRAGAN [address] [address] [place] [address] Akosua Ko, Occupational Therapist 10/20/2025 9:45 AM COMMERCIAL INSULATOR Office Visit [facility] Oncology and Hematology - [place] [address] [place] [address] Deandre Duff MD [address] [facility] [address] [place] [phone] 11/16/2025 9:00 AM COMMERCIAL INSULATOR Appointment [facility] RAUL DAMIEN [address] [place] [address] Sabine Freeman, Plastic Surgery Nurse 11/26/2025 10:00 AM COMMERCIAL INSULATOR Appointment [facility] RAUL DAMIEN [address] [place] [address] Sabine Freeman, Plastic Surgery Nurse 12/03/2025 10:00 AM COMMERCIAL INSULATOR Appointment [facility] RAUL BARRAGAN [address] [place] [address] Elisa Smith, Plastic Surgery Nurse 12/10/2025 10:00 AM COMMERCIAL INSULATOR Appointment [facility] RAUL DAMIEN [address] [place] [address] Sabine Freeman, Plastic Surgery Nurse Scheduled Procedures Name Priority Associated Diagnoses Date/Ti [...] breast 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 (CMS/HCC) Health Maintenance Due Date Last Done Comments DTAP/TDAP/TD VACCINES (1 - Tdap) 1975 COLORECTAL SCREENING 2001 Colorectal Cancer Screening 2001 FIT-DNA Q 3 years 2001 FIT/FOBT Q 1 year 2001 Flex Sig/CT Colonography Q 5 years 2001 PNEUMOCOCCAL VACCINE 50+ YEA RS (1 of 1 - PCV) 2006 ZOSTER VACCINE (1 of 2) 2006 INFLUENZA VACCINE (#1) 2025 COVID-19 Vaccine (3 - 2024-2 6 season) 2025 12/13/2020, 11/15/2020 BREAST CANCER SCREENING 04/08/2026 04/08/20 25, 03/24/2025, 03/24/2025, Additional history exists OSTEOPOROSIS SCREENING 08/26/2029 4, 08/26/2024, 03/23/2022 RSV VACCINE (60+ or ) (1 - 1-dose 75+ series) 2031 Procedures Procedure Name Priority Date/Time Associated Diagnosis Comments COMPREHENSIVE METABOLIC PANEL Routine 09/08/2025 12:19 PM CDT COMPREHENSIVE METABOLIC PANEL Routine 09/02/2025 11:56 AM CDT CBC WITH AUTODIFFERENTIAL Routine 2024 12:02 PM CDT COMPREHENSIVE METABOLIC PANEL Routine 08/25/2025 11:40 AM CDT COMPREHENSIVE METABOLIC PANEL Routine 08/11/2025 11:11 AM CDT CBC WITH AUTODIFFERENTIAL Routine 2024 3:53 PM CDT COMPREHENSIVE METABOLIC PANEL Routine 07/28/2025 12:31 PM CDT BASIC METABOLIC PANEL Routine 07/14/2025 3:20 PM CDT COMPREHENSIVE METABOLIC PANEL Routine 07/14/2025 3:17 PM CDT BASIC METABOLIC PANEL Routine 07/07/2025 11:59 AM CDT COMPREHENSIVE METABOLIC PANEL Routine 07/07/2025 11:58 AM CDT CBC WITH AUTODIFFERENTIAL Routine 2024 10:23 AM CDT BASIC METABOLIC PANEL Routine 06/23/2025 12:33 PM CDT COMPREHENSIVE METABOLIC PANEL Routine 06/23/2025 12:30 PM CDT MAMMO DIAG UNI RIGHT 3D RODOLFO W OR WO CAD Routine 04/08/2025 9:44 AM CDT from Last 3 Months or Most Recently Relevant to Health Maintenance Results * COMPREHENSIVE METABOLIC PANEL (09/08/2025 12:19 PM CDT) Only the most recent of8 resultswithin the time period is included. Blood Deandre Duff MD CHEMISTRY ORDERABLES Final Resu lt * CBC WITH AUTODIFFERENTIAL (08/25/2025 12:02 PM CDT) Only the most recent of3 resultswithin the time period is included. Blood Deandre Duff MD HEMATOLOGY ORDERABLES Final Res ult * BASIC METABOLIC PANEL (07/14/2025 3:20 PM CDT) Only the most recent of3 resultswithin the time period is included. Blood Deandre Duff MD CHEMISTRY ORDERABLES Final Resu lt * MAMMO 3D RODOLFO DIAGNOSTIC UNI RT 3D W OR WO CAD (04/08/2025 9:44 AM CDT) Anatomical Region Laterality Modality Breast Right Mammography Abstract Provider MAMMO ORDERABLES Edited Result - Final from Last 3 Months or Most Recently Relevant to Health Maintenance Insurance MEDICARE PART A AND B [employer] MEDICARE SUPP AESSI MEDICARE PART A AND B [employer] MEDICARE SUPP AESSI
== END 2025-09-15 10:57 | disposition home or self-care (01) ==
PROVIDERS: PCP Physician Assistant Medical; Visit Provider Surgery
DX: C50.911 Malignant neoplasm of unspecified site of right female breast (principal)
CPT/HCPCS: 77049; A9577; C8908

== ENCOUNTER 2025-09-30 10:16 | Outpatient (CLI) | payer MEDICARE, SELFPAY ==
--- NOTE | 2025-09-30 10:37 | ECG_ITS ---
Test Date: 2025-09-30 10:46:58 Measurements Intervals [place] Rate: 80 P: 59 [place]: 137 QRS: 64 QRSD: 138 T: 53 QT: 382 QTc: 442 Interpretive Statements SINUS RHYTHM RIGHT BUNDLE BRANCH BLOCK [120+ ms QRS DURATION, UPRIGHT V1, 40+ ms S IN I/aVL/V4/V5/V6] No previous ECG available for comparison Electronically Signed On 09-30-2025 14:44:14 VARNISH BLENDER by Renato Unger M.D.
--- OUTSIDE RECORDS SUMMARY | 2025-09-30 12:27 | XMS_ITS | Clinical Summary ---
Author Organization [facility] Address [facility] [place] [address] Care Team Providers Care Storage Garage Attendant Name Role Phone Leonard Morales MD Primary Care Provider [phone] Immunizations Immunization Administration Dates Next Due MODERNA [...] age to complete this topic Care Teams Storage Garage Attendant Relationship Specialty Start Date End Date Leonard Morales MD PCP - General 04/10/16
--- OUTSIDE RECORDS SUMMARY | 2025-09-30 12:27 | XMS_ITS | Encounter Summary ---
Author Organization [facility] Care Team Providers Care Optical Coating Technician Name Role Phone Leonard Morales MD Primary Care Provider [phone] Kyle Rodriguez Primary Care Provider [phone] Lloyd Carrasco MD Unavailable [phone] Encounter Details Date Type Department Care Team (Latest Contact Info) Description 01/14/2019 Orders Only [facility] CLINCONV ProviderDominga MD [address] [place] [address] Social History Tobacco Use Types Packs/Day Years Used Date Smoking Tobacco: Never Assessed Comments Unknown Sex and Gender Information Value Date Recorded Sex Assigned at Not on file Legal Sex Female 10:10 PM GLUING PRESSMAN Gender Identity Female 04/26/2022 10:45 AM CDT Sexual Orientation Straight 04/26/2022 10 :45 AM CDT documented as of this encounter Functional Status documented as of this encounter Plan of Treatment Not on file documented as of this encounter Procedures Procedure Name Priority Date/Time Associated Diagnosis Comments SCAN - LABS 01/15/2019 12:00 AM GLUING PRESSMAN SCAN - LABS 01/15/2019 12:00 AM GLUING PRESSMAN documented in this encounter Results * SCAN - LABS (01/15/2019 12:00 AM GLUING PRESSMAN) Narrative 01/15/2019 12:00 AM GLUING PRESSMAN Ordered by an unspecified provider. us Historical Provider Final Res ult * SCAN - LABS (01/15/2019 12:00 AM GLUING PRESSMAN) Narrative 01/15/2019 12:00 AM GLUING PRESSMAN Ordered by an unspecified provider. us Historical Provider Final Res ult documented in this encounter Visit Diagnoses Not on filedocumented in this encounter Care Teams Optical Coating Technician Relationship Specialty Start Date End Date Leonard Morales MD PCP - General Family Medicine 01/31/19 08/07/22 Kyle Rodriguez PA [facility] [address] [place] [address] PCP - General Family Medicine 08/08/22 Lloyd Carrasco MD [address] [facility] [address] [place] [address] Dermatology 02/24/24 documented as of this encounter
--- OUTSIDE RECORDS SUMMARY | 2025-09-30 12:28 | XMS_ITS | Clinical Summary ---
[facility] Organization [facility] Address [address] [place] [address] Care Team Providers Care Face Hardener Name Role Phone Unavailable Primary Care Provider [...] Take 10 mg by mouth daily. Active calcium CARBONATE + vitamin D (CALTRATE+D) 600 mg-10 mcg (400 unit) Tablet Take by mouth. Activ e denosumab (PROLIA) 60 mg/mL Syringe Inject 60 mg by subcutaneous injection one time only. Active Active Problems No known active problems Encounters Date Type Department Care Team Description 09/29/2025 Chart Note [facility] Breast Surgery Raul Barragan [address] [phone] Vianney Granger RN 09/28/2025 External Device Data STL ABSTRACTION Provider, Abstract 09/27/2025 Orders Only [facility] Oncology and Hematology [facility] [address] [place] [address] Deandre Duff MD Malignant neoplasm of upper-outer quadrant of right breast in female, estrogen receptor positive (CMS/HCC) 09/24/2025 Orders Only [facility] Oncology and Hematology [facility] [address] [place] [address] Deandre Duff MD 09/23/2025 Orders Only [facility] Breast Surgery Raul Barragan [address] [address] Provider, Abstract 09/23/2025 Chart Note [facility] Breast Surgery Raul Barragan [address] [phone] Vianney Granger RN 09/20/2025 2:00 PM SLACKLINE OPERATOR Office Visit [facility] Plastic Surgery at the LTAC, located within [facility] [address] [facility] [address] [place] [address] Abhijit Callahan MD Encounter to discuss breast reconstruction (Primary Dx); Malignant neoplasm of right female breast, unspecified estrogen receptor status, unspecified site of breast (CMS/HCC) 09/20/2025 10:45 AM SLACKLINE OPERATOR - 09/20/2025 11:59 PM SLACKLINE OPERATOR Hospital Encounter [facility] General Laboratory Services [address] [facility] [address] [place] [address] Lilliam Interiano MD Discharge Disposition: Home or Self Care 09/20/2025 Chart Note [facility] Breast Surgery Raul Barragan [address] [facility] [address] [place] [address] Vianney Granger, SULAIMAN 09/14/2025 2:15 PM SLACKLINE OPERATOR [facility] Raul [place] [facility] [address] [place] [address] Lilliam Interiano MD Malignant neoplasm of right female breast, unspecified estrogen receptor status, unspecified site of breast (CMS/HCC) (Primary Dx); 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) 09/14/2025 Chart Note [facility] Breast Surgery Raul Barragan [address] [address] [facility] [address] [place] [address] Vianney Granger RN 09/14/2025 Prep for Surgery [facility] Breast Surgery [address] [address] [facility] [address] [place] [address] Lilliam Interiano MD Malignant neoplasm of right female breast, unspecified estrogen receptor status, unspecified site of breast (CMS/HCC) (Primary Dx); 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) 09/13/2025 Orders Only [facility] Oncology and Hematology [facility] [address] [place] [address] Deandre Duff MD Malignant neoplasm of upper-outer quadrant of right breast in female, estrogen receptor positive (CMS/HCC) 09/09/2025 Orders Only [facility] Oncology and Hematology [place] [address] [place] [address] Deandre Duff MD 09/08/2025 9:00 AM CDT Office Visit [facility] Oncology and Hematology [facility] [address] [place] [address] Deandre Duff MD Malignant neoplasm of upper-outer quadrant of right breast in female, estrogen receptor positive (CMS/HCC) (Primary Dx) 09/08/2025 Orders Only [facility] Raul Barragan [address] [facility] [address] [place] [address] Provider, Abstract 09/06/2025 Chart Note [facility] Raul [place] [address] [place] [address] Kriss Khan Greg 09/03/2025 Orders Only [facility] Raul [place] [address] [facility] [address] [place] [address] Provider, Abstract 09/02/2025 Orders Only [facility] Oncology and Hematology - [place] [address] [place] [address] Deandre Duff MD 09/01/2025 External Device Data STL ABSTRACTION Provider, Abstract 08/31/2025 External Device Data STL ABSTRACTION Provider, Abstract 08/30/2025 Orders Only [facility] Oncology and Hematology - [place] [address] [place] [address] Deandre Duff MD Malignant neoplasm of upper-outer quadrant of right breast in female, estrogen receptor positive (CMS/HCC) 08/26/2025 Orders Only [facility] Oncology and Hematology - [place] [address] [place] [address] Deandre Duff MD 08/25/2025 9:30 AM CDT Office Visit [facility] Oncology and Hematology - [place] [address] [place] [address] Deandre Duff MD Malignant neoplasm of upper-outer quadrant of right breast in female, estrogen receptor positive (CMS/HCC) (Primary Dx) 08/25/2025 Orders Only [facility] Oncology and Hematology - [place] [address] [place] [address] Deandre Duff MD 08/16/2025 Orders Only [facility] Oncology and Hematology - [place] [address] [place] [phone] Deandre Duff MD Malignant neoplasm of upper-outer quadrant of right breast in female, estrogen receptor positive (CMS/HCC) 08/13/2025 Orders Only [facility] Oncology and Hematology - [place] [address] [place] [phone] Deandre Duff MD 08/11/2025 9:15 AM CDT Office Visit [facility] Oncology and Hematology - [place] [address] [place] [address] Deandre Duff MD Malignant neoplasm of upper-outer quadrant of right breast in female, estrogen receptor positive (CMS/HCC) (Primary Dx) 08/04/2025 Orders Only [facility] Oncology and Hematology - [place] [address] [place] [address] Deandre Duff MD 08/02/2025 Orders Only [facility] Oncology and Hematology - [place] [address] [place] [address] Deandre Duff MD Malignant neoplasm of upper-outer quadrant of right breast in female, estrogen receptor positive (CMS/HCC) 07/29/2025 Orders Only [facility] Oncology and Hematology - [place] [address] [place] [address] Deandre Duff MD 07/28/2025 10:15 AM CDT Office Visit [facility] Oncology and Hematology - [place] [address] [place] [address] Deandre Duff MD Malignant neoplasm of upper-outer quadrant of right breast in female, estrogen receptor positive (CMS/HCC) (Primary Dx) 07/27/2025 External Device Data STL ABSTRACTION Provider, Abstract 07/19/2025 Orders Only [facility] Oncology and Hematology - [place] [address] [place] [address] Deandre Duff MD Malignant neoplasm of upper-outer quadrant of right breast in female, estrogen receptor positive (CMS/HCC) 07/14/2025 Orders Only [facility] Oncology and Hematology - [place] [address] [place] [address] Deandre Duff MD 07/07/2025 8:45 AM CDT Office Visit [facility] Oncology and Hematology - [place] [address] [place] [address] Deandre Duff MD Malignant neoplasm of upper-outer quadrant of right breast in female, estrogen receptor positive (CMS/HCC) (Primary Dx) 07/07/2025 Orders Only [facility] Oncology and Hematology - [place] [address] [place] [address] Deandre Duff MD 07/05/2025 Orders Only [facility] Oncology and Hematology - [place] [address] [place] [address] Deandre Duff MD Malignant neoplasm of upper-outer quadrant of right breast in female, estrogen receptor positive (CMS/HCC) 07/01/2025 Orders Only [facility] Oncology and Hematology - [place] [address] [place] [address] Deandre Duff MD from Last 3 Months Family History Medical [...] Not Answered Alcohol Use Standard Drinks/Week Comments Not Currently 0 (1 standard drink = 0.6 oz pur e alcohol) occasional Food Insecurity Answer Date Recorded Patient needs follow up regardin 09/29/2025 Transportation Needs Answer Date Record ed Patient needs follow up regardin 09/29/2025 Utility Needs Answer Date Recorded Patient needs follow up regardin 09/29/2025 Comments No Sex and Gender Information Value Date Recorded Sex Assigned at Not on file Legal Sex Female 8:44 AM CDT Gender Identity Not on file Sexual Orientation Not on file Last Filed Vital Signs Vital Sign Reading Time Taken Comments Blood Pressure 122/70 09/20/2025 2:00 PM SLACKLINE OPERATOR Pulse 88 09/08/2025 8:42 AM CDT Temperature 37.1 C (98.7 F) 09/08/2025 8:42 AM CDT Respiratory Rate 15 09/08/2025 8:42 AM CDT Oxygen Saturation 97% 09/08/2025 8:42 AM CDT Inhaled Oxygen Concentration - - Weight 55.8 kg (123 lb) 09/29/2025 10:38 AM SLACKLINE OPERATOR Height 162.6 cm (5' 4) 09/29/2025 10:38 AM SLACKLINE OPERATOR Body Mass Index 21.11 09/29/2025 10:38 AM SLACKLINE OPERATOR Plan of Treatment Upcoming Encounters Date Type Department Care Team (Late st Contact Info) Description 10/12/2025 7:00 AM SLACKLINE OPERATOR Appointment [facility] [address] [place] [phone] Akosua Ko, Occupational Therapist 10/13/2025 6:30 AM SLACKLINE OPERATOR Appointment [facility] Nuclear Medicine Lab Testing [address] [place] [address] [place] [address] [address] [place] [phone] 10/13/2025 7:17 AM SLACKLINE OPERATOR Hospital Encounter [facility] [address] [place] [address] [place] [address] [address] [place] [address] Malignant neoplasm of right female breast, unspecified estrogen receptor status, unspecified site of breast (CMS/HCC) 10/13/2025 7:17 AM SLACKLINE OPERATOR - 10/13/2025 12:37 PM SLACKLINE OPERATOR Surgery [facility] [address] [place] [phone] [place] [address] [facility] [address] [place] [phone] BREAST MASTECTOMY SIMPLE BILATERAL 10/18/2025 9:30 AM SLACKLINE OPERATOR Office Visit [facility] Plastic Surgery at the LTAC, located within [facility] [address] [facility] [address] [place] [address] Abhijit Callahan MD [address] [facility] [address] [place] [address] 10/20/2025 9:45 AM SLACKLINE OPERATOR Office Visit [facility] Oncology and Hematology - [place] [address] [facility] [address] [place] [address] Deandre Duff MD [address] [facility] [address] [place] [address] 11/16/2025 9:00 AM SLACKLINE OPERATOR Appointment [facility] [address] [place] [address] Sabine Freeman, Temperature Control Inspector 11/26/2025 10:00 AM SLACKLINE OPERATOR Appointment [facility] [address] [place] [address] Sabine Freeman, Temperature Control Inspector 12/03/2025 10:00 AM SLACKLINE OPERATOR Appointment [facility] [address] [place] [address] Elisa Smith, Temperature Control Inspector 12/10/2025 10:00 AM SLACKLINE OPERATOR Appointment [facility] [address] [place] [address] Sabine Freeman, Temperature Control Inspector Scheduled Procedures Name Priority Associated Diagnoses Date/Ti me BREAST MASTECTOMY SIMPLE BILATERAL Malignant neoplasm of right female breast, unspecified estrogen receptor status, unspecified site of breast (CMS/HCC) 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) 10/13/2025 7:17 AM SLACKLINE OPERATOR SENTINEL LYMPH NODE BIOPSY MAPPING Malignant neoplasm of right female breast, unspecified estrogen receptor status, unspecified site of breast (CMS/HCC) 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) 10/13/2025 7:17 AM SLACKLINE OPERATOR AXILLARY LYMPH NODE DISSECTION Malignant neoplasm of right female breast, unspecified estrogen receptor status, unspecified site of breast (CMS/HCC) 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) 10/13/2025 7:17 AM SLACKLINE OPERATOR BREAST TISSUE COFFEE WEIGHER INSERTION Malignant neoplasm of right female breast, unspecified estrogen receptor status, unspecified site of breast (CMS/HCC) 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) 10/13/2025 7:17 AM SLACKLINE OPERATOR Health Maintenance Due Date Last Done Comments [...] Procedure Name Priority Date/Time Associated Diagnosis Comments PATHOLOGY Pathology 09/20/2025 11:02 AM SLACKLINE OPERATOR Encounter for consultation MRI BREAST DIAGNOSTIC WWO CONTRAST BILATERAL Routine 09/15/2025 3:24 PM SLACKLINE OPERATOR MRI BREAST WO CONTRAST BILAT Routine 09/15/2025 7:21 AM SLACKLINE OPERATOR COMPREHENSIVE METABOLIC PANEL Routine 09/08/2025 12:19 PM CDT COMPREHENSIVE METABOLIC PANEL Routine 09/02/2025 11:56 AM CDT CBC WITH AUTODIFFERENTIAL Routine 08/25/2025 12:02 PM CDT COMPREHENSIVE METABOLIC PANEL Routine 08/25/2025 11:40 AM CDT COMPREHENSIVE METABOLIC PANEL Routine 08/11/2025 11:11 AM CDT CBC WITH AUTODIFFERENTIAL Routine 08/04/2025 3:53 PM CDT COMPREHENSIVE METABOLIC PANEL Routine 07/28/2025 12:31 PM CDT BASIC METABOLIC PANEL Routine 07/14/2025 3:20 PM CDT COMPREHENSIVE METABOLIC PANEL Routine 07/14/2025 3:17 PM CDT BASIC METABOLIC PANEL Routine 07/07/2025 11:59 AM CDT COMPREHENSIVE METABOLIC PANEL Routine 07/07/2025 11:58 AM CDT CBC WITH AUTODIFFERENTIAL Routine 06/30/2025 10:23 AM CDT MAMMO DIAG UNI RIGHT 3D RODOLFO W OR WO CAD Routine 04/08/2025 9:44 AM CDT from Last 3 Months or Most Recently Relevant to Health Maintenance Results * PATHOLOGY (09/20/2025 11:02 AM SLACKLINE OPERATOR) CASE REPORT Surgical Pathology Report Case: [id number] Authorizing Provider: Lilliam Interiano MD Collected: 09/20/2025 11:02 AM Ordering Location: [facility] Received: 09/20/2025 10:48 AM Services [facility] Pathologist: Iris Boothe MD Specimen: Other, specify, 8 slides labeled [id number] 8:52 AM SLACKLINE OPERATOR [facility] FINAL DIAGNOSIS Review of material from [place], [place] ([id number]; 04/08/2025): Breast, right, 8:00, ultrasound-guided core biopsy: - Invasive ductal carcinoma, with the following features: 1. Size: 6 mm (maximum linear extent) 2. Medina score: 9/9 (grade 3) 3. Lymphovascular space invasion: Present 4. Perineural invasion: Present 5. Biomarker status: ER positive, IL positive, HER2 negative (0) - See microscopic description Lymph node, right axillary, ultrasound-guided core biopsy: - Metastatic carcinoma, consistent with breast primary 1. Size: 12 mm 5 8:52 AM [facility] [employer] [facility] at 0852 SLACKLINE OPERATOR MICROSCOPIC DESCRIPTION The slides are labeled [id number] and Love Mata. Sections of the right breast 8:00 biopsy show cores of breast tissue extensively involved by a high-grade neoplasm. The tumor cells invade as single file lines, single cells, and small nests (score of 3). The tumor cells are enlarged and markedly pleomorphic with prominent nucleoli (score of 3). Mitoses are increased and occur up to 39/10 HPF (score of 3). Perineural invasion and lymphovascular space invasion are present. The block was obtained from the outside institution and a small panel of immunohistochemical stains were performed in our lab. The tumor cells are diffusely positive for CK7 and GATA3 and have strong, membranous positivity for E-cadherin. The tumor cells are negative for CK20. Biomarker studies were performed at the outside institution and provided for review. The tumor cells are positive for ER (8/8 and IL (7/8), and are negative for HER2 (0). Per report, Ki-67 shows a proliferation rate of 30-40%. The above morphologic and immunophenotypic findings are consistent with breast carcinoma. Sections of the right axillary lymph node biopsy show cores of lymph node with almost complete replacement of the parenchyma by metastatic carcinoma with the morphology identical to that seen in the breast biopsy, consistent with metastatic mammary carcinoma. 5 8:52 AM [facility] CLINICAL INFORMATION Z71.9 - Encounter for consultation [ICD-10-CM] 5 8:52 AM [facility] [employer] [facility] SUBMITTED BY Dr. Lilliam Interiano, [address] [address], [address], [address] [place] [address], [place] [address]. 5 8:52 AM [facility] MATERIAL RECEIVED Received from [place], [place] are 8 slides labeled Love Mata and sublabeled [id number]. These are derived from a right breast and right axillary lymph node biopsy performed on 04/08/2025 as detailed in the accompanying corresponding surgical pathology report. 8:52 AM SLACKLINE OPERATOR [facility] COMMENT Special stain, immunohistochemical, and/or in situ hybridization results are interpreted with controls that demonstrate appropriate staining reactions. Note on use of immunohistochemistry reagents and in situ hybridization probes: These tests were developed and their performance characteristics determined by [facility], Department of Laboratory Medicine. It has not been cleared or approved by the U.S. Food and Drug Administration. The FDA has determined that such clearance or approval is not necessary. The test is used for clinical purposes. It should not be regarded as investigational or for research. This laboratory is certified to perform high complexity testing. Frozen section/operating room consultation, gross examination and dissection, and case sign out may have been performed in part or completely in the following laboratories: [facility], CLIA #[id number] [address] [place] [address] [facility], CLIA #[id number] [address] [place] [address] [facility] [place] [facility], CLIA #[id number] [address] [place] [address] 8:52 AM SLACKLINE OPERATOR [facility] Tissue (Other, specify) 09/20/2025 11:02 AM SLACKLINE OPERATOR 09/20/2025 10:48 AM SLACKLINE OPERATOR Lilliam Interiano MD PATHOLOGY/CYTOLOGY ORDER BRENDA Final Result [facility] CLIA# [id number] [address] [place] [address] * MRI BREAST DIAGNOSTIC WWO CONTRAST BILATERAL (09/15/2025 3:24 PM SLACKLINE OPERATOR) Anatomical Region Laterality Modality Breast Bilateral Magnetic Resonan ce us Abstract Provider MR ORDERABLES Edited Result - Final * MRI BREAST WO CONTRAST BILAT (09/15/2025 7:21 AM SLACKLINE OPERATOR) Anatomical Region Laterality Modality Breast Bilateral Magnetic Resonan ce Deandre Duff MD MR ORDERABLES Final Result * COMPREHENSIVE METABOLIC PANEL (09/08/2025 12:19 PM CDT) Only the most recent of7 resultswithin the time period is included. Blood Deandre Duff MD CHEMISTRY ORDERABLES Final Resu lt * CBC WITH AUTODIFFERENTIAL (08/25/2025 12:02 PM CDT) Only the most recent of3 resultswithin the time period is included. Blood Deandre Duff MD HEMATOLOGY ORDERABLES Final Res ult * BASIC METABOLIC PANEL (07/14/2025 3:20 PM CDT) Only the most recent of2 resultswithin the time period is included. Blood Deandre Duff MD CHEMISTRY ORDERABLES Final Resu lt * MAMMO 3D RODOLFO DIAGNOSTIC UNI RT 3D W OR WO CAD (04/08/2025 9:44 AM CDT) Anatomical Region Laterality Modality Breast Right Mammography us Abstract Provider MAMMO ORDERABLES Edited Result - Final from Last 3 Months or Most Recently Relevant to Health Maintenance Insurance MEDICARE PART A AND B [place] [address] MEDICARE PART A AND B AET MEDICARE SUPP AESSI
--- OUTSIDE RECORDS SUMMARY | 2025-09-30 12:28 | XMS_ITS | Encounter Summary ---
Author Organization [facility] Healthcare Address [address] [place] [address] Care Team Providers Care Gas Worker Name Role Phone Kyle Rodriguez Primary Care Provider [phone] Lloyd Carrasco MD Unavailable [phone] Encounter Details Date Type Department Care Team (Late st Contact Info) Description 04/23/2025 Orders Only [facility] [place] Information Management [address] [place] [address] Scanning, Provider Social History Tobacco Use [...] on file Legal Sex Female 10:10 PM VACUUM COOKER OPERATOR Gender Identity Female 04/26/2022 10:45 AM [...] on filedocumented in this encounter Care Teams Gas Worker Relationship Specialty Start Date End Date Kyle Rodriguez PA [address] [place] [address] [place] [address] PCP - General Family Medicine 08/08/22 Lloyd Carrasco MD [address] [place] [address] Dermatology 02/24/24 documented as of this encounter
--- OUTSIDE RECORDS SUMMARY | 2025-09-30 12:28 | XMS_ITS | Encounter Summary ---
Author Organization [facility] Address [address] [place] [address] Care Team Providers Care Analyzer Sales Name Role Phone Unavailable Primary Care Provider Unavailabl e Encounter Details Date Type Department Care Team (Late st Contact Info) Description 09/29/[address] [facility] Breast Surgery Raul Barr[address] [place] [address] Vianney Granger, RN Social History Tobacco Use Types Packs/Day Years Used Date Smoking Tobacco: Never Smokeless Tobacco: Never Alcohol Use Standard Drinks/Week Comments Not Currently [...] st Contact Info) Description 10/12/2025 7:00 AM ALTERATIONS TAILOR Appointment [facility] RAUL [address] [place] [address] Akosua Ko, Occupational Therapist 10/13/2025 6:30 AM ALTERATIONS TAILOR Appointment [facility] Nuclear Medicine Lab Testing Raul Barr[place] [address] [place] [id number] [place] [address] [facility] [address] [place] [address] 10/13/2025 7:17 AM ALTERATIONS TAILOR Hospital Encounter [facility] RA[address] [place] [address] [place] [address] [facility] [address] [place] [address] Malignant neoplasm of right female breast, unspecified estrogen receptor status, unspecified site of breast ([facility]/HCC) 10/13/2025 7:17 AM ALTERATIONS TAILOR - 10/13/2025 12:37 PM ALTERATIONS TAILOR Surgery [facility] RAUL BARRAGAN [address] [place] [address] [place] [address] [facility] [address] [place] [address] BREAST MASTECTOMY SIMPLE BILATERAL 10/18/2025 9:30 AM ALTERATIONS TAILOR Office Visit [facility] Plastic Surgery at the [facility] [address] [facility] [address] [place] [address] Abhijit Callahan MD [address] [facility] [address] [place] [address] 10/20/2025 9:45 AM ALTERATIONS TAILOR Office Visit [facility] Oncology and Hematology - [place] [address] [facility] [address] [place] [address] Deandre Duff MD [address] [facility] [address] [place] [address] 11/16/2025 9:00 AM ALTERATIONS TAILOR Appointment [facility] RAUL DAMIEN [address] [place] [address] Sabine Freeman, Production Clerk 11/26/2025 10:00 AM ALTERATIONS TAILOR Appointment [facility] RAUL [address] [place] [address] Sabine Freeman, Production Clerk 12/03/2025 10:00 AM ALTERATIONS TAILOR Appointment [facility] RAUL [place] [place] [address] Elisa Smith, Production Clerk 12/10/2025 10:00 AM ALTERATIONS TAILOR Appointment [facility] RAUL [address] [place] [address] Sabine Freeman, Production Clerk Scheduled Procedures Name Priority Associated Diagnoses Date/Ti me BREAST MASTECTOMY SIMPLE BILATERAL Malignant neoplasm of right female breast, unspecified estrogen receptor status, unspecified site of breast (CMS/HCC) 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) 10/13/2025 7:17 AM ALTERATIONS TAILOR SENTINEL LYMPH NODE BIOPSY MAPPING Malignant neoplasm of right female breast, unspecified estrogen receptor status, unspecified site of breast (CMS/HCC) 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) 10/13/2025 7:17 AM ALTERATIONS TAILOR AXILLARY LYMPH NODE DISSECTION Malignant neoplasm of right female breast, unspecified estrogen receptor status, unspecified site of breast (CMS/HCC) 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
--- OUTSIDE RECORDS SUMMARY | 2025-09-30 12:28 | XMS_ITS | Clinical Summary ---
Author Organization [facility] [address] [place] [address] Address [address] [place] [address] Care Team Providers Care Civilian Jail Officer Name Role Phone Kyle Rodriguez Primary Care Provider [phone] Lloyd Carrasco MD Unavailable [phone] Allergies Active Allergy Reactions Criticality Noted Date [...] diet. Assessment & Plan (09/18/2021 2:30 PM DRUG ABUSE TREATMENT SPECIALIST): Chronic Work on diet and exercise. Repeat lipid panel in 6 mo. ANA (generalized anxiety disorder) 11/13/2019 Assessment & Plan (08/31/2024 11:07 PM CDT): Chronic Stable Continue xanax prn Assessment & Plan (11/14/2021 2:57 PM DRUG ABUSE TREATMENT SPECIALIST): Chronic Stable Continue xanax prn Assessment & Plan (01/27/2021 10:36 AM CDT): Chronic condition improved with use of buspirone. Continue with current regimen including BuSpar and Viibryd. Assessment & Plan (12/09/2020 9:09 AM DRUG ABUSE TREATMENT SPECIALIST): Refill xanax with #15 Start buspar 7.5mg bid for 1 week then increase 2tablets bid, Second script at 15mg bid Assessment & Plan (12/25/2019 10:09 AM DRUG ABUSE TREATMENT SPECIALIST): Start buspar 7.5mg bid She has not taken any xanax in the past 4 weeks. Assessment & Plan (11/13/2019 10:47 AM DRUG ABUSE TREATMENT SPECIALIST): Xanax 0.5mg every day prn #5 Flexural eczema 11/13/2019 Assessment & Plan (11/14/2021 2:52 PM DRUG ABUSE TREATMENT SPECIALIST): Chronic condition with current exerbation Start betamethasone lotion Assessment & Plan (11/13/2019 10:47 AM DRUG ABUSE TREATMENT SPECIALIST): Start betamethasone diproprionate oint Abnormal mammogram of left breast 01/16/2019 Age-related cataract of both eyes 09/12/2018 Grief at loss of child 09/12/2018 Assessment & Plan (12/25/2019 10:09 AM DRUG ABUSE TREATMENT SPECIALIST): Refer to [facility] counseling Assessment & Plan (11/13/2019 10:47 AM DRUG ABUSE TREATMENT SPECIALIST): Start viibryd starter stephanie and copay card Encounters Date Type Department Care Team Description 07/05/2025 12:45 PM CDT Office Visit [facility] Family Medicine at [address] [address] Kyle Rodriguez PA Age-related osteoporosis [...] on file Legal Sex Female 10:10 PM DRUG ABUSE TREATMENT SPECIALIST Gender Identity Female 04/26/2022 10:45 AM CDT [...] Patient has taken/is taking vitamin-D and calcium. Train System Operator/Model: [employer] (S/N [id number]) CLINICAL INFORMATION: Current height: 64 inches Maximum [...] Bonnie Travis M.D. TW: TW Report ID: [id number] Reading Location: [id number] Procedure Note Bonnie Travis MD - 08/26/2024 EXAM DESCRIPTION: DEXA AXIAL SKELETON BONE DENSITY 1 OR MORE SITES REASON FOR STUDY: 69 y/o year old F with given history of: Post menopausal status. Patient has taken/is taking vitamin-D and calcium. Train System Operator/Model: [employer] (S/N [id number]) CLINICAL INFORMATION: Current height: 64 inches Maximum [...] 6:32 PM - Electronically signed by Bonnie Traivs M.D. TW: FLORI Report ID: [id number] Reading Location: [id number] Kyle KILGORE DXA PROCEDURES Final Result * [...] age 40, based on guidelines of the [place] [employer] (ACR Practice Parameter for the Performance of Screening and Diagnostic Mammography) and [place] [employer]. For women [...] CDT) Stool DNA - Cologuard Negative Negative [facility] (CLIA #:[id number]) Comment: NEGATIVE TEST RESULT. A negative Cologuard [...] Hernandez et al, N Engl J Med 2014;370(14):0187-6422) The normal value (reference range) for this assay is negative. COLOGUARD RE-SCREENING RECOMMENDATION: Periodic colorectal cancer screening is an important part of preventive healthcare for asymptomatic individuals at average risk for colorectal cancer. Following a negative Cologuard result, the [place] [employer] and U.S. Multi-Society Task Force screening guidelines recommend a Cologuard re-screening interval of 3 years. References: [place] [employer] Guideline for Colorectal Cancer Screening: https://www.cancer.org/cancer/ttjqt-uxgjyk-jdzqxx/bepaiaprx-rbqiktwvo-tecwnrr/ac s-rec ommendations.html.; Jake DK, Cece WATKINS, Jayde NavasK, Colorectal Cancer Screening: Recommendations for Physicians and Patients from the U.S. Multi-Society Task Force on Colorectal Cancer Screening , Am J Gastroenterology 2017; 112:6857-4332. TEST DESCRIPTION: Composite algorithmic analysis of stool [...] (Esteban Velez al, N Engl J Med 2014;370(14):5525-2904.) Cologuard may produce a false negative or false positive result (no colorectal cancer or precancerous polyp present at colonoscopy follow up). A negative Cologuard test result does not guarantee the absence of CRC or advanced adenoma (pre-cancer). The current Cologuard screening interval is every 3 years. ([place] [employer] and U.S. Multi-Society Task Force). Cologuard performance data in a 10,000 patient pivotal study using colonoscopy as the reference method can be accessed at the following location: www.AVIcode/results. Additional description of the Cologuard test process, warnings and precautions can be found at www.cologOnRequest Imagesrd.OncoPep. Stool 04/21/2023 6:30 AM CDT 04/23/2023 5:11 PM CDT Kyle KAT LAB BODY FLUIDS AND STOOLS EM[facility] GILBERT Final Result [facility] (CLIA #:[id number]) [address] [place] [address] * Hepatitis C antibody (08/31/2021 9:45 AM CDT) Pathologist [facility] Hep C Ab <0.1 0.0 - 0.9 s/co ratio [facility] - 01 Comment: Negative: < 0.8 Indeterminate: 0.8 - 0.9 Positive: > 0.9 The CDC recommends that a positive HCV antibody result be followed up with a HCV Nucleic Acid Amplification test (960125). Blood specimen (specimen) 08/31/2021 9:45 AM CDT 08/31/2021 Narrative [facility] - 09/01/2021 5:07 AM CDT Performed at: [address] [place] [id number] Energy Crop Farmer: Albert Shore PhD, Phone: [phone] us Kyle KAT [facility] MICROBIOLOGY - GENERAL [facility] GILBERT Final Result [facility] - 01 from Last 3 Months or Most Recently Relevant to Health Maintenance Insurance MEDICARE [employer] SENIOR SUPPLEMENT Care Teams Civilian Jail Officer Relationship Specialty Start Date End Date Kyle Rodriguez PA [address] [facility] [address] [address] PCP - General Family Medicine 08/08/22 Lloyd Carrasco MD [address] [facility] [address] [place] [place] [address] Dermatology 02/24/24
--- OUTSIDE RECORDS SUMMARY | 2025-09-30 12:28 | XMS_ITS | Encounter Summary ---
Author Organization [facility] ROSALVA Garza [facility] Address [address] [place] [address] Care Team Providers Care Strategic Sourcing Specialist Name Role Phone Unavailable Primary Care Provider Unavailabl e Encounter Details Date Type Department Care Team (Late st Contact Info) Description 09/27/2025 Orders Only [facility] Oncology and Hematology - [place] [address] [facility] [address] [place] [address] Deandre Duff MD [address] [facility] [address] [place] [address] Malignant neoplasm of upper-outer quadrant [...] Patient needs follow up regardin 09/29/2025 Comments Unknown Sex and Gender Information Value Date Recorded Sex Assigned at Not on file Legal Sex Female 8:44 AM CDT Gender Identity Not on file Sexual Orientation Not on file documented as of this encounter Plan of Treatment Upcoming Encounters Date Type Department Care Team (Late st Contact Info) Description 10/12/2025 7:00 AM BAKED AND GRAPHITE INSPECTOR Appointment [facility] [address] [place] [phone] Akosua Ko, Occupational Therapist 10/13/2025 6:30 AM BAKED AND GRAPHITE INSPECTOR Appointment [facility] Nuclear Medicine Lab Testing Raul Barragan [address] [facility] [place] [address] [place] [address] [facility] [address] [place] [address] 10/13/2025 7:17 AM BAKED AND GRAPHITE INSPECTOR Hospital Encounter [facility] [address] [address] [facility] [address] [place] [address] [place] [address] [facility] [address] [place] [address] Malignant neoplasm of right female breast, unspecified estrogen receptor status, unspecified site of breast ([facility]/HCC) 10/13/2025 7:17 AM BAKED AND GRAPHITE INSPECTOR - 10/13/2025 12:37 PM BAKED AND GRAPHITE INSPECTOR Surgery [facility] [address]AG[address] [address] [facility] [address] [place] [address] [place] [address] [facility] [address] [place] [address] BREAST MASTECTOMY SIMPLE BILATERAL 10/18/2025 9:30 AM BAKED AND GRAPHITE INSPECTOR Office Visit [facility] Plastic Surgery at the [facility] Medicine [address] [place] [address] Abhijit Callahan MD [address] [facility] [address] [place], [place] [id number] 10/20/2025 9:45 AM BAKED AND GRAPHITE INSPECTOR Office Visit [facility] Oncology and Hematology - [place] [address] [place] [address] Deandre Duff MD [address] [facility] [address] [place] [address] 11/16/2025 9:00 AM BAKED AND GRAPHITE INSPECTOR Appointment [facility] [address]UL [address] [place] [address] Sabine Freeman, Rn Mds Coordinator 11/26/2025 10:00 AM BAKED AND GRAPHITE INSPECTOR Appointment [facility] [address] [place] [address] Sabine Freeman, Rn Mds Coordinator 12/03/2025 10:00 AM BAKED AND GRAPHITE INSPECTOR Appointment [facility] RAUL [address] [address] [place] [address] Elisa Smith, Rn Mds Coordinator 12/10/2025 10:00 AM BAKED AND GRAPHITE INSPECTOR Appointment [facility] [address] [address] [address] [place] [address] Sabine Freeman, Rn Mds Coordinator Scheduled Procedures Name Priority Associated Diagnoses Date/Ti me BREAST MASTECTOMY SIMPLE BILATERAL Malignant neoplasm of right female breast, unspecified estrogen receptor status, unspecified site of breast (CMS/HCC) 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) 10/13/2025 7:17 AM BAKED AND GRAPHITE INSPECTOR SENTINEL LYMPH NODE BIOPSY MAPPING Malignant neoplasm of right female breast, unspecified estrogen receptor status, unspecified site of breast (CMS/HCC) 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) 10/13/2025 7:17 AM BAKED AND GRAPHITE INSPECTOR AXILLARY LYMPH NODE DISSECTION Malignant neoplasm of right female breast, unspecified estrogen receptor status, unspecified site of breast (CMS/HCC) 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) 10/13/2025 7:17 AM BAKED AND GRAPHITE INSPECTOR BREAST TISSUE CONSTRUCTION AND MAINTENANCE INSPECTOR INSERTION Malignant neoplasm of right female breast, unspecified estrogen receptor status, unspecified site of breast (CMS/HCC) 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
== END 2025-09-30 10:17 | disposition home or self-care (01) ==
PROVIDERS: PCP Physician Assistant Medical
DX: C50.911 Malignant neoplasm of unspecified site of right female breast (principal); I45.10 Unspecified right bundle-branch block
CPT/HCPCS: 93005

== ENCOUNTER 2025-10-05 14:49 | Outpatient (CLI) | payer MEDICARE, SELFPAY ==
--- OUTSIDE RECORDS SUMMARY | 2018-10-23 05:50 | XMS_ITS | Continuity of Care Document ---
Author Organization [facility] Address [address] [place] [address] [address] [place] [address] Phone Care Team Providers Care Flight Nurse Name Role Phone Quintin Calvo MD Unavailable Unavailable Procedures Procedure Date CATARACT SURG W/IOL, 1 STAGE CATARACT SURG W/IOL, 1 STAGE OFFICE/OUTPATIENT VISIT, [facility] OPHTHALMIC BIOMETRY Advance Directives Directive Yes / No Effective Date File Name No Information Encounters Encounter Description Practice Location Reason(s) For Visit Diagnoses Date Provider Providers Copied on Encounter Ophthalmology [facility], [address] [place] [address], [place], [place], [address] [place] [address], tel:[phone] [facility] [place] No Information [address] Lubna Ribeiro. [address] [facility], [address], [place], [place], [id number], . tel:[phone] Referring Provider: Quintin Perez, [address] [place] [address] [address], [place], [address]. tel:[phone] Ophthalmology [facility], [address] [place] [address] [address] [place], [id number], tel:[phone] [facility] [place] No Information 8 Lubna Ribeiro. [address] [place] [address], [facility] [address], [id number], . tel:[phone] Referring Provider: Quintin Perez, [address] [place] [address] [address], [place], [address]. tel:[phone] OFFICE/OUTPAT IENT VISIT, NEW [facility], [address], [place], [place], [id number], [place] tel:[phone] [place] No Information 8 Lubna Ribeiro. [address] [facility], [address], [place], [place], [id number], [place]. tel:[phone] Referring Provider: Quintin Perez, [address] [facility] [address], [place], [address]. tel:[phone] Family History Family Member Type Diagnosis Age At Onset No Information Payers Payer name Insurance type Covered green party ID Authoriza tion(s) No Information Social History Type Description Quantity Date Captured Comments Sex Female Smoking Status No Information Chief Complaint And Reason For Visit No Information Reason For Referral Reason For Referral No Information History Of Present Illness Encounter Date Complaint History Of Prese nt Illness No Information Functional Status Date Functional Assessmen t No Information Instructions Date Instruction Additional Infor mation No Information Assessments Type Assessment Date No Information Patient Care Teams Name Effective Dates (start - stop) Status Members No Information
--- NOTE | ~2025-10-05 | PE_ITS ---
EXAMINATION: PET skull to mid thigh DATE: 10/05/2025 16:51 INDICATION: Breast cancer. TECHNIQUE: Blood glucose level was 111 mg/dL. 10.431 mCi of 18- fluorodeoxyglucose (18-FDG) was administered i.v. Low dose computed tomography (CT) images were acquired from the base of the brain to the proximal thighs for attenuation correction and anatomic localization. Automated exposure control was employed. Dose-length product (DLP) was 523 mGy-cm. Positron emission tomography (PET) images were acquired in the same distribution. COMPARISON: PET/CT 04/27/2025 FINDINGS: Head/neck: There are likely changes of ocular lens replacement surgeries. There are no pathologically enlarged lymph nodes. There are nodules in the thyroid measuring up to 10 mm, likely not clinically significant. There is a left internal jugular port with tip in superior vena cava. Chest: There is emphysema with a large bulla in left upper lobe. There is mild atelectasis bilaterally. No pleural effusion. The heart size is normal. No pericardial effusion. There are 2 right axillary lymph nodes with increased activity. The larger node measures 1.3 x 1.2 cm with maximum SUV of 8.8, decreased from 2.1 x 2.4 cm and maximum SUV of 20.7 on 04/27/25. Abdomen/pelvis/proximal thighs: The liver is normal. There are changes of cholecystectomy. The spleen, pancreas, adrenal glands, and kidneys are normal. There are no dilated loops of bowel. There are no pathologically enlarged lymph nodes. There is no free intraperitoneal fluid. There is no osseous malignancy. IMPRESSION: 1. Two right axillary lymph nodes with increased activity with improvement from 04/27/2025, consistent with albin metastatic disease. Reviewed, dictated and finalized at location E. ROOM MANAGER
--- OUTSIDE RECORDS SUMMARY | 2025-10-05 16:39 | XMS_ITS | Clinical Summary ---
Author Organization [facility] Address [facility] [place] [address] Care Team Providers Care Flanging Machine Operator Name Role Phone Leonard Morales MD Primary Care Provider [phone] Immunizations Immunization Administration Dates Next Due MODERNA [...] age to complete this topic Care Teams Flanging Machine Operator Relationship Specialty Start Date End Date Leonard Morales MD PCP - General 04/10/16
--- OUTSIDE RECORDS SUMMARY | 2025-10-05 16:39 | XMS_ITS | Clinical Summary ---
Author Organization [facility] [place] [address] [place] [address] Address [address] [place] [address] Care Team Providers Care Gas Distribution Plant Operator Name Role Phone Kyle Rodriguez Primary Care Provider [phone] Lloyd Carrasco MD Unavailable [phone] Allergies Active Allergy Reactions Criticality Noted Date [...] diet. Assessment & Plan (09/18/2021 2:30 PM DIRECTOR OF PROGRAMMING): Chronic Work on diet and exercise. Repeat lipid panel in 6 mo. ANA (generalized anxiety disorder) 11/13/2019 Assessment & Plan (08/31/2024 11:07 PM CDT): Chronic Stable Continue xanax prn Assessment & Plan (11/14/2021 2:57 PM DIRECTOR OF PROGRAMMING): Chronic Stable Continue xanax prn Assessment & Plan (01/27/2021 10:36 AM CDT): Chronic condition improved with use of buspirone. Continue with current regimen including BuSpar and Viibryd. Assessment & Plan (12/09/2020 9:09 AM DIRECTOR OF PROGRAMMING): Refill xanax with #15 Start buspar 7.5mg bid for 1 week then increase 2tablets bid, Second script at 15mg bid Assessment & Plan (12/25/2019 10:09 AM DIRECTOR OF PROGRAMMING): Start buspar 7.5mg bid She has not taken any xanax in the past 4 weeks. Assessment & Plan (11/13/2019 10:47 AM DIRECTOR OF PROGRAMMING): Xanax 0.5mg every day prn #5 Flexural eczema 11/13/2019 Assessment & Plan (11/14/2021 2:52 PM DIRECTOR OF PROGRAMMING): Chronic condition with current exerbation Start betamethasone lotion Assessment & Plan (11/13/2019 10:47 AM DIRECTOR OF PROGRAMMING): Start betamethasone diproprionate oint Abnormal mammogram of left breast 01/16/2019 Age-related cataract of both eyes 09/12/2018 Grief at loss of child 09/12/2018 Assessment & Plan (12/25/2019 10:09 AM DIRECTOR OF PROGRAMMING): Refer to [facility] Assessment & Plan (11/13/2019 10:47 AM DIRECTOR OF PROGRAMMING): Start viibryd starter stephanie and copay card Encounters Date Type Department Care Team Description 07/05/2025 12:45 PM CDT Office Visit [facility] Family Medicine at [address] [id number] Kyle Rodriguez PA Age-related osteoporosis [...] on file Legal Sex Female 10:10 PM DIRECTOR OF PROGRAMMING Gender Identity Female 04/26/2022 10:45 AM CDT [...] Patient has taken/is taking vitamin-D and calcium. Table Machine Operator/Model: Flowboard A (S/N [id number]) CLINICAL INFORMATION: Current height: 64 inches Maximum [...] Bonnie Travis M.D. TW: TW Report ID: [id number] Reading Location: [id number] Procedure Note Bonnie Travis MD - 08/26/2024 EXAM DESCRIPTION: DEXA AXIAL SKELETON BONE DENSITY 1 OR MORE SITES REASON FOR STUDY: 69 y/o year old F with given history of: Post menopausal status. Patient has taken/is taking vitamin-D and calcium. Table Machine Operator/Model: Flowboard A (S/N [id number]) CLINICAL INFORMATION: Current height: 64 inches Maximum [...] Bonnie Travis M.D. TW: FLORI Report ID: [id number] Reading Location: [id number] Kyle KILGORE DXA PROCEDURES Final Result * [...] age 40, based on guidelines of the [place] [employer] (ACR Practice Parameter for the Performance of Screening and Diagnostic Mammography) and [place] [employer]. For women [...] CDT) Stool DNA - Cologuard Negative Negative [employer] (CLIA #:[id number]) Comment: NEGATIVE TEST RESULT. A negative Cologuard [...] screened with both Cologuard and colonoscopy. (Esteban Hernnadez et al, N Engl J Med 2014;370(14):0477-5228) The normal value (reference range) for this assay is negative. COLOGUARD RE-SCREENING RECOMMENDATION: Periodic colorectal cancer screening is an important part of preventive healthcare for asymptomatic individuals at average risk for colorectal cancer. Following a negative Cologuard result, the [place] [employer] and U.S. Multi-Society Task Force screening guidelines recommend a Cologuard re-screening interval of 3 years. References: [place] [employer] Guideline for Colorectal Cancer Screening: https://www.cancer.org/cancer/ulkft-kmxqsa-jzeqzm/urkbdoppt-nmonajvkt-qxdgkng/ac s-rec ommendations.html.; Jake DK, Cece WATKINS, Jayde NavasK, Colorectal Cancer Screening: Recommendations for Physicians and Patients from the U.S. Multi-Society Task Force on Colorectal Cancer Screening , Am J Gastroenterology 2017; 112:2263-0893. TEST DESCRIPTION: Composite algorithmic analysis of stool [...] (Esteban Velez al, N Engl J Med 2014;370(14):6758-9352.) Cologuard may produce a false negative or false positive result (no colorectal cancer or precancerous polyp present at colonoscopy follow up). A negative Cologuard test result does not guarantee the absence of CRC or advanced adenoma (pre-cancer). The current Cologuard screening interval is every 3 years. ([place] [employer] and U.S. Multi-Society Task Force). Cologuard performance data in a 10,000 patient pivotal study using colonoscopy as the reference method can be accessed at the following location: www.[employer] Variety/results. Additional description of the Cologuard test process, warnings and precautions can be found at www.cologRetention Educationrd.Bookacoach. Stool 04/21/2023 6:30 AM CDT 04/23/2023 5:11 PM CDT Kyle [facility] BODY FLUIDS AND STOOLS [facility] GIL[facility]ERT Final Result [employer] (CLIA #:[id number]) [address] [place] [address] * Hepatitis C antibody (08/31/2021 9:45 AM CDT) Pathologist [facility] Hep C Ab <0.1 0.0 - 0.9 s/co ratio [facility] - 01 Comment: Negative: < 0.8 Indeterminate: 0.8 - 0.9 Positive: > 0.9 The CDC recommends that a positive HCV antibody result be followed up with a HCV Nucleic Acid Amplification test (171183). Blood specimen (specimen) 08/31/2021 9:45 AM CDT 08/31/2021 Narrative [facility] - 09/01/2021 5:07 AM CDT Performed at: [address] [place] [id number] Cryptanalyst: Albert Shore PhD, Phone: [phone] us Kyle [facility] MICROBIOLOGY - GENERAL [facility] GIL[facility]ERT Final Result [facility] - 01 from Last 3 Months or Most Recently Relevant to Health Maintenance Insurance MEDICARE [employer] SENIOR SUPPLEMENT Care Teams Gas Distribution Plant Operator Relationship Specialty Start Date End Date Kyle Rodriguez PA [address] [place] [address] PCP - General Family Medicine 08/08/22 Lloyd Carrasco MD [address] [place] [address] [place] [id number] Dermatology 02/24/24
--- OUTSIDE RECORDS SUMMARY | 2025-10-05 16:39 | XMS_ITS | Encounter Summary ---
Author Organization [facility] Care Team Providers Care Clinical Mental Health Counselor Name Role Phone Leonard Morales MD Primary Care Provider [phone] Kyle Rodriguez Primary Care Provider [phone] Lloyd Carrasco MD Unavailable [phone] Encounter Details Date Type Department Care Team (Latest Contact Info) Description 01/14/2019 Orders Only [facility] ProviderDominga MD [address] [place] [id number] Social History Tobacco Use Types Packs/Day Years Used Date Smoking Tobacco: Never Assessed Comments Unknown Sex and Gender Information Value Date Recorded Sex Assigned at Not on file Legal Sex Female 10:10 PM MARINE STEAM FITTER Gender Identity Female 04/26/2022 10:45 AM CDT Sexual Orientation Straight 04/26/2022 10 :45 AM CDT documented as of this encounter Functional Status documented as of this encounter Plan of Treatment Not on file documented as of this encounter Procedures Procedure Name Priority Date/Time Associated Diagnosis Comments SCAN - LABS 01/15/2019 12:00 AM MARINE STEAM FITTER SCAN - LABS 01/15/2019 12:00 AM MARINE STEAM FITTER documented in this encounter Results * SCAN - LABS (01/15/2019 12:00 AM MARINE STEAM FITTER) Narrative 01/15/2019 12:00 AM MARINE STEAM FITTER Ordered by an unspecified provider. us Historical Provider Final Res ult * SCAN - LABS (01/15/2019 12:00 AM MARINE STEAM FITTER) Narrative 01/15/2019 12:00 AM MARINE STEAM FITTER Ordered by an unspecified provider. us Historical Provider Final Res ult documented in this encounter Visit Diagnoses Not on filedocumented in this encounter Care Teams Clinical Mental Health Counselor Relationship Specialty Start Date End Date Leonard Morales MD PCP - General Family Medicine 01/31/19 08/07/22 Kyle Rodriguez PA [facility] [address] [place] [address] [place] [id number] PCP - General Family Medicine 08/08/22 Lloyd Carrasco MD [address] [facility] [address] [place] [address] [place] [id number] Dermatology 02/24/24 documented as of this encounter
--- OUTSIDE RECORDS SUMMARY | 2025-10-05 16:40 | XMS_ITS | Encounter Summary ---
Author Organization [facility] Address [address] [place] [address] Care Team Providers Care Business Architect Name Role Phone Kyle Rodriguez Primary Care Provider [phone] Lloyd Carrasco MD Unavailable [phone] Encounter Details Date Type Department Care Team (Late st Contact Info) Description 04/23/2025 Orders Only [facility] [address] [place] [id number] Scanning, Provider Social History Tobacco Use [...] on file Legal Sex Female 10:10 PM FOOD PRODUCTION ASSOCIATE Gender Identity Female 04/26/2022 10:45 AM CDT [...] on filedocumented in this encounter Care Teams Business Architect Relationship Specialty Start Date End Date Kyle Rodriguez PA [address] [facility] [address] [place] [address] [place] [id number] PCP - General Family Medicine 08/08/22 Lloyd Carrasco MD [address] [facility] [address] [place] [address] Dermatology 02/24/24 documented as of this encounter
--- OUTSIDE RECORDS SUMMARY | 2025-10-05 16:40 | XMS_ITS | Clinical Summary ---
[facility] Address [address] [place] [address] Care Team Providers Care Continuous Improvement Specialist Name Role Phone Unavailable Primary Care [...] Encounters Date Type Department Care Team Description 10/01/2025 Chart Note [facility] Breast Surgery Raul Barragan [address] [facility] [address] [place] [phone] Sherley Stein RN 09/29/2025 Chart Note [facility] Breast Surgery Raul Barragan [address] [facility] [address] [place] [address] Vianney Granger RN 09/28/2025 External Device Data STL ABSTRACTION Provider, Abstract 09/27/2025 Orders Only [facility] Oncology and Hematology [facility] [address] [place] [phone] Deandre Duff MD Malignant neoplasm of upper-outer quadrant of right breast in female, estrogen receptor positive (CMS/HCC) 09/24/2025 Orders Only [facility] Oncology and [facility] [address] [place] [address] Deandre Duff MD 09/23/2025 Orders Only [facility] Breast Surgery Raul Barragan [address] [facility] [address] [place] [address] Provider, Abstract 09/23/2025 Chart Note [facility] Breast Surgery Raul Barragan [address] [address] Vianney Granger RN 09/20/2025 2:00 PM JUNK REMOVAL SPECIALIST Office Visit [facility] Plastic Surgery at the [facility] [address] [place] [address] Abhijit Callahan MD Encounter to discuss breast reconstruction (Primary Dx); Malignant neoplasm of right female breast, unspecified estrogen receptor status, unspecified site of breast (CMS/HCC) 09/20/2025 10:45 AM JUNK REMOVAL SPECIALIST - 09/20/2025 11:59 PM JUNK REMOVAL SPECIALIST Hospital Encounter [facility] [address] [place] [address] Lilliam Interiano MD Discharge Disposition: Home or Self Care 09/20/2025 Chart Note [facility] Breast Surgery Raul Barragan [address] [address] [facility] [address] [address] Vianney Granger RN 09/14/2025 2:15 PM JUNK REMOVAL SPECIALIST Office Visit [facility] Breast Surgery Raul Barragan [address] [address] [facility] [address] [place] [address] Lilliam Interiano MD Malignant neoplasm of right female breast, unspecified estrogen receptor status, unspecified site of breast (CMS/HCC) (Primary Dx); 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) 09/14/2025 Chart Note [facility] Breast Surgery Raul Barragan [address] [address] Vianney Granger RN 09/14/2025 Prep for Surgery [facility] Breast Surgery Raul Barragan [address] [facility] [address] [place] [address] Lilliam Interiano MD Malignant neoplasm of right female breast, unspecified estrogen receptor status, unspecified site of breast (CMS/HCC) (Primary Dx); 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) 09/13/2025 Orders Only [facility] Oncology and Hematology [facility] [address] [place] [phone] Deandre Duff MD Malignant neoplasm of upper-outer quadrant of right breast in female, estrogen receptor positive (CMS/HCC) 09/09/2025 Orders Only [facility] Oncology and Hematology [facility] [address] [place] [phone] Deandre Duff MD 09/08/2025 9:00 AM CDT Office Visit [facility] Oncology and Hematology [facility] [address] [place] [address] Deandre Duff MD Malignant neoplasm of upper-outer quadrant of right breast in female, estrogen receptor positive (CMS/HCC) (Primary Dx) 09/08/2025 Orders Only [facility] Raul Barragan [address] [place] [address] Provider, Abstract 09/06/2025 Chart Note [facility] Raul Barragan [address] [place] [address] Kriss Khan 09/03/2025 Orders Only [facility] Raul Barragan [address] [facility] [address] [place] [address] Provider, Abstract 09/02/2025 Orders Only [facility] Oncology and Hematology - [place] [address] [place] [address] Deandre Duff MD 09/01/2025 External Device Data STL ABSTRACTION Provider, Abstract 08/31/2025 External Device Data STL ABSTRACTION Provider, Abstract 08/30/2025 Orders Only [facility] Oncology and Hematology - [place] [address] [place] [address] Deandre Duff MD Malignant neoplasm of upper-outer quadrant of right breast in female, estrogen receptor positive (CMS/HCC) 08/26/2025 Orders Only [facility] Oncology and [facility]ology [facility] [place] [address] [place] [address] Deandre Duff MD 08/25/2025 9:30 AM CDT Office Visit [facility] Oncology and [facility]ology - [place] [address] [place] [address] Deandre Duff MD Malignant neoplasm of upper-outer quadrant of right breast in female, estrogen receptor positive (CMS/HCC) (Primary Dx) 08/25/2025 Orders Only [facility] Oncology and [facility]ematology - [place] [address] [place] [address] Deandre Duff MD 08/16/2025 Orders Only [facility] Oncology and [facility]ology [facility] [place] [address] [place] [address] Deandre Duff MD Malignant neoplasm of upper-outer quadrant of right breast in female, estrogen receptor positive (CMS/HCC) 08/13/2025 Orders Only [facility] Oncology and [facility] [place] [address] [place] [address] Deandre Duff MD 08/11/2025 9:15 AM CDT Office Visit [facility] Oncology and [facility]ology - [place] [address] [place] [address] Deandre Duff MD Malignant neoplasm of upper-outer quadrant of right breast in female, estrogen receptor positive (CMS/HCC) (Primary Dx) 08/04/2025 Orders Only [facility]cology and [facility] [place] [address] [place] [address] Deandre Duff MD 08/02/2025 Orders Only [facility]cology and [facility] [place] [address] [place] [address] Deandre Duff MD Malignant neoplasm of upper-outer quadrant of right breast in female, estrogen receptor positive (CMS/HCC) 07/29/2025 Orders Only [facility]cology and [facility]ology [facility] [place] [address] [place] [address] Deandre Duff MD 07/28/2025 10:15 AM CDT Office Visit [facility] Oncology and Hematology - [place] [address] [place] [address] Deandre Duff MD Malignant neoplasm of upper-outer quadrant of right breast in female, estrogen receptor positive (CMS/HCC) (Primary Dx) 07/27/2025 External Device Data STL ABSTRACTION Provider, Abstract 07/19/2025 Orders Only [facility] Oncology and Hematology - [place] [address] [place] [address] Deandre Duff MD Malignant neoplasm of upper-outer quadrant of right breast in female, estrogen receptor positive (CMS/HCC) 07/14/2025 Orders Only [facility] Oncology and Hematology [facility] [address] [place] [address] Deandre Duff MD 07/07/2025 8:45 AM CDT Office Visit [facility] Oncology and Hematology [facility] [address] [place] [address] Deandre Duff MD Malignant neoplasm of upper-outer quadrant of right breast in female, estrogen receptor positive (CMS/HCC) (Primary Dx) 07/07/2025 Orders Only [facility] Oncology and Hematology [facility] [address] [place] [address] Deandre Duff MD 07/05/2025 Orders Only [facility] Oncology and Hematology [facility] [address] [place] [address] Deandre Duff MD Malignant neoplasm of upper-outer [...] Comments Blood Pressure 122/70 09/20/2025 2:00 PM JUNK REMOVAL SPECIALIST Pulse 88 09/08/2025 8:42 AM CDT Temperature 37.1 C (98.7 F) 09/08/2025 8:42 AM CDT Respiratory Rate 15 09/08/2025 8:42 AM CDT Oxygen Saturation 97% 09/08/2025 8:42 AM CDT Inhaled Oxygen Concentration - - Weight 55.8 kg (123 lb) 09/29/2025 10:38 AM JUNK REMOVAL SPECIALIST Height 162.6 cm (5' 4) 09/29/2025 10:38 AM JUNK REMOVAL SPECIALIST Body Mass Index 21.11 09/29/2025 10:38 AM JUNK REMOVAL SPECIALIST Plan of Treatment Upcoming Encounters Date Type Department Care Team (Late st Contact Info) Description 10/12/2025 7:00 AM JUNK REMOVAL SPECIALIST Appointment [facility] RAUL BARRAGAN [address] [address] [place] [phone] Akosua Ko, Occupational Therapist 10/13/2025 6:30 AM JUNK REMOVAL SPECIALIST Appointment [facility] Nuclear Medicine Lab Testing Raul Barragan [address] [place] [phone] [place] [address] [address] [place] [phone] 10/13/2025 7:17 AM JUNK REMOVAL SPECIALIST Hospital Encounter [facility] RAUL BARRAGAN [address] [phone] [place] [address] [address] [place] [address] Malignant neoplasm of right female breast, unspecified estrogen receptor status, unspecified site of breast (CMS/HCC) 10/13/2025 7:17 AM JUNK REMOVAL SPECIALIST - 10/13/2025 12:37 PM JUNK REMOVAL SPECIALIST Surgery [facility] RA[address]AG[address] [place] [address] [place] [address] [facility] [address] [place] [address] BREAST MASTECTOMY SIMPLE BILATERAL 10/18/2025 9:30 AM JUNK REMOVAL SPECIALIST Office Visit [facility] Plastic Surgery at the [facility] [address] [facility] [address] [place] [address] Abhijit Callahan MD [address] [facility] [address] [place], [place] [phone] 10/20/2025 9:45 AM JUNK REMOVAL SPECIALIST Office Visit [facility] Oncology and Hematology - [place] [address] [facility] [address] [place] [address] Deandre Duff MD [address] [facility] [address] [place] [address] 11/16/2025 9:00 AM JUNK REMOVAL SPECIALIST Appointment [facility] RAUL BARRAG[address] [place] [address] Sabine Freeman, Queen Producer 11/26/2025 10:00 AM JUNK REMOVAL SPECIALIST Appointment [facility] RAUL B[place] [place] [address] Sabine Freeman, Queen Producer 12/03/2025 10:00 AM JUNK REMOVAL SPECIALIST Appointment [facility] RAUL B[place] [address] [place] [address] Elisa Smith, Queen Producer 12/10/2025 10:00 AM JUNK REMOVAL SPECIALIST Appointment [facility] RA[address] BARR[address] [place] [phone] Sabine Freeman, Queen Producer Scheduled Procedures Name Priority Associated Diagnoses Date/Ti me BREAST MASTECTOMY SIMPLE BILATERAL Malignant neoplasm of right female breast, unspecified estrogen receptor status, unspecified site of breast (CMS/HCC) 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) 10/13/2025 7:17 AM JUNK REMOVAL SPECIALIST SENTINEL LYMPH NODE BIOPSY MAPPING Malignant neoplasm of right female breast, unspecified estrogen receptor status, unspecified site of breast (CMS/HCC) 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) 10/13/2025 7:17 AM JUNK REMOVAL SPECIALIST AXILLARY LYMPH NODE DISSECTION Malignant neoplasm of right female breast, unspecified estrogen receptor status, unspecified site of breast (CMS/HCC) 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) 10/13/2025 7:17 AM JUNK REMOVAL SPECIALIST BREAST TISSUE FARMWORKER VEGETABLE INSERTION Malignant neoplasm of right female breast, unspecified estrogen receptor status, unspecified site of breast (CMS/HCC) 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) 10/13/2025 7:17 AM JUNK REMOVAL SPECIALIST Health Maintenance Due Date Last Done Comments [...] Procedure Name Priority Date/Time Associated Diagnosis Comments CBC WITH DIFFERENTIAL Routine 09/30/2025 12:40 PM JUNK REMOVAL SPECIALIST Malignant neoplasm of right female breast, unspecified estrogen receptor status, unspecified site of breast (CMS/HCC) EKG 12-LEAD Routine 09/30/2025 Malignant neoplasm of right female breast, unspecified estrogen receptor status, unspecified site of breast (CMS/HCC) PATHOLOGY Pathology 09/20/2025 11:02 AM JUNK REMOVAL SPECIALIST Encounter for consultation MRI BREAST DIAGNOSTIC WWO CONTRAST BILATERAL Routine 09/15/2025 3:24 PM JUNK REMOVAL SPECIALIST MRI BREAST WO CONTRAST BILAT Routine 09/15/2025 7:21 AM JUNK REMOVAL SPECIALIST COMPREHENSIVE METABOLIC PANEL Routine 09/08/2025 12:19 PM [...] METABOLIC PANEL Routine 07/07/2025 11:58 AM CDT MAMMO DIAG UNI RIGHT 3D RODOLFO W OR WO CAD Routine 04/08/2025 9:44 AM CDT from Last 3 Months or Most Recently Relevant to Health Maintenance Results * (ABNORMAL) CBC WITH DIFFERENTIAL (09/30/2025 12:40 PM JUNK REMOVAL SPECIALIST) WBC 8.6 3.8 - 10.8 Thousand/u L [facility] RBC 4.39 3.80 - 5.10 Million/uL [facility] HEMOGLOBIN 14.6 11.7 - 15.5 g/dL [facility] HEMATOCRIT 44.7 35.0 - 45.0 % [facility] MCV 101.8(H) 80.0 - 100.0 fL [facility] MCH 33.3(H) 27.0 - 33.0 pg [facility] MCHC 32.7 32.0 - 36.0 g/dL [facility] Comment: For adults, a slight decrease in the calculated MCHC value (in the range of 30 to 32 g/dL) is most likely not clinically significant; however, it should be interpreted with caution in correlation with other red cell parameters and the patient's clinical condition. RDW 11.9 11.0 - 15.0 % [facility] PLATELETS 205 140 - 400 Thousand/u L [facility] MPV 10.1 7.5 - 12.5 fL [facility] NEUTROPHIL ABSOLUTE 5,564 1,500 - 7,800 cells/uL [facility] LYMPHOCYTE ABSOLUTE 1,806 850 - 3,900 cells/uL [facility] MONOCYTE ABSOLUTE 963(H) 200 - 950 cells/uL [facility] EOSINOPHIL ABSOLUTE 163 15 - 500 cells/uL [facility] BASOPHILS ABSOLUTE 103 0 - 200 cells/uL [facility] NEUTROPHIL 64.7 % [facility] LYMPHOCYTES 21.0 % [facility] MONOCYTE 11.2 % [facility] EOSINOPHILS 1.9 % [facility] BASOPHILS 1.2 % [facility] Comment: Test Performed at: [email or web address] [address] [place] [address] Criss Zimmerman MD Blood 09/30/2025 12:4 0 PM JUNK REMOVAL SPECIALIST 09/30/2025 12:41 PM JUNK REMOVAL SPECIALIST Lilliam Interiano MD HEMATOLOGY ORDERABLES Fi nal Result [facility] [phone] [employer] [address] [place] [address] * EKG 12-LEAD (09/30/2025) Lilliam Interiano MD ECG ORDERABLES Final Re sult * PATHOLOGY (09/20/2025 11:02 AM JUNK REMOVAL SPECIALIST) CASE REPORT Surgical Pathology Report Case: [id number] Authorizing Provider: Lilliam Interiano MD Collected: 09/20/2025 11:02 AM Ordering Location: [facility] Received: 09/20/2025 10:48 AM [facility] Pathologist: Iris Boothe MD Specimen: Other, specify, 8 slides labeled [id number] 8:52 AM [facility] FINAL DIAGNOSIS Review of material from [place], [place] ([id number]; 04/08/2025): Breast, right, 8:00, ultrasound-guided core biopsy: - Invasive ductal carcinoma, with the following features: 1. Size: 6 mm (maximum linear extent) 2. Medina score: 9/9 (grade 3) 3. Lymphovascular space invasion: Present 4. Perineural invasion: Present 5. Biomarker status: ER positive, CT positive, HER2 negative (0) - See microscopic description Lymph node, right axillary, ultrasound-guided core biopsy: - Metastatic carcinoma, consistent with breast primary 1. Size: 12 mm 8:52 AM [facility] at 0852 JUNK REMOVAL SPECIALIST MICROSCOPIC DESCRIPTION The slides are labeled [id number] and Love Mata. Sections of the right [...] cells are positive for ER (8/[address] (7/8), and are negative for HER2 (0). [...] with metastatic mammary carcinoma. 5 8:52 AM [facility] CLINICAL INFORMATION Z71.9 - Encounter for consultation [ICD-10-CM] 5 8:52 AM [facility] SUBMITTED BY Dr. Lilliam Interiano, [address] [facility], [address], [place] [address] [facility], [address] [place] [address], [place] [address]. 5 8:52 AM [facility] MATERIAL RECEIVED Received from [place], [place] are 8 slides labeled Love Adolfo and sublabeled [id number]. These are derived from a right breast and right axillary lymph node biopsy performed on 04/08/2025 as detailed in the accompanying corresponding surgical pathology report. 5 8:52 AM [facility] COMMENT Special stain, immunohistochemical, and/or in situ hybridization results are interpreted with controls that demonstrate appropriate staining reactions. Note on use of immunohistochemistry reagents and in situ hybridization probes: These tests were developed and their performance characteristics determined by [facility], Department of Laboratory Medicine. It has not [...] part or completely in the following laboratories: [facility], CLIA #[id number] [address] [place] [address] [facility], CLIA #[id number] [address] [place] [address] [facility], CLIA #[id number] [address] [place] [address] 8:52 AM JUNK REMOVAL SPECIALIST [facility] Tissue (Other, specify) 09/20/2025 11:02 AM JUNK REMOVAL SPECIALIST 09/20/2025 10:48 AM JUNK REMOVAL SPECIALIST Lilliam Interiano MD PATHOLOGY/CYTOLOGY ORDER BRENDA Final Result [facility] CLIA# [id number] [address] [place] [address] * MRI BREAST DIAGNOSTIC WWO CONTRAST BILATERAL (09/15/2025 3:24 PM JUNK REMOVAL SPECIALIST) Anatomical Region Laterality Modality Breast Bilateral Magnetic Resonan ce Abstract Provider MR ORDERABLES Edited Result - Final * MRI BREAST WO CONTRAST BILAT (09/15/2025 7:21 AM JUNK REMOVAL SPECIALIST) Anatomical Region Laterality Modality Breast Bilateral Magnetic Resonan ce Deandre Duff MD MR ORDERABLES Final Result * COMPREHENSIVE METABOLIC PANEL (09/08/2025 12:19 PM CDT) Only the most recent of7 resultswithin the time period is included. Blood Deandre Duff MD CHEMISTRY ORDERABLES Final Resu lt * CBC WITH AUTODIFFERENTIAL (08/25/2025 12:02 PM CDT) Only the most recent of2 resultswithin the time period is included. Blood Deandre Duff MD HEMATOLOGY ORDERABLES Final Res ult * BASIC METABOLIC PANEL (07/14/2025 3:20 PM CDT) Only the most recent of2 resultswithin the time period is included. Blood us Deandre Duff MD CHEMISTRY ORDERABLES Final Resu lt * MAMMO 3D RODOLFO DIAGNOSTIC UNI RT 3D W OR WO CAD (04/08/2025 9:44 AM CDT) Anatomical Region Laterality Modality Breast Right Mammography us Abstract Provider MAMMO ORDERABLES Edited Result - Final from Last 3 Months or Most Recently Relevant to Health Maintenance Insurance MEDICARE PART A AND B AET MEDICARE [facility] AESSI [id number] [place] [address] MEDICARE PART A AND B AETNA MEDICARE SUPP AESSI
== END 2025-10-05 14:50 | disposition home or self-care (01) ==
LOC: ANHIMG 14:51
PROVIDERS: PCP Physician Assistant Medical; Visit Provider Radiology Radiation Oncology
DX: C50.911 Malignant neoplasm of unspecified site of right female breast (principal); C77.3 Secondary and unspecified malignant neoplasm of axilla and upper limb lymph nodes
CPT/HCPCS: 78815; A9552